=== PATIENT | male | born 1950 | race Caucasian/White ===

== ENCOUNTER 2020-07-10 07:02 | Outpatient (REF) | payer SELFPAY ==
[2020-07-10 07:32] LABS: Hematocrit 34.9 % (42-52); Hemoglobin 10.9 g/dl (14.0-18.0); Mean Corpuscular HGB Conc 31.2 g/dl (31.0-36.0); Mean Corpuscular Hemoglobin 27.6 pg (27.0-33.0); Mean Corpuscular Volume 88.4 fL (80-98); Mean Platelet Volume 11.6 fL (9.4-12.4); Platelet Count 590 X10*3/uL (160-400); Red Blood Count 3.95 X10*6/uL (4.60-5.80); Red Cell Distribution Width 15.4 % (11.0-16.0); White Blood Count 17.2 X10*3/uL (4.8-10.8)
[2020-07-10 07:55] LABS: Alanine Aminotransferase 8 U/L (0-40); Albumin Level 2.7 g/dL (3.5-5.0); Alkaline Phosphatase 161 U/L (39-117); Anion Gap 14 (12-20); Aspartate Amino Transferase 12 U/L (5-37); Bilirubin Total 0.3 mg/dL (0.0-1.0); Blood Urea Nitrogen 53 mg/dL (9-16); Calcium 8.2 mg/dL (8.4-10.2); Carbon Dioxide 28 mmol/L (22-29); Chloride 101 mmol/L (96-108); Estimated Glomerular Filt Rate 36; Glucose Random 143 mg/dL (60-115); Sodium 138 mmol/L (135-145); Total Protein 5.3 g/dL (6.5-8.0)
== END 2020-07-10 07:03 | disposition home or self-care (01) ==
LOC: HO.MMNH1L 07:02
PROVIDERS: Visit Provider Family Medicine
DX: L03.116 Cellulitis of left lower limb (principal)
CPT/HCPCS: 36415; 80053; 85027

== ENCOUNTER 2020-07-25 09:56 | Inpatient (IN) | payer MEDICARE, OTHER, SELFPAY ==
[2020-07-25] VITALS (15 sets, daily range): BP systolic 104–151; BP diastolic 63–94; PULSE 80–123; RESP 20–28; TEMP 34.3–36.6; O2SAT 93–100; BMI 25.8; BMI 26.7; BMI 24.9
--- NOTE | 2020-07-25 10:15 | ECG_ITS ---
Test Reason : AMS Blood Pressure : / mmHG Vent. Rate : 084 BPM Atrial Rate : 084 BPM P-R Int : 200 ms QRS Dur : 088 ms QT Int : 400 ms P-R-T Axes : 058 -37 056 degrees QTc Int : 472 ms Sinus rhythm with occasional Premature ventricular complexes Left axis deviation Low voltage QRS Inferior infarct , age undetermined Abnormal ECG No previous ECGs available Referred By: César Mccartney Electronically Signed By:HOANG PHELAN MD
--- NOTE | 2020-07-25 10:16 | XR_ITS ---
EXAMINATION: XR CHEST CLINICAL INFORMATION: Low lung volumes. COMPARISON: None TECHNIQUE: Frontal view of the chest was obtained. FINDINGS: Low lung volumes limit evaluation. The lungs are clear. The heart and mediastinal structures are unremarkable. XR/XR chest 1V IMPRESSION: Limited study. No acute cardiopulmonary process.
--- NOTE | 2020-07-25 10:17 | CT_ITS ---
EXAMINATION: CT HEAD WITHOUT CONTRAST CLINICAL INFORMATION: Acute mental status change. COMPARISON: None TECHNIQUE: Contiguous axial imaging was performed from the skull base to vertex without intravenous administration of contrast. Coronal and sagittal reformatted images were obtained. There is some limitation to the study secondary to motion artifact and difficulty with patient positioning. A repeat scan dated secondary to motion artifact on the first attempt. This CT examination was performed using dose optimization techniques as appropriate, variously including the following: *Automated exposure control *Adjustment of mA and/or kV according to patient size (this includes techniques or standardized protocols for targeted exams where dose is matched to indication/reason for exam; i.e. extremities or head) *Use of iterative reconstruction technique DLP: 1733 mGy-cm FINDINGS: A linear focus of low-attenuation is seen superiorly in the left parietal lobe (image 43, series 3). There is no evidence of acute intracranial hemorrhage. No abnormal mass effect or midline shift is seen. [place] to white matter differentiation is well preserved. No extra-axial fluid collections are identified. The ventricles are normal in size. Mild cortical atrophy is seen. The osseous structures and soft tissues are normal. The mastoid air cells and visualized portions of the paranasal sinuses are well aerated. Mild mid nasal septal deviation, apex the left is seen. CT/CT head/brain wo con IMPRESSION: Linear focus of low-attenuation in the left parietal lobe is nonspecific. This may be secondary to chronic microvascular changes or old infarct in the distribution of the left middle cerebral artery. This does not have an acute appearance. No evidence for acute intracranial hemorrhage. If symptoms persist or worsen, brain MRI should be considered.
[2020-07-25] MEDS: 0.9 % Sodium Chloride 1,000 ML 999 ML IVCONT ×2 (10:26→11:50)
--- NOTE | 2020-07-25 10:34 | PC.NURSE ---
PT TO CT SCAN
[2020-07-25 10:42] LABS: MANUAL DIFF FLAG NO
[2020-07-25 10:43] LABS: Basophils Percent Auto 0.1 % (0-2); Hematocrit 34.2 % (42-52); Hemoglobin 10.5 g/dl (14.0-18.0); Imm Gran Abs Auto 0.09 X10*3/uL (0.00-0.03); Imm Gran Pct Auto 0.6 % (0.0-0.4); Lymphocytes Absolute Auto 0.9 X10*3/uL (1.2-4.9); Lymphocytes Percent Auto 6.7 % (20-40); Mean Corpuscular HGB Conc 30.7 g/dl (31.0-36.0); Mean Corpuscular Hemoglobin 27.2 pg (27.0-33.0); Mean Corpuscular Volume 88.6 fL (80-98); Mean Platelet Volume 10.1 fL (9.4-12.4); Monocytes Absolute Auto 1.3 X10*3/uL (0.1-1.2); Monocytes Percent Auto 9.4 % (2-11); Neutrophils Absolute Auto 11.6 X10*3/uL (2.0-8.3); Neutrophils Percent Auto 83.2 % (45-73); Platelet Count 226 X10*3/uL (160-400); Red Blood Count 3.86 X10*6/uL (4.60-5.80); Red Cell Distribution Width 16.4 % (11.0-16.0); White Blood Count 13.9 X10*3/uL (4.8-10.8)
[2020-07-25 10:48] LABS: INTERNATIONAL NORM RATIO 1.1 (0.9-1.1); Prothrombin Time 12.5 SEC (10.8-13.0)
--- NOTE | 2020-07-25 10:56 | PC.NURSE ---
pt was st cath for urine spec bladder emptied of approx 800ml
--- NOTE | 2020-07-25 10:57 | PC.NURSE ---
pts left lower leg with edema and blistering, draining upper portion of leg swollen and pink in color compared to right
--- NOTE | 2020-07-25 11:05 | ED.AMS ---
HPI - Altered Mental Status General Chief Complaint: Altered Mental Status Stated Complaint: ams Time Seen by Provider: 07/25/20 10:13 Source: EMS Mode of arrival: EMS Limitations: altered mental status History of Present Illness HPI narrative: patient from rehab center with history of hypertension chronic renal disease schizoaffective disorder bipolar disorder chronic lymphedema the left leg sent here for increased confusion and change in mental status starting today patient was seen by nurse practitioner on 07/21 at that time patient was healthy appearing well nourished and well developed without any significant change in mental status MD complaint: altered mental status and decreased responsiveness Onset (ago): day(s) (1) Timing confirmed by: caregiver Related Data Home Medications Medication Instructions Recorded Confirmed acetaminophen [Tylenol] 650 mg PO Q6H PRN 07/25/20 07/25/20 betamethasone dipropionate 1 applic TOPICAL BID 07/25/20 07/25/20 bisacodyl [Dulcolax (bisacodyl)] 10 mg VA DAILY PRN 07/25/20 07/25/20 escitalopram oxalate 5 mg PO DAILY 07/25/20 07/25/20 gabapentin 100 mg PO TID 07/25/20 07/25/20 levothyroxine 100 mcg PO DAILY 07/25/20 07/25/20 magnesium hydroxide [Milk of 400 mg PO DAILY PRN 07/25/20 07/25/20 Magnesia] morphine 30 mg PO Q12H 07/25/20 07/25/20 oxycodone 10 mg PO Q4H PRN 07/25/20 07/25/20 spironolactone 25 mg PO DAILY 07/25/20 07/25/20 trazodone 50 mg PO BEDTIME 07/25/20 07/25/20 Allergies Allergy/AdvReac Type Severity Reaction Status Date / Time prochlorperazine Allergy Unknown unknown Verified 07/25/20 10:15 Review of Systems Review of Systems: Yes Unobtainable due to mental status Neurologic: Reports Abnormal speech present and Reports confusion Psychiatric: Psychiatric: Reports confusion PMFSH Past Medical History Medical History (Updated 07/25/20 @ 16:35 by César Mccartney MD) Abnormality of gait and mobility Anxiety Cellulitis of left leg Chronic kidney disease (CKD) 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 Dysphagia Gout Hypertension Hypothyroidism Lymphedema Major depression, recurrent Mesenteric lymphadenitis Mood disorder Muscle weakness (generalized) Non Hodgkin's lymphoma Non-Hodgkin lymphoma Schizoaffective disorder, bipolar type Social History Social History Advance Directives: No Advance Directives Information Provided: No Physical Exam Vital Signs: Vital Signs: Last Vital Signs Temp 93.9 F L 07/25/20 16:35 Pulse 119 H 07/25/20 16:35 Resp 20 07/25/20 16:35 BP 131/81 07/25/20 16:35 Pulse Ox 100 07/25/20 16:35 Body Mass Index 26.7 Const: General: no acute distress, confusion and lethargic Nutritional Appearance: average body habitus and well nourished Orientation/consciousness: oriented to person, confusion and lethargic Limitations: altered mental status HENMT: Head: Yes normal to inspection Ears: hearing grossly normal bilaterally Mouth: Normal oral and palatal mucosa present and moist mucous membranes Eyes: General: appearance normal, both eyes and all related structures Pupils: Equal, round and reactive pupils present Neck: Neck: Yes normal visual inspection Chest: Chest palpation & inspection: normal inspection of the chest Resp: Other: thick secretions in the mouth tachypneic Effort & Inspection: abnormal respiratory pattern and respiratory distress (moderate) Auscultation: crackles, rales and no rhonchi Cardio: Rate: regular rate Rhythm: regular rhythm Heart sounds: S1 normal heart sound present and S2 normal heart sound present Peripheral pulses: Peripheral pulses 2+ throughout GI: Inspection: Yes normal to inspection Palpation (GI): Soft to palpation, Firmness to palpation present (GI), nontender, no guarding and hepatosplenomegaly present Rectal Exam - Male: Yes deferred : General: Yes no CVA tenderness Back/Spine/Pelvis: Back: no CVA tenderness Thoracic/Lumbar Spine: thoracic and lumbar spine normal to inspection Skin: Rashes: other ( erythema left lower extremity) Neuro: General: oriented to person, confusion and Unable to assess gait Cranial nerves: Yes CN's II-XII intact bilaterally and Yes Equal, round and reactive pupils present Speech: Abnormal speech present Gait exam (Neuro): Unable to assess gait Motor exam (neuro): Pronator motor function not present Extrem: Ankle/foot/toe images: 1. 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 Hence LP was done to rule out any encephalopathy. Patient was intubated for the procedure and hypoxia. Will admit patient to ICU Time: 16:31 Reevaluation #2: patient head CT was negative for any acute inflammatory response spinal tap also was done which is negative for any bacterial meningitis patient started on acyclovir for now. Already patient received vancomycin and Zosyn. Chest CT scan showed bilateral infiltrate more on the left lower lobe and right middle lobe patient's symptoms likely from metabolic encephalopathy patient's Micki was informed about the prognosis and the management Procedures Intubation Time out performed: Yes sedative: Etomidate Mg Given: 20 paralytic: Rocuronium Mg Given: 50 Laryngoscope: Estefany Assist Device Used: fiber optic device ET Tube Size: 7.5 ET Tube Uncuffed: Yes Tube Secured Location: teeth Tube Placement Confirmation: visualized tube passing through cords, equal breath sounds bilaterally and confirmation by capnometry Patient Tolerated Procedure: well Intubation Complications: none Lumbar Puncture Time Out Performed: Yes Patient Position: right lateral decubitus Skin Prep: Povidone-Iodine 1% Spinal Needle Gauge: 22G Interspace Used: L3-L4 Fluid Initially Obtained: clear Complications: none MDM - Altered Mental Status Medical Records Attestation: I reviewed the patient's medical records. Lab Data Attestation: I reviewed the patient's lab results. Result diagrams: 07/25/20 10:29 07/25/20 10:29 Labs: Lab Results 07/25/20 07/25/20 07/25/20 Range/Units 10:28 10:28 10:29 WBC 13.9 H (4.8-10.8) X10*3/uL RBC 3.86 L (4.60-5.80) X10*6/uL Hgb 10.5 L (14.0-18.0) g/dl Hct 34.2 L (42-52) % MCV 88.6 (80-98) fL MCH 27.2 (27.0-33.0) pg MCHC 30.7 L (31.0-36.0) g/dl RDW 16.4 H (11.0-16.0) % Plt Count 226 D (160-400) X10*3/uL MPV 10.1 (9.4-12.4) fL Immature Gran % (Auto) 0.6 H (0.0-0.4) % Neut % (Auto) 83.2 H (45-73) % Lymph % (Auto) 6.7 L (20-40) % Floyd % (Auto) 9.4 (2-11) % Eos % (Auto) 0.0 (0-4) % Baso % (Auto) 0.1 (0-2) % Lymph # (Auto) 0.9 L (1.2-4.9) X10*3/uL Floyd # (Auto) 1.3 H (0.1-1.2) X10*3/uL Eos # (Auto) 0.0 (0.0-0.4) X10*3/uL Baso # (Auto) 0.0 (0.0-0.2) X10*3/uL Abs Immat Gran (auto) 0.09 H (0.00-0.03) X10*3/uL Absolute Neuts (auto) 11.6 H (2.0-8.3) X10*3/uL Absolute Nucleated RBC 0.000 (0.0-0.012) X10*3/uL Nucleated RBC % (auto) 0.0 (0.0-0.2) /100WBC PT 12.5 (10.8-13.0) SEC INR 1.1 (0.9-1.1) Sodium (135-145) mmol/L Potassium (3.3-5.1) mmol/l Chloride (96-108) mmol/L Carbon Dioxide (22-29) mmol/L Anion Gap (12-20) BUN (9-16) mg/dL Creatinine (0.5-1.4) mg/dL Estim Creat Clear Calc Estimated GFR Random Glucose (60-115) mg/dL Lactic Acid 2.8 H* (0.5-2.0) mmol/L Lactic Acid Fup @ 2Hr (0.5-2.0) mmol/L Calcium (8.4-10.2) mg/dL Total Bilirubin (0.0-1.0) mg/dL Direct Bilirubin (0.0-0.5) mg/dL AST (5-37) U/L ALT (0-40) U/L Alkaline Phosphatase (39-117) U/L Troponin I High Sens (<3.5-35.0) ng/L B-Natriuretic Peptide (<100) pg/mL Total Protein (6.5-8.0) g/dL Albumin (3.5-5.0) g/dL Urine Color Urine Appearance Urine pH (5.0-8.0) Ur Specific [place] (1.005-1.025) Urine Protein (NEG-TRACE) MG/DL Urine Glucose (UA) (NEG) MG/DL Urine Ketones (NEG) MG/DL Urine Blood (NEG) Urine Nitrite (NEG) Ur Leukocyte Esterase (NEG) CSF Tube Number CSF Volume ML CSF Appearance CSF Color CSF WBC MM*3 CSF RBC MM*3 CSF Neutrophils % CSF Lymphocytes % CSF Monocytes % % CSF Other Cells % % CSF Appearance (b) CSF Glucose mg/dL CSF Total Protein (15-45) mg/dL Coronavirus (PCR) (Negative) Influenza Type A (PCR) (Negative) Influenza Type B (PCR) (Negative) RSV RNA Qual (PCR) (Negative) 07/25/20 07/25/20 07/25/20 Range/Units 10:29 10:29 10:47 WBC (4.8-10.8) X10*3/uL RBC (4.60-5.80) X10*6/uL Hgb (14.0-18.0) g/dl Hct (42-52) % MCV (80-98) fL MCH (27.0-33.0) pg MCHC (31.0-36.0) g/dl RDW (11.0-16.0) % Plt Count (160-400) X10*3/uL MPV (9.4-12.4) fL Immature Gran % (Auto) (0.0-0.4) % Neut % (Auto) (45-73) % Lymph % (Auto) (20-40) % Floyd % (Auto) (2-11) % Eos % (Auto) (0-4) % Baso % (Auto) (0-2) % Lymph # (Auto) (1.2-4.9) X10*3/uL Floyd # (Auto) (0.1-1.2) X10*3/uL Eos # (Auto) (0.0-0.4) X10*3/uL Baso # (Auto) (0.0-0.2) X10*3/uL Abs Immat Gran (auto) (0.00-0.03) X10*3/uL Absolute Neuts (auto) (2.0-8.3) X10*3/uL Absolute Nucleated RBC (0.0-0.012) X10*3/uL Nucleated RBC % (auto) (0.0-0.2) /100WBC PT (10.8-13.0) SEC INR (0.9-1.1) Sodium 139 (135-145) mmol/L Potassium 4.8 (3.3-5.1) mmol/l Chloride 105 (96-108) mmol/L Carbon Dioxide 21 L (22-29) mmol/L Anion Gap 18 (12-20) BUN 36 H (9-16) mg/dL Creatinine 1.46 H (0.5-1.4) mg/dL Estim Creat Clear Calc 53.2 Estimated GFR 48 Random Glucose 170 H (60-115) mg/dL Lactic Acid (0.5-2.0) mmol/L Lactic Acid Fup @ 2Hr (0.5-2.0) mmol/L Calcium 8.3 L (8.4-10.2) mg/dL Total Bilirubin 0.5 (0.0-1.0) mg/dL Direct Bilirubin < 0.2 (0.0-0.5) mg/dL AST 16 (5-37) U/L ALT 9 (0-40) U/L Alkaline Phosphatase 115 D (39-117) U/L Troponin I High Sens < 3.5 (<3.5-35.0) ng/L B-Natriuretic Peptide 126 H (<100) pg/mL Total Protein 6.0 L (6.5-8.0) g/dL Albumin 3.1 L (3.5-5.0) g/dL Urine Color DARK YELLOW Urine Appearance HAZY Urine pH 5.5 (5.0-8.0) Ur Specific [place] >= 1.030 H (1.005-1.025) Urine Protein NEG (NEG-TRACE) MG/DL Urine Glucose (UA) NEG (NEG) MG/DL Urine Ketones NEG (NEG) MG/DL Urine Blood NEG (NEG) Urine Nitrite NEG (NEG) Ur Leukocyte Esterase NEG (NEG) CSF Tube Number CSF Volume ML CSF Appearance CSF Color CSF WBC MM*3 CSF RBC MM*3 CSF Neutrophils % CSF Lymphocytes % CSF Monocytes % % CSF Other Cells % % CSF Appearance (b) CSF Glucose mg/dL CSF Total Protein (15-45) mg/dL Coronavirus (PCR) (Negative) Influenza Type A (PCR) (Negative) Influenza Type B (PCR) (Negative) RSV RNA Qual (PCR) (Negative) 07/25/20 07/25/20 07/25/20 Range/Units 11:55 15:07 15:07 WBC (4.8-10.8) X10*3/uL RBC (4.60-5.80) X10*6/uL Hgb (14.0-18.0) g/dl Hct (42-52) % MCV (80-98) fL MCH (27.0-33.0) pg MCHC (31.0-36.0) g/dl RDW (11.0-16.0) % Plt Count (160-400) X10*3/uL MPV (9.4-12.4) fL Immature Gran % (Auto) (0.0-0.4) % Neut % (Auto) (45-73) % Lymph % (Auto) (20-40) % Floyd % (Auto) (2-11) % Eos % (Auto) (0-4) % Baso % (Auto) (0-2) % Lymph # (Auto) (1.2-4.9) X10*3/uL [place] # (Auto) (0.1-1.2) X10*3/uL Eos # (Auto) (0.0-0.4) X10*3/uL Baso # (Auto) (0.0-0.2) X10*3/uL Abs Immat Gran (auto) (0.00-0.03) X10*3/uL Absolute Neuts (auto) (2.0-8.3) X10*3/uL Absolute Nucleated RBC (0.0-0.012) X10*3/uL Nucleated RBC % (auto) (0.0-0.2) /100WBC PT (10.8-13.0) SEC INR (0.9-1.1) Sodium (135-145) mmol/L Potassium (3.3-5.1) mmol/l Chloride (96-108) mmol/L Carbon Dioxide (22-29) mmol/L Anion Gap (12-20) BUN (9-16) mg/dL Creatinine (0.5-1.4) mg/dL Estim Creat Clear Calc Estimated GFR Random Glucose (60-115) mg/dL Lactic Acid (0.5-2.0) mmol/L Lactic Acid Fup @ 2Hr (0.5-2.0) mmol/L Calcium (8.4-10.2) mg/dL Total Bilirubin (0.0-1.0) mg/dL Direct Bilirubin (0.0-0.5) mg/dL AST (5-37) U/L ALT (0-40) U/L Alkaline Phosphatase (39-117) U/L Troponin I High Sens (<3.5-35.0) ng/L B-Natriuretic Peptide (<100) pg/mL Total Protein (6.5-8.0) g/dL Albumin (3.5-5.0) g/dL Urine Color Urine Appearance Urine pH (5.0-8.0) Ur Specific [place] (1.005-1.025) Urine Protein (NEG-TRACE) MG/DL Urine Glucose (UA) (NEG) MG/DL Urine Ketones (NEG) MG/DL Urine Blood (NEG) Urine Nitrite (NEG) Ur Leukocyte Esterase (NEG) CSF Tube Number 1 4 CSF Volume 1.5 ML CSF Appearance CLEAR CSF Color COLORLESS CSF WBC 3 MM*3 CSF RBC 2 MM*3 CSF Neutrophils 0 % CSF Lymphocytes 100 % CSF Monocytes % 0 % CSF Other Cells % 0 % CSF Appearance (b) Clear, Colorless CSF Glucose 80 mg/dL CSF Total Protein 35.9 (15-45) mg/dL Coronavirus (PCR) NEGATIVE (Negative) Influenza Type A (PCR) NEGATIVE (Negative) Influenza Type B (PCR) NEGATIVE (Negative) RSV RNA Qual (PCR) NEGATIVE (Negative) 07/25/20 Range/Units 15:41 WBC (4.8-10.8) X10*3/uL RBC (4.60-5.80) X10*6/uL Hgb (14.0-18.0) g/dl Hct (42-52) % MCV (80-98) fL MCH (27.0-33.0) pg MCHC (31.0-36.0) g/dl RDW (11.0-16.0) % Plt Count (160-400) X10*3/uL MPV (9.4-12.4) fL Immature Gran % (Auto) (0.0-0.4) % Neut % (Auto) (45-73) % Lymph % (Auto) (20-40) % Floyd % (Auto) (2-11) % Eos % (Auto) (0-4) % Baso % (Auto) (0-2) % Lymph # (Auto) (1.2-4.9) X10*3/uL [place] # (Auto) (0.1-1.2) X10*3/uL Eos # (Auto) (0.0-0.4) X10*3/uL Baso # (Auto) (0.0-0.2) X10*3/uL Abs Immat Gran (auto) (0.00-0.03) X10*3/uL Absolute Neuts (auto) (2.0-8.3) X10*3/uL Absolute Nucleated RBC (0.0-0.012) X10*3/uL Nucleated RBC % (auto) (0.0-0.2) /100WBC PT (10.8-13.0) SEC INR (0.9-1.1) Sodium (135-145) mmol/L Potassium (3.3-5.1) mmol/l Chloride (96-108) mmol/L Carbon Dioxide (22-29) mmol/L Anion Gap (12-20) BUN (9-16) mg/dL Creatinine (0.5-1.4) mg/dL Estim Creat Clear Calc Estimated GFR Random Glucose (60-115) mg/dL Lactic Acid (0.5-2.0) mmol/L Lactic Acid Fup @ 2Hr 2.0 (0.5-2.0) mmol/L Calcium (8.4-10.2) mg/dL Total Bilirubin (0.0-1.0) mg/dL Direct Bilirubin (0.0-0.5) mg/dL AST (5-37) U/L ALT (0-40) U/L Alkaline Phosphatase (39-117) U/L Troponin I High Sens (<3.5-35.0) ng/L B-Natriuretic Peptide (<100) pg/mL Total Protein (6.5-8.0) g/dL Albumin (3.5-5.0) g/dL Urine Color Urine Appearance Urine pH (5.0-8.0) Ur Specific [place] (1.005-1.025) Urine Protein (NEG-TRACE) MG/DL Urine Glucose (UA) (NEG) MG/DL Urine Ketones (NEG) MG/DL Urine Blood (NEG) Urine Nitrite (NEG) Ur Leukocyte Esterase (NEG) CSF Tube Number CSF Volume ML CSF Appearance CSF Color CSF WBC MM*3 CSF RBC MM*3 CSF Neutrophils % CSF Lymphocytes % CSF Monocytes % % CSF Other Cells % % CSF Appearance (b) CSF Glucose mg/dL CSF Total Protein (15-45) mg/dL Coronavirus (PCR) (Negative) Influenza Type A (PCR) (Negative) Influenza Type B (PCR) (Negative) RSV RNA Qual (PCR) (Negative) Imaging Data CT scan - head: Attestation: I personally reviewed and interpreted this imaging study as follows: Radiologist's impression: CT/CT head/brain wo con IMPRESSION: Linear focus of low-attenuation in the left parietal lobe is nonspecific. This may be secondary to chronic microvascular changes or old infarct in the distribution of the left middle cerebral artery. This does not have an acute appearance. No evidence for acute intracranial hemorrhage. If symptoms persist or worsen, brain MRI should be considered. ECG Data ECG #1: Attestation: I personally reviewed and interpreted this ECG as follows: ECG interpretation date: 07/25/20 Interpretation: normal sinus rhythm with ventricular rate of 84 left axis deviation Q-waves in inferior leads no acute ischemia Critical Care Time Critical Care Time Critical Care Time: Yes Total Critical Care Time: 60 Attestation: includes patient care excluding procedure Discharge Plan Discharge Clinical Impression: Acute metabolic encephalopathy, Acute alteration in mental status Pneumonia Qualifiers: Pneumonia type: due to unspecified organism Laterality: bilateral Lung location: lower lobe of lung Qualified Code(s): J18.9 - Pneumonia, unspecified organism Sepsis Qualifiers: Sepsis type: sepsis due to unspecified organism Sepsis acute organ dysfunction status: with acute organ dysfunction Severe sepsis acute organ dysfunction type: encephalopathy Severe sepsis shock status: without septic shock Qualified Code(s): A41.9 - Sepsis, unspecified organism Patient Disposition: Admitted As Inpatient
[2020-07-25 11:08] LABS: Glucose Urine UA NEG (NEG); Leukocyte Esterase Urine NEG (NEG); Nitrite Urine NEG (NEG); PH 5.5 (5.0-8.0); Specific Gravity - Urine >= 1.030 (1.005-1.025); Urine Blood NEG (NEG); Urine Ketones NEG (NEG); Urine Protein NEG (NEG-TRACE)
[2020-07-25 11:12] LABS: Appearance Urine HAZY; Color Urine DARK YELLOW
[2020-07-25 11:25] LABS: Lactic Acid 2.8 mmol/L (0.5-2.0)
--- NOTE | 2020-07-25 11:31 | XR_ITS ---
EXAMINATION: XR TIBIA AND FIBULA, LEFT CLINICAL INFORMATION: Cellulitis. COMPARISON: None TECHNIQUE: AP and lateral views of the left tibia and fibula were obtained. FINDINGS: Severe tibiotalar degenerative joint changes are seen. There is no acute fracture or dislocation. The tibia and fibula are intact. Mild to moderate soft tissue swelling is seen most pronounced surrounding the ankle. No subcutaneous emphysema is seen. XR/XR tibia fibula LT 2V IMPRESSION: 1. Severe tibiotalar degenerative joint changes without acute fracture. Correlate with physical exam and patient history. 2. Mild to moderate soft tissue swelling without overt acute emphysema.
[2020-07-25 11:39] LABS: Alanine Aminotransferase 9 U/L (0-40); Albumin Level 3.1 g/dL (3.5-5.0); Alkaline Phosphatase 115 U/L (39-117); Aspartate Amino Transferase 16 U/L (5-37); Bilirubin Direct < 0.2 mg/dL (0.0-0.5); Bilirubin Total 0.5 mg/dL (0.0-1.0)
[2020-07-25] MEDS: Piperacillin Sodium/Tazobactam 3.375 GM in 0.9 % Sodium Chloride 50 ML IV (11:50)
[2020-07-25 12:40] LABS: Reflex Lactate? Lactic Acid Added
[2020-07-25 12:41] LABS: Influenza A PCR NEGATIVE (Negative); Influenza B PCR NEGATIVE (Negative); Resp Syncy Virus RNA Qual PCR NEGATIVE (Negative); SARS COV2 PCR INHOUSE NEGATIVE (Negative)
[2020-07-25] MEDS: vancomycin HCL 1,000 MG in 0.9 % Sodium Chloride 250 ML 270 MG IV (13:02)
[2020-07-25 13:21] LABS: Anion Gap 18 (12-20); Blood Urea Nitrogen 36 mg/dL (9-16); Calcium 8.3 mg/dL (8.4-10.2); Carbon Dioxide 21 mmol/L (22-29); Chloride 105 mmol/L (96-108); Creatinine Clr Calc Pharmacy 53.2; Estimated Glomerular Filt Rate 48; Glucose Random 170 mg/dL (60-115); Potassium 4.8 mmol/l (3.3-5.1); Sodium 139 mmol/L (135-145)
[2020-07-25] MEDS: Furosemide 20 MG/2 ML VIAL IVPUSH (14:10)
[2020-07-25 14:22] LABS: B Type Natriuretic Peptide 126 pg/mL (<100); Troponin-I High Sensitivity < 3.5 ng/L (<3.5-35.0)
--- NOTE | 2020-07-25 14:54 | CT_ITS ---
EXAMINATION: CT CHEST WITH CONTRAST CLINICAL INFORMATION: Atypical pneumonia. Acute mental status change. COMPARISON: Previous chest x-ray from earlier the same day TECHNIQUE: Multidetector volumetric CT imaging of the chest was obtained after the administration of 65 mL of Omnipaque 350 intravenous contrast without immediate adverse reactions. Axial MIP volume rendering provided. Sagittal and coronal reformatted images were obtained. This CT examination was performed using dose optimization techniques as appropriate, variously including the following: *Automated exposure control *Adjustment of mA and/or kV according to patient size (this includes techniques or standardized protocols for targeted exams where dose is matched to indication/reason for exam; i.e. extremities or head) *Use of iterative reconstruction technique DLP: 318 mGy-cm FINDINGS: LUNGS: There is an endotracheal tube with tip 3.5 cm above the jael. There is dense airspace disease seen in the left lower lobe with air bronchograms. There is soft tissue opacification of the left lower lobe bronchus. There is patchy airspace disease seen in the lingula. There is patchy airspace disease seen in the right lower lobe. There is a more linear-appearing subsegmental atelectasis or infiltrate seen in the posterior segment of the right upper lobe adjacent to the major fissure. Appearance is not typical of Covid infection. MEDIASTINUM: There is mediastinal lymphadenopathy. There is a nasogastric tube with tip in the stomach. There is question of fluid seen in the lower posterior mediastinum adjacent to the distal thoracic esophagus versus possibly loculated pleural effusions or necrotic or cystic change of lymph nodes. For example, on the right measuring 2.7 x 5 cm and on the left measuring 2 x 4 cm axial image 40 series 7. The heart is slightly enlarged. There is mild coronary artery calcification. There is no pericardial effusion. PLEURA: There is a trace left pleural effusion. AXILLA: No chest wall mass or enlarged axillary lymph nodes are seen. UPPER ABDOMEN: Evaluation of the abdomen is limited due to artifact from the patient's hands being at his side. There is decreased attenuation in the high posterior right lobe of the liver for example axial image 48 series 7 and in the spleen, question related to artifact from the patient's arms. The gallbladder is prominent. There is a small amount of ascites. There is question of infiltration of the fat in the anterior upper abdomen in the region of the greater omentum. OSSEOUS STRUCTURES: There are degenerative changes of the spine and at the left shoulder. CT/CT chest w con IMPRESSION: Bilateral multilobar pneumonia, greatest in the left lower lobe. Appearance is atypical for Covid infection. Satisfactory position of nasogastric tube and endotracheal tubes. Diffuse mediastinal lymphadenopathy. Low-attenuation seen in the posterior mediastinum adjacent to the distal thoracic esophagus, question representing mediastinal fluid collection versus cystic or necrotic change of a lymph node versus loculated pleural fluid. Clinical correlation recommended. Small amount of ascites seen in the upper abdomen. Question of infiltration of the fat in the anterior upper abdomen in the region of the greater omentum. Low-attenuation area seen in the liver and spleen, probably artifactual due to the patient's arms being at his side. These findings could be better evaluated with dedicated CT of the abdomen and pelvis if clinically indicated.
--- NOTE | 2020-07-25 14:54 | CT_ITS ---
EXAMINATION: CT HEAD WITH CONTRAST CLINICAL INFORMATION: Altered mental status, possible encephalitis COMPARISON: CT had noncontrast 07/25/2020 TECHNIQUE: Contiguous axial imaging was performed from the skull base to vertex following the administration of 65 mL of Omnipaque 350 intravenous contrast. Additional coronal and sagittal reformatted images are generated on the CT workstation and uploaded to PACS. This CT examination was performed using dose optimization techniques as appropriate, variously including the following: *Automated exposure control *Adjustment of mA and/or kV according to patient size (this includes techniques or standardized protocols for targeted exams where dose is matched to indication/reason for exam; i.e. extremities or head) *Use of iterative reconstruction technique DLP: 914 mGy-cm FINDINGS: There is no intracranial hemorrhage, hematoma, or extra-axial fluid collection. The ventricles are normal in size. There is no hydrocephalus, edema, or mass effect. There is normal enhancement. No enhancing parenchymal or extra-axial lesion. No abnormal leptomeningeal enhancement. Vascularity is unremarkable. The cavernous sinuses are symmetric. There is focal gliosis anterior left periventricular white matter similar to noncontrast exam. No abnormal parenchymal enhancement. The stone-white matter differentiation is otherwise symmetric. There is no visible acute territorial infarct or mass lesion. The calvarium appears intact. There is no pneumocephalus or orbital emphysema. The visualized sinuses and middle ears and mastoid air cells show no significant mucosal thickening. There are no air-fluid levels. CT/CT head/brain w con IMPRESSION: 1. Left periventricular white matter gliosis similar to noncontrast exam 07/25/2020. 2. No abnormal enhancement.
--- NOTE | 2020-07-25 15:22 | PM.CCHP ---
History of Present Illness Date of Service: 07/25/20 Chief Complaint: altered mental status 70-year-old male background history of non-Hodgkin's lymphoma and CLL but not on any current chemotherapy or immunosuppressive therapy with underlying schizoaffective disorder but within normal mental status and normal cognitive ability noted to be altered and in the emergency room became markedly delirious and agitated in addition he became hypothermic he required urgent intubation which was done without complication and following this sedation we obtained permission for an urgent spinal tap and CSF was obtained but was clear and colorless and the results are pending and the patient will subsequently be sent for CT scan of brain chest and abdomen did being done with contrast and was covered with an initial dose of vancomycin and Zosyn and acyclovir Review of Systems Review of Systems: Yes Unobtainable due to mental status Neurologic: Reports Abnormal speech present and Reports confusion Psychiatric: Psychiatric: Reports confusion PMFSH Past Medical History Medical History Abnormality of gait and mobility Anxiety Cellulitis of left leg Chronic kidney disease (CKD) 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 Dysphagia Gout Hypertension Hypothyroidism Lymphedema Major depression, recurrent Mesenteric lymphadenitis Mood disorder Muscle weakness (generalized) Non-Hodgkin lymphoma Schizoaffective disorder, bipolar type Social History Social History Advance Directives: No Advance Directives Information Provided: No Meds Allergies Allergy/AdvReac Type Severity Reaction Status Date / Time prochlorperazine Allergy Unknown unknown Verified 07/25/20 10:15 Home Medications Medication Instructions Recorded Confirmed Type acetaminophen [Tylenol] 650 mg PO Q6H PRN 07/25/20 07/25/20 History betamethasone dipropionate 1 applic TOPICAL BID 07/25/20 07/25/20 History bisacodyl [Dulcolax (bisacodyl)] 10 mg [place] DAILY PRN 07/25/20 07/25/20 History escitalopram oxalate 5 mg PO DAILY 07/25/20 07/25/20 History gabapentin 100 mg PO TID 07/25/20 07/25/20 History levothyroxine 100 mcg PO DAILY 07/25/20 07/25/20 History magnesium hydroxide [Milk of 400 mg PO DAILY PRN 07/25/20 07/25/20 History Magnesia] morphine 30 mg PO Q12H 07/25/20 07/25/20 History oxycodone 10 mg PO Q4H PRN 07/25/20 07/25/20 History spironolactone 25 mg PO DAILY 07/25/20 07/25/20 History trazodone 50 mg PO BEDTIME 07/25/20 07/25/20 History Physical Exam Vital Signs: Vital Signs: Last Vital Signs Temp 94.6 F L 07/25/20 14:24 Pulse 110 H 07/25/20 14:24 Resp 28 H 07/25/20 14:24 BP 146/79 H 07/25/20 14:00 Pulse Ox 97 07/25/20 14:00 Body Mass Index 26.7 highly agitated delirium capable of moving all 4 extremities left lower extremity was markedly swollen and very distorted anatomy with overlying shallow diffuse bullous lesions in the anterior tibial compartment with significant rubor and warmth cardiovascular with bedside echo demonstrating hyperdynamic left ventricle with all 4 chambers normal and no primary valve or pericardial disease chest x-ray implied some interstitial disease abdomen soft no palpable organomegaly nondistended no guarding EKG normal sinus rhythm with left axis no acute changes Const: General: confusion Orientation/consciousness: confusion Neuro: General: confusion Speech: Abnormal speech present Results Labs CBC and Chem 7: 07/25/20 10:29 07/25/20 10:29 Labs: Laboratory Results - last 24 hr 07/25/20 07/25/20 07/25/20 10:28 10:28 10:29 MCV 88.6 MCH 27.2 MCHC 30.7 L RDW 16.4 H Plt Count 226 D MPV 10.1 Immature Gran % (Auto) 0.6 H Neut % (Auto) 83.2 H Lymph % (Auto) 6.7 L [place] % (Auto) 9.4 Eos % (Auto) 0.0 Baso % (Auto) 0.1 Lymph # (Auto) 0.9 L [place] # (Auto) 1.3 H Eos # (Auto) 0.0 Baso # (Auto) 0.0 Abs Immat Gran (auto) 0.09 H Absolute Neuts (auto) 11.6 H Absolute Nucleated RBC 0.000 Nucleated RBC % (auto) 0.0 PT 12.5 INR 1.1 Anion Gap Estim Creat Clear Calc Estimated GFR Random Glucose Lactic Acid 2.8 H* Calcium Total Bilirubin Direct Bilirubin AST ALT Alkaline Phosphatase Troponin I High Sens B-Natriuretic Peptide Total Protein Albumin Urine Color Urine Appearance Urine pH Ur Specific [place] Urine Protein Urine Glucose (UA) Urine Ketones Urine Blood Urine Nitrite Ur Leukocyte Esterase Coronavirus (PCR) Influenza Type A (PCR) Influenza Type B (PCR) RSV RNA Qual (PCR) 07/25/20 07/25/20 07/25/20 10:29 10:29 10:47 MCV MCH MCHC RDW Plt Count MPV Immature Gran % (Auto) Neut % (Auto) Lymph % (Auto) [place] % (Auto) Eos % (Auto) Baso % (Auto) Lymph # (Auto) [place] # (Auto) Eos # (Auto) Baso # (Auto) Abs Immat Gran (auto) Absolute Neuts (auto) Absolute Nucleated RBC Nucleated RBC % (auto) PT INR Anion Gap 18 Estim Creat Clear Calc 53.2 Estimated GFR 48 Random Glucose 170 H Lactic Acid Calcium 8.3 L Total Bilirubin 0.5 Direct Bilirubin < 0.2 AST 16 ALT 9 Alkaline Phosphatase 115 D Troponin I High Sens < 3.5 B-Natriuretic Peptide 126 H Total Protein 6.0 L Albumin 3.1 L Urine Color DARK YELLOW Urine Appearance HAZY Urine pH 5.5 Ur Specific [place] >= 1.030 H Urine Protein NEG Urine Glucose (UA) NEG Urine Ketones NEG Urine Blood NEG Urine Nitrite NEG Ur Leukocyte Esterase NEG Coronavirus (PCR) Influenza Type A (PCR) Influenza Type B (PCR) RSV RNA Qual (PCR) 07/25/20 11:55 MCV MCH MCHC RDW Plt Count MPV Immature Gran % (Auto) Neut % (Auto) Lymph % (Auto) [place] % (Auto) Eos % (Auto) Baso % (Auto) Lymph # (Auto) [place] # (Auto) Eos # (Auto) Baso # (Auto) Abs Immat Gran (auto) Absolute Neuts (auto) Absolute Nucleated RBC Nucleated RBC % (auto) PT INR Anion Gap Estim Creat Clear Calc Estimated GFR Random Glucose Lactic Acid Calcium Total Bilirubin Direct Bilirubin AST ALT Alkaline Phosphatase Troponin I High Sens B-Natriuretic Peptide Total Protein Albumin Urine Color Urine Appearance Urine pH Ur Specific [place] Urine Protein Urine Glucose (UA) Urine Ketones Urine Blood Urine Nitrite Ur Leukocyte Esterase Coronavirus (PCR) NEGATIVE Influenza Type A (PCR) NEGATIVE Influenza Type B (PCR) NEGATIVE RSV RNA Qual (PCR) NEGATIVE Imaging Radiologist's Impressions: Impressions Chest X-Ray 07/25/20 10:16 IMPRESSION: Limited study. No acute cardiopulmonary process. Head CT 07/25/20 10:17 IMPRESSION: Linear focus of low-attenuation in the left parietal lobe is nonspecific. This may be secondary to chronic microvascular changes or old infarct in the distribution of the left middle cerebral artery. This does not have an acute appearance. No evidence for acute intracranial hemorrhage. If symptoms persist or worsen, brain MRI should be considered. Tibia/Fibula X-Ray 07/25/20 11:31 IMPRESSION: 1. Severe tibiotalar degenerative joint changes without acute fracture. Correlate with physical exam and patient history. 2. Mild to moderate soft tissue swelling without overt acute emphysema. Assessment and Plan (1) Encephalopathy acute: Status: Acute (2) Lactic acidosis: Status: Acute (3) Sepsis: Status: Acute patient has been fully cultured including CSF with all imaging obtained will clearly need Hill catheter IV fluid initiation and quite possibly not the full 30 cc/kilogram because of a pattern of interstitial edema on his chest x-ray so I question volume status and will be covered empirically until results of CSF and cultures come back with combination of vancomycin and Zosyn and acyclovir and until zone not infection is ruled out will additionally cover with the doxycycline in addition metabolically I will check his thyroid functions and be sure he is not toxic of course I cannot rule out encephalitis on the basis of his leukemia versus lymphoma with [employer] involvement
[2020-07-25] MEDS: iohexoL 350 MG/ML 100 ML INFUS..BTL IV (15:28)
[2020-07-25 15:36] LABS: CSF Appearance Clear, Colorless; CSF Tube # 1
[2020-07-25] MEDS: Etomidate 20 MG/10 ML VIAL IVPUSH (15:36)
[2020-07-25] MEDS: Rocuronium Bromide 50 MG/5 ML VIAL IVPUSH (15:36)
[2020-07-25] MEDS: propofoL 1,000 MG/100 ML VIAL 11.04 MG IVCONT (15:36)
[2020-07-25 15:45] LABS: Glucose CSF 80 mg/dL; Total Protein CSF 35.9 mg/dL (15-45)
[2020-07-25] MEDS: 0.9 % Sodium Chloride 1,000 ML 100 ML IVCONT ×2 (15:57→17:25)
--- NOTE | 2020-07-25 15:58 | PC.NURSE ---
per dr ganesh chau initiated d/t core temp of 93.7f, target temp 96f.
[2020-07-25 16:25] LABS: Appearance CSF CLEAR; CSF Tube # 4; CSF Volume 1.5 ML
[2020-07-25 16:26] LABS: CSF Monos 0 %; CSF Other Cells % 0 %; Color CSF COLORLESS; Lymphocytes CSF 100 %; Neutrophils CSF 0 %; Red Blood Cell CSF 2 MM*3; White Blood Cell CSF 3 MM*3
[2020-07-25] MEDS: fentaNYL citrate/NS 1,000 MCG/100 ML PLAST..BAG 5 MCG IVCONT (17:21)
[2020-07-25] MEDS: 0.9 % Sodium Chloride Flush 3 ML SYRINGE IVFLUSH ×2 (17:24→17:25)
[2020-07-25] MEDS: Chlorhexidine Gluc Oral Rinse 15 ML MOUTHWASH BUCCAL ×2 (17:45→21:52)
[2020-07-25] MEDS: Doxycycline Hyclate 100 MG in 0.9 % Sodium Chloride 250 ML 166.67 MG IV (17:45)
[2020-07-25] MEDS: Enoxaparin Sodium 40 MG/0.4 ML SYRINGE SUBCUT (17:48)
[2020-07-25 18:29] LABS: Free T4 (Free Thyroxine) 1.18 ng/dL (0.71-1.85); Thyroid Stimulating Hormone 0.69 uIU/mL (0.32-4.0)
[2020-07-25 19:02] LABS: Amphetamine Screen Urine Not Detected (Not Detect); Barbiturates, Urine Not Detected (Not Detect); Benzodiazepines Screen Urine Not Detected (Not Detect); Cannabinoid Screen Urine Not Detected (Not Detect); Cocaine Screen Urine Not Detected (Not Detect); Opiate Screen Urine POSITIVE (Not Detect); Phencyclidine Screen Urine Not Detected (Not Detect)
--- NOTE | 2020-07-25 19:11 | PC.NURSE ---
1745- PT ARRIVAL TO UNIT- TITRATING UP PROPOFOL, FENTANYL GTT STARTED- NS RUNNING AT 100 MLS/HR; BP STABLE; 18 G PLACED IN LEROY; BILAT 20 G IN BOTH ACs LUNG SOUNDS COARSE RHONCHI AND DIMINISHED; VENTILATING ON PCV SETTINGS;OG TUBE IN PLACE LOW INTERMITTENT SUCTION; RESTRAINTS PLACED AT 1800; ON AIRLOSS BED; ON BEAR HUGGER FOR HYPOTHERMIA; VSS CURRENTLY; CHIKIS UPDATED; REPORT GIVEN TO ONCOMING HORTENSIA FRANCO AND MOIRA BELEN
--- NOTE | 2020-07-25 20:24 | W.PM.CCHP ---
Procedures Abscess I/D Date of Service: 07/25/20 <MOIRA Carlton - Last Filed: 07/25/20 20:49> Central Line Placement Right IJ: Central Line Comments: for venous access <MOIRA Carlton - Last Filed: 07/25/20 20:49> Consent for Procedure: Emergent-no informed consent obtained <MOIRA Carlton - Last Filed: 07/25/20 20:49> Time out performed: Yes <MOIRA Carlton - Last Filed: 07/25/20 20:49> Sterile Technique Used: Yes <MOIRA Carlton - Last Filed: 07/25/20 20:49> Patient placed on monitor/pulse ox: Yes <MOIRA Carlton - Last Filed: 07/25/20 20:49> MD prep: mask, gown and gloves <MOIRA Carlton - Last Filed: 07/25/20 20:49> Central line prep: Chlorhexidine scrub and sterile drapes applied <MOIRA Carlton - Last Filed: 07/25/20 20:49> Ultrasound used for placement: Yes <MOIRA Carlton - Last Filed: 07/25/20 20:49> Central line lumen inserted: triple <MOIRA Carlton - Last Filed: 07/25/20 20:49> Post procedure: sutured in place, good blood return, all ports aspirated, flushed, capped and sterile dressing applied <MOIRA Carlton - Last Filed: 07/25/20 20:49> Post procedure x-ray: tip of catheter in good position and no pneumothorax seen <MOIRA Carlton - Last Filed: 07/25/20 20:49> Patient tolerated procedure: well and no complications <MOIRA Carlton - Last Filed: 07/25/20 20:49>
--- NOTE | 2020-07-25 20:26 | XR_ITS ---
EXAMINATION: XR CHEST CLINICAL INFORMATION: Line placement. COMPARISON: Chest x-ray 07/25/2020, 10:[address] chest 07/25/2020 3:21 PM TECHNIQUE: Frontal portable view of the chest was obtained. 8:13 PM FINDINGS: Tubes and lines: 1. Endotracheal tube 4.3 cm above jael. 2. Right IJ catheter tip at cavoatrial junction. 3. Nasogastric tube passes below diaphragm into stomach. Catheter tip below lower margin of film. Lung volume remains low. Dense opacity remains at the left lung base similar prior studies consistent with the known consolidation and pleural effusion. No significant pulmonary vascular congestion. No pneumothorax. XR/XR chest 1V IMPRESSION: 1. Endotracheal tube 4.3 cm above jael. 2. Right IJ catheter tip at cavoatrial junction. 3. Nasogastric tube passes below diaphragm into stomach. Catheter tip below lower margin of film. 4. Persistent dense left lung base.
[2020-07-25] MEDS: Albuterol/Iprat 2.5/0.5MG 3 ML AMPUL.NEB INHALE (20:35)
[2020-07-25 20:36] LABS: Appearance CSF CLEAR
[2020-07-25 20:37] LABS: CSF Tube # 3; Color CSF COLORLESS
[2020-07-25] MEDS: Famotidine/PF 20 MG/2 ML VIAL IVPUSH (21:52)
[2020-07-25] MEDS: propofoL 1,000 MG/100 ML VIAL 16.56 MG IVCONT (22:25)
[2020-07-25 22:59] LABS: pH VBG 7.38 (7.32-7.43)
[2020-07-25 23:00] LABS: Base Excess VBG -3.6 mmol/L; HCO3 VBG 21 mmol/L; Oxygen Saturation VBG 82.8 %; PCO2 VBG 36 mmhg; PO2 VBG 43 mmhg
[2020-07-25 23:07] LABS: Ammonia 32 umol/L (13-55)
[2020-07-26] VITALS (28 sets, daily range): BP systolic 88–129; BP diastolic 33–73; PULSE 68–107; RESP 20–27; TEMP 36–37.3; O2SAT 40–100; BMI 26.2
[2020-07-26 00:27] LABS: Folate 6.5 ng/mL (> or = 4.0); Vitamin B12 723 pg/mL (200-900)
[2020-07-26] MEDS: propofoL 1,000 MG/100 ML VIAL 22.08 MG IVCONT ×3 (01:26→22:08)
[2020-07-26] MEDS: 0.9 % Sodium Chloride 1,000 ML 100 ML IVCONT ×4 (01:31→20:01)
[2020-07-26 06:02] LABS: Basophils Absolute Auto 0.1 X10*3/uL (0.0-0.2); Basophils Percent Auto 0.2 % (0-2); Eosinophils Percent Auto 0.2 % (0-4); Hematocrit 32.6 % (42-52); Hemoglobin 10.5 g/dl (14.0-18.0); Imm Gran Abs Auto 0.13 X10*3/uL (0.00-0.03); Imm Gran Pct Auto 0.5 % (0.0-0.4); Lymphocytes Absolute Auto 1.1 X10*3/uL (1.2-4.9); Lymphocytes Percent Auto 4.2 % (20-40); MANUAL DIFF FLAG SCAN; Mean Corpuscular HGB Conc 32.2 g/dl (31.0-36.0); Mean Corpuscular Hemoglobin 27.9 pg (27.0-33.0); Mean Corpuscular Volume 86.7 fL (80-98); Mean Platelet Volume 10.1 fL (9.4-12.4); Monocytes Absolute Auto 2.9 X10*3/uL (0.1-1.2); Monocytes Percent Auto 11.4 % (2-11); Neutrophils Absolute Auto 21.2 X10*3/uL (2.0-8.3); Neutrophils Percent Auto 83.5 % (45-73); Platelet Count 266 X10*3/uL (160-400); Red Blood Count 3.76 X10*6/uL (4.60-5.80); Red Cell Distribution Width 16.8 % (11.0-16.0); SCAN SMEAR FLAG 1; White Blood Count 25.4 X10*3/uL (4.8-10.8)
[2020-07-26 06:16] LABS: Base Excess VBG -6.1 mmol/L; HCO3 VBG 18 mmol/L; PCO2 VBG 33 mmhg; PO2 VBG 53 mmhg; pH VBG 7.37 (7.32-7.43)
[2020-07-26] MEDS: propofoL 1,000 MG/100 ML VIAL 11.04 MG IVCONT (06:21)
[2020-07-26 06:25] LABS: Alanine Aminotransferase 8 U/L (0-40); Albumin Level 2.5 g/dL (3.5-5.0); Alkaline Phosphatase 95 U/L (39-117); Anion Gap 12 (12-20); Aspartate Amino Transferase 12 U/L (5-37); Bilirubin Total 0.4 mg/dL (0.0-1.0); Blood Urea Nitrogen 31 mg/dL (9-16); Calcium 7.6 mg/dL (8.4-10.2); Carbon Dioxide 21 mmol/L (22-29); Chloride 109 mmol/L (96-108); Creatinine Clr Calc Pharmacy 64.1; Estimated Glomerular Filt Rate 59; Glucose Random 143 mg/dL (60-115); Magnesium 1.8 mg/dL (1.6-2.6); Potassium 4.4 mmol/l (3.3-5.1); Sodium 138 mmol/L (135-145); Total Protein 4.8 g/dL (6.5-8.0)
[2020-07-26 06:29] LABS: SLIDE REVIEW VERIFIED
[2020-07-26 06:30] LABS: B Type Natriuretic Peptide 128 pg/mL (<100)
[2020-07-26] MEDS: fentaNYL citrate/NS 1,000 MCG/100 ML PLAST..BAG 4 MCG IVCONT (07:30)
[2020-07-26] MEDS: Albuterol/Iprat 2.5/0.5MG 3 ML AMPUL.NEB INHALE ×3 (08:47→20:03)
[2020-07-26] MEDS: Piperacillin Sodium/Tazobactam 4.5 GM in 0.9 % Sodium Chloride 100 ML IV ×3 (09:00→20:00)
[2020-07-26] MEDS: vancomycin HCL 1,000 MG in 0.9 % Sodium Chloride 250 ML 270 MG IV (09:00)
[2020-07-26] MEDS: Famotidine/PF 20 MG/2 ML VIAL IVPUSH ×2 (10:00→20:00)
[2020-07-26] MEDS: Levothyroxine Sodium 100 MCG VIAL 50 MCG IVPUSH (10:00)
[2020-07-26] MEDS: 0.9 % Sodium Chloride Flush 3 ML SYRINGE IVFLUSH ×4 (10:17→17:25)
[2020-07-26] MEDS: Chlorhexidine Gluc Oral Rinse 15 ML MOUTHWASH BUCCAL ×3 (10:17→20:00)
[2020-07-26] MEDS: Thiamine HCL 200 MG/2 ML VIAL 100 MG IVPUSH (10:18)
[2020-07-26] MEDS: propofoL 1,000 MG/100 ML VIAL 16.56 MG IVCONT (12:50)
--- NOTE | 2020-07-26 14:22 | P.PNCC_ITS ---
Subjective Subjective Date of Service: 07/26/20 Interval History: 70-year-old male with schizoaffective disorder but background history for approximately 5 years of CLL as well as non-Hodgkin's lymphoma and recently has been on single therapy with Imbruvia was well with normal mental status up until yesterday morning then was noticed to be confused and brought to the emergency room where he was in clear-cut respiratory distress progressively hypoxic marked agitated delirium with rapid deterioration requiring intubation and then following CT scan of his head sample of his CS F was drawn showing normal protein and glucose and only 3 white cells so we were not dealing with an infectious encephalitis or meningitis and very unlikely that we would dealing with RADIOLOGY SERVICES MANAGER involvement from his underlying lymphatic diseases but clearly I had concerns at least of be and possibly B and T-cell related immunosuppression between his disease and the chemotherapy and the patient was initially covered with vancomycin and Zosyn and when I saw the purulence sputum and the significant polys I elected to cover him for fungal invasion including in any of the above species namely Veronica Aspergillus or cryptococcus so I used voriconazole blood in sputum seem to have Gram-positive cocci but differentiation yet between strep and staph is difficult to make he is a replaced hypothyroid and his preliminary thyroid functions appear to be normal he is chronically on oxycodone for pain as well as a benzodiazepine for anxiety Physical Exam Vital Signs: Vital Signs: Last Vital Signs Temp 97.2 F 07/26/20 14:00 Pulse 84 07/26/20 14:00 Resp 23 H 07/26/20 14:00 BP 95/53 L 07/26/20 14:00 Pulse Ox 100 07/26/20 14:00 Body Mass Index 26.2 Const: Other: much more comfortable and synchronized on pressure control on the ventilator today and well sedated skin just shows that left lower extremity chronic lymphedema with some bullous changes in the anterior compartment some of which opened with shallow ulceration and of course questionable cellulitis no acrocyanosis no neck vein distension and has good bilateral carotid upstrokes with no bruits and cardiac exam with a normal S1 and normal S2 chest with coarse breath sounds bilaterally related to ventilator abdomen benign and he seems to be tolerating his initial feedings Objective Data Labs CBC & Chem 7: 07/26/20 05:45 07/26/20 05:45 Labs: Laboratory Results - last 24 hr 07/25/20 07/25/20 07/25/20 10:29 10:29 15:07 WBC RBC Hgb Hct MCV MCH MCHC RDW Plt Count MPV Immature Gran % (Auto) Neut % (Auto) Lymph % (Auto) [place] % (Auto) Eos % (Auto) Baso % (Auto) Lymph # (Auto) [place] # (Auto) Eos # (Auto) Baso # (Auto) Abs Immat Gran (auto) Absolute Neuts (auto) Absolute Nucleated RBC Nucleated RBC % (auto) Smear Tech's Comments VBG pH VBG pCO2 VBG pO2 VBG HCO3 VBG O2 Saturation VBG Base Excess Sodium Potassium Chloride Carbon Dioxide Anion Gap BUN Creatinine Estim Creat Clear Calc Estimated GFR Random Glucose Lactic Acid Fup @ 2Hr Calcium Phosphorus Magnesium Total Bilirubin AST ALT Alkaline Phosphatase Ammonia Troponin I High Sens < 3.5 B-Natriuretic Peptide 126 H Total Protein Albumin Vitamin B12 Folate TSH 0.69 Free T4 1.18 CSF Tube Number 1 CSF Volume CSF Appearance CSF Color CSF WBC CSF RBC CSF Neutrophils CSF Lymphocytes CSF Monocytes % CSF Other Cells % CSF Appearance (b) Clear, Colorless CSF Glucose 80 CSF Total Protein 35.9 CSF Mening/Enceph PCR Urine Opiates Screen Ur Barbiturates Screen Ur Phencyclidine Scrn Ur Amphetamines Screen U Benzodiazepines Scrn Urine Cocaine Screen U Marijuana (THC) Screen 07/25/20 07/25/20 07/25/20 15:07 15:07 15:41 WBC RBC Hgb Hct MCV MCH MCHC RDW Plt Count MPV Immature Gran % (Auto) Neut % (Auto) Lymph % (Auto) [place] % (Auto) Eos % (Auto) Baso % (Auto) Lymph # (Auto) [place] # (Auto) Eos # (Auto) Baso # (Auto) Abs Immat Gran (auto) Absolute Neuts (auto) Absolute Nucleated RBC Nucleated RBC % (auto) Smear Tech's Comments VBG pH VBG pCO2 VBG pO2 VBG HCO3 VBG O2 Saturation VBG Base Excess Sodium Potassium Chloride Carbon Dioxide Anion Gap BUN Creatinine Estim Creat Clear Calc Estimated GFR Random Glucose Lactic Acid Fup @ 2Hr 2.0 Calcium Phosphorus Magnesium Total Bilirubin AST ALT Alkaline Phosphatase Ammonia Troponin I High Sens B-Natriuretic Peptide Total Protein Albumin Vitamin B12 Folate TSH Free T4 CSF Tube Number 3 4 CSF Volume 2.0 1.5 CSF Appearance CLEAR CLEAR CSF Color COLORLESS COLORLESS CSF WBC TNP 3 CSF RBC TNP 2 CSF Neutrophils 0 CSF Lymphocytes 100 CSF Monocytes % 0 CSF Other Cells % 0 CSF Appearance (b) CSF Glucose CSF Total Protein CSF Mening/Enceph PCR SEE NOTE Urine Opiates Screen Ur Barbiturates Screen Ur Phencyclidine Scrn Ur Amphetamines Screen U Benzodiazepines Scrn Urine Cocaine Screen U Marijuana (THC) Screen 07/25/20 07/25/20 07/25/20 17:48 22:44 22:44 WBC RBC Hgb Hct MCV MCH MCHC RDW Plt Count MPV Immature Gran % (Auto) Neut % (Auto) Lymph % (Auto) [place] % (Auto) Eos % (Auto) Baso % (Auto) Lymph # (Auto) [place] # (Auto) Eos # (Auto) Baso # (Auto) Abs Immat Gran (auto) Absolute Neuts (auto) Absolute Nucleated RBC Nucleated RBC % (auto) Smear Tech's Comments VBG pH VBG pCO2 VBG pO2 VBG HCO3 VBG O2 Saturation VBG Base Excess Sodium Potassium Chloride Carbon Dioxide Anion Gap BUN Creatinine Estim Creat Clear Calc Estimated GFR Random Glucose Lactic Acid Fup @ 2Hr Calcium Phosphorus Magnesium Total Bilirubin AST ALT Alkaline Phosphatase Ammonia 32 Troponin I High Sens B-Natriuretic Peptide Total Protein Albumin Vitamin B12 723 Folate 6.5 TSH Free T4 CSF Tube Number CSF Volume CSF Appearance CSF Color CSF WBC CSF RBC CSF Neutrophils CSF Lymphocytes CSF Monocytes % CSF Other Cells % CSF Appearance (b) CSF Glucose CSF Total Protein CSF Mening/Enceph PCR Urine Opiates Screen POSITIVE H Ur Barbiturates Screen Not Detected Ur Phencyclidine Scrn Not Detected Ur Amphetamines Screen Not Detected U Benzodiazepines Scrn Not Detected Urine Cocaine Screen Not Detected U Marijuana (THC) Screen Not Detected 07/25/20 07/26/20 07/26/20 22:44 05:45 05:45 WBC 25.4 H RBC 3.76 L Hgb 10.5 L Hct 32.6 L MCV 86.7 MCH 27.9 MCHC 32.2 RDW 16.8 H Plt Count 266 MPV 10.1 Immature Gran % (Auto) 0.5 H Neut % (Auto) 83.5 H Lymph % (Auto) 4.2 L [place] % (Auto) 11.4 H Eos % (Auto) 0.2 Baso % (Auto) 0.2 Lymph # (Auto) 1.1 L [place] # (Auto) 2.9 H Eos # (Auto) 0.0 Baso # (Auto) 0.1 Abs Immat Gran (auto) 0.13 H Absolute Neuts (auto) 21.2 H Absolute Nucleated RBC 0.000 Nucleated RBC % (auto) 0.0 Smear Tech's Comments VERIFIED VBG pH 7.38 VBG pCO2 36 VBG pO2 43 VBG HCO3 21 VBG O2 Saturation 82.8 VBG Base Excess -3.6 Sodium 138 Potassium 4.4 Chloride 109 H Carbon Dioxide 21 L Anion Gap 12 BUN 31 H Creatinine 1.21 Estim Creat Clear Calc 64.1 Estimated GFR 59 Random Glucose 143 H Lactic Acid Fup @ 2Hr Calcium 7.6 L D Phosphorus 4.0 Magnesium 1.8 Total Bilirubin 0.4 AST 12 ALT 8 Alkaline Phosphatase 95 Ammonia Troponin I High Sens B-Natriuretic Peptide Total Protein 4.8 L Albumin 2.5 L Vitamin B12 Folate TSH Free T4 CSF Tube Number CSF Volume CSF Appearance CSF Color CSF WBC CSF RBC CSF Neutrophils CSF Lymphocytes CSF Monocytes % CSF Other Cells % CSF Appearance (b) CSF Glucose CSF Total Protein CSF Mening/Enceph PCR Urine Opiates Screen Ur Barbiturates Screen Ur Phencyclidine Scrn Ur Amphetamines Screen U Benzodiazepines Scrn Urine Cocaine Screen U Marijuana (THC) Screen 07/26/20 07/26/20 05:45 05:45 WBC RBC Hgb Hct MCV MCH MCHC RDW Plt Count MPV Immature Gran % (Auto) Neut % (Auto) Lymph % (Auto) [place] % (Auto) Eos % (Auto) Baso % (Auto) Lymph # (Auto) [place] # (Auto) Eos # (Auto) Baso # (Auto) Abs Immat Gran (auto) Absolute Neuts (auto) Absolute Nucleated RBC Nucleated RBC % (auto) Smear Tech's Comments VBG pH 7.37 VBG pCO2 33 VBG pO2 53 VBG HCO3 18 VBG O2 Saturation Not Reportable VBG Base Excess -6.1 Sodium Potassium Chloride Carbon Dioxide Anion Gap BUN Creatinine Estim Creat Clear Calc Estimated GFR Random Glucose Lactic Acid Fup @ 2Hr Calcium Phosphorus Magnesium Total Bilirubin AST ALT Alkaline Phosphatase Ammonia Troponin I High Sens B-Natriuretic Peptide 128 H Total Protein Albumin Vitamin B12 Folate TSH Free T4 CSF Tube Number CSF Volume CSF Appearance CSF Color CSF WBC CSF RBC CSF Neutrophils CSF Lymphocytes CSF Monocytes % CSF Other Cells % CSF Appearance (b) CSF Glucose CSF Total Protein CSF Mening/Enceph PCR Urine Opiates Screen Ur Barbiturates Screen Ur Phencyclidine Scrn Ur Amphetamines Screen U Benzodiazepines Scrn Urine Cocaine Screen U Marijuana (THC) Screen Microbiology Microbiology Results: Microbiology 07/25/20 10:59 Blood - Venous Blood Culture - Preliminary No growth after 24 hours. 07/25/20 17:48 Urine Catheterized - Hill Catheter Urine Culture - Preliminary No growth to date. 07/25/20 10:28 Blood - Venous Blood Culture - Preliminary 07/25/20 17:48 Sputum - Suctioned Gram Stain - Final 07/25/20 17:48 Sputum - Suctioned Sputum Culture - Preliminary Culture in progress. 07/25/20 15:07 Cerebrospinal Fluid Gram Stain - Final 07/25/20 15:07 Cerebrospinal Fluid CSF Examination - Final 07/25/20 15:07 Cerebrospinal Fluid Gross Specimen Examination - Final 07/25/20 15:07 Cerebrospinal Fluid CSF Culture - Preliminary No growth after 1 day Progress Note: A&P Assessment and plan (1) Pneumonia: Status: Acute (2) Sepsis: Status: Acute (3) Acute metabolic encephalopathy: Status: Acute (4) Acute alteration in mental status: Status: Acute (5) Sepsis: Status: Acute (6) Lactic acidosis: Status: Acute (7) Encephalopathy acute: Status: Acute (8) Cellulitis and abscess of left leg: Status: Acute (9) TEN (toxic epidermal necrolysis): Status: Acute Assessment and Plan: so antibiotics to include vancomycin and Zosyn and probably Levaquin in case to cover atypicals which will cover both respiratory tract as well as cellulitis but I am covering with voriconazole in case there is an invasive fungal infection toxic encephalopathy currently controlled Time Spent With Patient Time: Total time spent is greater than 50% in coordination of care (as documented) at patient's floor/unit and/or counseling patient: Total time spent with greater than 50% in coordination of care (as documented) at patient's floor/unit and/or counseling patient:: 45
--- NOTE | 2020-07-26 14:27 | P.CNID_ITS ---
History of Present Illness Data of Consult Service Date: 07/26/20 Requesting physician: Aaron Burr Primary Care Provider: MD CIARA Bernstein Reason for consult: hypothermia Patient arrives from Rehab with change in mental status He was found to be hypothermic to 96.8 and given Genoveva hugger He also had CT scan head rather unremarkable and LP done which is clear and culture negative No one else is ill He has chronic lymphedema left leg and ulcer but no acute appearance He is vented in ICU and getting tube feeds He has dense left base pneumonia Review of Systems Review of Systems: Yes unobtainable due to endotracheal tube Neurologic: Reports Abnormal speech present and Reports confusion Psychiatric: Psychiatric: Reports confusion PMFSH Past Medical History Medical History Abnormality of gait and mobility Anxiety Cellulitis of left leg Chronic kidney disease (CKD) 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 Dysphagia Gout Hypertension Hypothyroidism Lymphedema Major depression, recurrent Mesenteric lymphadenitis Mood disorder Muscle weakness (generalized) Non Hodgkin's lymphoma Non-Hodgkin lymphoma Schizoaffective disorder, bipolar type Social History Social History Household Members: Unknown / Unable to assess Housing: Retirement Smoking Status: Unknown if ever smoked Use of substances other than those prescribed or required for medical reasons: Unable to respond Currently Displaying Signs/Symptoms of Drug Intoxication Withdrawal: No Advance Directives: No Advance Directives Information Provided: No Advance Directives on File: No Do you have thoughts of harming others: None Do you have a plan to hurt others: No Plan Recently lost weight without trying: Unsure service: No Current occupational status: employed Meds Allergies Allergy/AdvReac Type Severity Reaction Status Date / Time prochlorperazine Allergy Unknown unknown Verified 07/25/20 10:15 Home Medications Medication Instructions Recorded Confirmed Type acetaminophen [Tylenol] 650 mg PO Q6H PRN 07/25/20 07/25/20 History betamethasone dipropionate 1 applic TOPICAL BID 07/25/20 07/25/20 History bisacodyl [Dulcolax (bisacodyl)] 10 mg VA DAILY PRN 07/25/20 07/25/20 History escitalopram oxalate 5 mg PO DAILY 07/25/20 07/25/20 History gabapentin 100 mg PO TID 07/25/20 07/25/20 History levothyroxine 100 mcg PO DAILY 07/25/20 07/25/20 History magnesium hydroxide [Milk of 400 mg PO DAILY PRN 07/25/20 07/25/20 History Magnesia] morphine 30 mg PO Q12H 07/25/20 07/25/20 History oxycodone 10 mg PO Q4H PRN 07/25/20 07/25/20 History spironolactone 25 mg PO DAILY 07/25/20 07/25/20 History trazodone 50 mg PO BEDTIME 07/25/20 07/25/20 History Physical Exam Vital Signs: Vital Signs: Last Vital Signs Temp 97.2 F 07/26/20 14:00 Pulse 84 07/26/20 14:00 Resp 23 H 07/26/20 14:00 BP 95/53 L 07/26/20 14:00 Pulse Ox 100 07/26/20 14:00 Body Mass Index 26.2 Const: General: confusion Orientation/consciousness: confusion HENMT: Head: Yes normal to inspection Mouth: Normal oral and palatal mucosa present and lip normal Eyes: General: appearance normal, both eyes and all related structures Resp: Effort & Inspection: normal respiratory effort Cardio: Rate: regular rate Rhythm: regular rhythm GI: Inspection: Yes normal to inspection Palpation (GI): Soft to palpation and nontender Back/Spine/Pelvis: Cervical Spine: normal cervical lordosis Skin: General skin exam: no rashes or lesions noted Neuro: General: confusion Speech: Abnormal speech present Extrem: General: Yes normal to inspection Upper/lower leg/hip images: 1. increased swelling leg and 2 x3 cm ulcer Assessment and Plan (1) Pneumonia: Qualifiers: Laterality: bilateral Lung location: lower lobe of lung Pneumonia type: due to unspecified organism Qualified Code(s): J18.9 - Pneumonia, unspecified organism Problem details: pneumonia concern over Legionella Concern over strep Status: Acute Check Legionella,nares MRSA Check HIV Cover possible aspiration and atypicals with Doxycycline and Zosyn (2) Sepsis: Qualifiers: Sepsis acute organ dysfunction status: with acute organ dysfunction Sepsis type: sepsis due to unspecified organism Severe sepsis acute organ dysfunction type: encephalopathy Severe sepsis shock status: without septic shock Qualified Code(s): A41.9 - Sepsis, unspecified organism; R65.20 - Severe sepsis without septic shock; G93.40 - Encephalopathy, unspecified Status: Acute (3) Acute metabolic encephalopathy: Status: Acute (4) Cellulitis and abscess of left leg: Status: Acute Observe No acute issues Results Labs CBC & Chem 7: 07/27/20 04:50 07/27/20 04:50 Labs: Short CBC 07/26/20 Range/Units 05:45 WBC 25.4 H (4.8-10.8) X10*3/uL Hgb 10.5 L (14.0-18.0) g/dl Hct 32.6 L (42-52) % Plt Count 266 (160-400) X10*3/uL BMP 07/26/20 05:45 Sodium 138 Potassium 4.4 Chloride 109 H Carbon Dioxide 21 L BUN 31 H Creatinine 1.21 Calcium 7.6 L D Liver Function 07/26/20 Range/Units 05:45 Total Bilirubin 0.4 (0.0-1.0) mg/dL AST 12 (5-37) U/L ALT 8 (0-40) U/L Alkaline Phosphatase 95 (39-117) U/L Albumin 2.5 L (3.5-5.0) g/dL Microbiology Microbiology Results: Microbiology 07/25/20 10:59 Blood - Venous Blood Culture - Preliminary No growth after 24 hours. 07/25/20 17:48 Urine Catheterized - Hill Catheter Urine Culture - Preliminary No growth to date. 07/25/20 10:28 Blood - Venous Blood Culture - Preliminary 07/25/20 17:48 Sputum - Suctioned Gram Stain - Final 07/25/20 17:48 Sputum - Suctioned Sputum Culture - Preliminary Culture in progress. 07/25/20 15:07 Cerebrospinal Fluid Gram Stain - Final 07/25/20 15:07 Cerebrospinal Fluid CSF Examination - Final 07/25/20 15:07 Cerebrospinal Fluid Gross Specimen Examination - Final 07/25/20 15:07 Cerebrospinal Fluid CSF Culture - Preliminary No growth after 1 day
--- NOTE | 2020-07-26 14:29 | MHC.CM.PN ---
Pt presently intubated in ICU with 2 lobe PNA, sepsis, encephalopathy: Call placed to pt's HCP/spouse, Micki. Per Micki, pt had been at [facility] for STR following a lower extremity infection requiring IV ATB and PT. Pt is also immunocompromised and receiving medication for non Hodgkins lymphoma. 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 He is independent at baseline without services. Micki would like pt to return to [facility] once he is medically stable. Referral placed - will await acceptance. IMM explained to Micki who acknowledged: copy to be mailed per her request. CM will follow for d/c planning needs
[2020-07-26] MEDS: Doxycycline Hyclate 100 MG in 0.9 % Sodium Chloride 250 ML 166.67 MG IV (16:00)
[2020-07-26] MEDS: Enoxaparin Sodium 40 MG/0.4 ML SYRINGE SUBCUT (16:11)
--- NOTE | 2020-07-26 19:46 | PC.NURSE ---
ASSUMED CARE AT 0700. PATIENT SEDATE ON 10 PROPOFOL AND 40 FENTANYL INITIALLY. PATIENT WAS VENTILATING WELL AND RESTING EASILY WHEN AT REST, BUT WITH NURSING CARE OR SUCTIONING, PATIENT WOULD START, AND BECOME RESTLESS, AND PROPOFOL HAS BEEN UPTITIRATED TO 40 AND FENTANYL TO 50; +COUGH AND +GAG; PUPILS REACTIVE BUT SLUGGISH AT 3 MM BILATERALLY. CONTINUES INTUBATED WITH #8 ETT 22 CHANNING WHEN VIEWED FROM MEDIAL POSITION IN MOUTH; AC/PC SETTINGS AC 20; PC 12; PEEP 5; FIO2 TITRATED FROM 40% TO 30% TODAY. PATIENT WITH MINUTE VOUMES ABOUT 9-10; TV ABOUT 500'S; ETCO2 ABOUT 29; INLINE SECRETIONS MINIMAL GREENISH AND CREAMY; SAME MODERATE ORAL SECRETIONS. PATIENT LS DIMINISHED THROUGHOUT. PATIENT HAD BEEN ON LOW INTERMITTENT SUCTION TO OGT; 200 CCS FROM OVERNIGHT; NO SECRETIONS THIS MORNING; DISCUSSED WITH MD, AND STARTED ON JEVITY AT 20 CCS /HOUR. PATIENT WITH URINE OUTPUTS ABOUT 20-30 CC PER HOUR CLOUDY YELLOW URINE. NO BM THIS SHIFT. SOME LOW BLOOD PRESSURES: 87/50'S; NEW ORDER FOR VASOPRESSING CONTINUOUS AT 0.04. PATIENT WITH VERY EDEMATOUS LEFT LOWER LEG +4 PITTING, FAINT PEDAL PULSES; CHRONIC CONDITION RELATED TO LYMPHOMA PER PATIENT'S WHO WAS UPDATED TODAY; PLAN TO HAVE PT WORK WITH PATIENT TO ACCOMODATE SIMILAR TX TO AT HOME; ELEVATED FOR TIME BEING. PATIENT HAS SOME OPEN AREAS: SKIN TEARS TO DORSAL LEFT HAND X3 WITH D&i FOAM DRESSINGS; ALSO VENOUS STASIS ULCER TO MEDIAL LEFT DISTAL LEG WITH SOME SEROUS EDUDATE, EXAMINED BY ID SPECIALIST MD TODAY. PATIENT ON VANCOMYCIN, ZOSYN, AND DOXYCYCLINE, HAD 1/2 SETS BLOOD CULTURES COME BACK WITH GRAM POSITIVE COCCI TODAY, MD AWARE.
[2020-07-27] VITALS (26 sets, daily range): BP systolic 99–158; BP diastolic 52–90; PULSE 61–108; RESP 18–27; TEMP 36.1–37; O2SAT 95–100; BMI 28.3
[2020-07-27] MEDS: propofoL 1,000 MG/100 ML VIAL 27.6 MG IVCONT ×5 (01:14→23:07)
[2020-07-27] MEDS: Piperacillin Sodium/Tazobactam 4.5 GM in 0.9 % Sodium Chloride 100 ML IV ×4 (02:06→20:03)
[2020-07-27] MEDS: Doxycycline Hyclate 100 MG in 0.9 % Sodium Chloride 250 ML 166.67 MG IV ×2 (02:57→15:43)
[2020-07-27] MEDS: fentaNYL citrate/NS 1,000 MCG/100 ML PLAST..BAG 5 MCG IVCONT (04:57)
[2020-07-27 05:19] LABS: Basophils Absolute Auto 0.1 X10*3/uL (0.0-0.2); Basophils Percent Auto 0.4 % (0-2); Hematocrit 28.6 % (42-52); Imm Gran Abs Auto 0.12 X10*3/uL (0.00-0.03); Imm Gran Pct Auto 0.6 % (0.0-0.4); Lymphocytes Absolute Auto 1.6 X10*3/uL (1.2-4.9); Lymphocytes Percent Auto 7.7 % (20-40); MANUAL DIFF FLAG SCAN; Mean Corpuscular HGB Conc 31.5 g/dl (31.0-36.0); Mean Corpuscular Hemoglobin 27.9 pg (27.0-33.0); Mean Corpuscular Volume 88.5 fL (80-98); Mean Platelet Volume 10.3 fL (9.4-12.4); Monocytes Absolute Auto 2.2 X10*3/uL (0.1-1.2); Monocytes Percent Auto 10.5 % (2-11); Neutrophils Absolute Auto 15.7 X10*3/uL (2.0-8.3); Neutrophils Percent Auto 75.8 % (45-73); Platelet Count 232 X10*3/uL (160-400); Red Blood Count 3.23 X10*6/uL (4.60-5.80); Red Cell Distribution Width 17.1 % (11.0-16.0); SCAN SMEAR FLAG 1; White Blood Count 20.7 X10*3/uL (4.8-10.8)
[2020-07-27] MEDS: 0.9 % Sodium Chloride 1,000 ML 100 ML IVCONT ×2 (05:25→15:34)
[2020-07-27 05:30] LABS: PCO2 VBG 35 mmhg; PO2 VBG 49 mmhg; pH VBG 7.35 (7.32-7.43)
[2020-07-27 05:31] LABS: HCO3 VBG 19 mmol/L
[2020-07-27 05:36] LABS: SLIDE REVIEW VERIFIED
[2020-07-27 05:56] LABS: B Type Natriuretic Peptide 157 pg/mL (<100)
[2020-07-27 06:03] LABS: Anion Gap 13 (12-20); Blood Urea Nitrogen 35 mg/dL (9-16); Calcium 7.6 mg/dL (8.4-10.2); Carbon Dioxide 19 mmol/L (22-29); Chloride 112 mmol/L (96-108); Creatinine Clr Calc Pharmacy 62.1; Estimated Glomerular Filt Rate 57; Glucose Random 152 mg/dL (60-115); Magnesium 1.9 mg/dL (1.6-2.6); Phosphorus 3.7 mg/dL (2.7-4.5); Potassium 4.3 mmol/l (3.3-5.1); Sodium 140 mmol/L (135-145)
[2020-07-27] MEDS: 0.9 % Sodium Chloride Flush 3 ML SYRINGE IVFLUSH ×5 (07:48→18:01)
[2020-07-27] MEDS: Albuterol/Iprat 2.5/0.5MG 3 ML AMPUL.NEB INHALE ×3 (07:51→21:01)
[2020-07-27] MEDS: Chlorhexidine Gluc Oral Rinse 15 ML MOUTHWASH BUCCAL ×3 (08:14→22:13)
[2020-07-27] MEDS: Thiamine HCL 200 MG/2 ML VIAL 100 MG IVPUSH (08:14)
[2020-07-27] MEDS: Levothyroxine Sodium 100 MCG VIAL 50 MCG IVPUSH (08:14)
[2020-07-27] MEDS: Famotidine/PF 20 MG/2 ML VIAL IVPUSH ×2 (08:15→22:13)
[2020-07-27] MEDS: propofoL 1,000 MG/100 ML VIAL 5.52 MG IVCONT (10:04)
[2020-07-27 12:46] LABS: MRSA Nasal PCR NEGATIVE (Negative); SA Nasal PCR NEGATIVE (Negative)
--- NOTE | 2020-07-27 14:39 | MHC.CM.PN ---
Pt continues on ventilatory support in ICU: seen by ID: JUSTICE changed: pt will attempt reduction in FiO2. D/C plan is for a return to [facility].
--- NOTE | 2020-07-27 16:09 | P.PNCC_ITS ---
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[employer] and became acutely altered mid mentally and rapidly progressive with rapidly progressive respiratory difficulty and presented with acute hypoxemic respiratory failure with severe agitated delirium and we intubated in the emergency room an emergency head scan which was negative and we did an emergency CSF tap and no significant protein glucose was normal no significant cells but the interesting thing is he had a background of over 5 years of non-Hodgkin's lymphoma as well as CLL and he had been on a single chemo agent and was lymphopenic on his differential and may very well have be and or T-cell deficiency so I covered him with voriconazole in addition to vancomycin pending culture results and Zosyn and we considered atypical such as Legionella much improved on the ventilator with ever diminishing FiO2 requirement and he woke up appropriately with normal cognitive function today and gave him a pressure support trial but respiratory rate exceeded 30 and he had diminishing tidal volumes so he was beginning to fail and he was again sedated and placed back on pressure control Physical Exam Vital Signs: Vital Signs: Last Vital Signs Temp 98.6 F 07/27/20 14:00 Pulse 87 07/27/20 15:15 Resp 24 H 07/27/20 14:00 BP 122/68 07/27/20 14:00 Pulse Ox 100 07/27/20 14:00 Body Mass Index 28.3 Const: Other: awoke with cognitive function but failed pressure support trial neurologically nonfocal and intact follow commands scan just left lower extremity with with some bullous changes underneath shallow ulceration and significant chronic lymphedema of the left lower extremity and questionable cellulitis abdomen benign and tolerating feedings soft nontender with good bowel sounds cardiac exam by bedside echo shows globally normal systolic wall motion of left and right ventricle with no primary valve or pericardial disease chest without accessory muscle use no distress no adventitious sounds Objective Data Labs CBC & Chem 7: 07/27/20 04:50 07/27/20 04:50 Labs: Laboratory Results - last 24 hr 07/26/20 07/27/20 07/27/20 17:20 04:50 04:50 WBC 20.7 H RBC 3.23 L Hgb 9.0 L Hct 28.6 L MCV 88.5 MCH 27.9 MCHC 31.5 RDW 17.1 H Plt Count 232 MPV 10.3 Immature Gran % (Auto) 0.6 H Neut % (Auto) 75.8 H Lymph % (Auto) 7.7 L [place] % (Auto) 10.5 Eos % (Auto) 5.0 H Baso % (Auto) 0.4 Lymph # (Auto) 1.6 [place] # (Auto) 2.2 H Eos # (Auto) 1.0 H Baso # (Auto) 0.1 Abs Immat Gran (auto) 0.12 H Absolute Neuts (auto) 15.7 H Absolute Nucleated RBC 0.000 Nucleated RBC % (auto) 0.0 Smear Tech's Comments VERIFIED VBG pH VBG pCO2 VBG pO2 VBG HCO3 VBG O2 Saturation VBG Base Excess Sodium 140 Potassium 4.3 Chloride 112 H Carbon Dioxide 19 L Anion Gap 13 BUN 35 H Creatinine 1.25 Estim Creat Clear Calc 62.1 Estimated GFR 57 Random Glucose 152 H Calcium 7.6 L Phosphorus 3.7 Magnesium 1.9 B-Natriuretic Peptide Nasal Screen MRSA (PCR) NEGATIVE Nasal S. aureus Screen NEGATIVE Nasal MRSA/S.aureus Interp SEE NOTE 07/27/20 07/27/20 04:50 04:50 WBC RBC Hgb Hct MCV MCH MCHC RDW Plt Count MPV Immature Gran % (Auto) Neut % (Auto) Lymph % (Auto) [place] % (Auto) Eos % (Auto) Baso % (Auto) Lymph # (Auto) [place] # (Auto) Eos # (Auto) Baso # (Auto) Abs Immat Gran (auto) Absolute Neuts (auto) Absolute Nucleated RBC Nucleated RBC % (auto) Smear Tech's Comments VBG pH 7.35 VBG pCO2 35 VBG pO2 49 VBG HCO3 19 VBG O2 Saturation 86.0 VBG Base Excess -6.0 Sodium Potassium Chloride Carbon Dioxide Anion Gap BUN Creatinine Estim Creat Clear Calc Estimated GFR Random Glucose Calcium Phosphorus Magnesium B-Natriuretic Peptide 157 H Nasal Screen MRSA (PCR) Nasal S. aureus Screen Nasal MRSA/S.aureus Interp Microbiology Microbiology Results: Microbiology 07/25/20 10:59 Blood - Venous Blood Culture - Preliminary No growth after 48 hours. 07/25/20 17:48 Sputum - Suctioned Gram Stain - Final 07/25/20 17:48 Sputum - Suctioned Sputum Culture - Final 07/25/20 15:07 Cerebrospinal Fluid Gram Stain - Final 07/25/20 15:07 Cerebrospinal Fluid CSF Examination - Final 07/25/20 15:07 Cerebrospinal Fluid Gross Specimen Examination - Final 07/25/20 15:07 Cerebrospinal Fluid CSF Culture - Preliminary No growth after 2 days 07/25/20 10:28 Blood - Venous Blood Culture - Preliminary Coagulase-neg Staphyloccocus 07/25/20 17:48 Urine Catheterized - Hill Catheter Urine Culture - Preliminary No growth to date. Progress Note: A&P Assessment and plan (1) TEN (toxic epidermal necrolysis): Status: Acute (2) Cellulitis and abscess of left leg: Status: Acute (3) Pneumonia: Problem details: pneumonia concern over Legionella Concern over strep Status: Acute (4) Sepsis: Status: Acute (5) Acute alteration in mental status: Status: Acute (6) Acute metabolic encephalopathy: Status: Acute (7) Sepsis: Status: Acute (8) Lactic acidosis: Status: Acute (9) Encephalopathy acute: Status: Acute Time Spent With Patient Time: Total time spent is greater than 50% in coordination of care (as documented) at patient's floor/unit and/or counseling patient: Total time spent with greater than 50% in coordination of care (as documented) at patient's floor/unit and/or counseling patient:: 35
[2020-07-27] MEDS: propofoL 1,000 MG/100 ML VIAL 22.08 MG IVCONT (16:25)
[2020-07-27] MEDS: Enoxaparin Sodium 40 MG/0.4 ML SYRINGE SUBCUT (18:03)
[2020-07-27 20:16] LABS: Vancomycin Trough 7.5 mcg/mL (10.0-20.0)
[2020-07-27 20:32] LABS: Triiodothyronine T3 Free 1.9 pg/mL (2.3-4.2)
[2020-07-28] VITALS (30 sets, daily range): BP systolic 117–181; BP diastolic 52–96; PULSE 69–901; RESP 15–38; TEMP 35.7–37.3; O2SAT 93–100; BMI 28.5
[2020-07-28] MEDS: 0.9 % Sodium Chloride 1,000 ML 100 ML IVCONT (01:42)
[2020-07-28] MEDS: propofoL 1,000 MG/100 ML VIAL 27.6 MG IVCONT ×3 (01:43→07:50)
[2020-07-28] MEDS: 0.9 % Sodium Chloride Flush 3 ML SYRINGE IVFLUSH ×7 (01:43→14:50)
[2020-07-28] MEDS: Piperacillin Sodium/Tazobactam 4.5 GM in 0.9 % Sodium Chloride 100 ML IV ×2 (01:47→07:51)
[2020-07-28] MEDS: Doxycycline Hyclate 100 MG in 0.9 % Sodium Chloride 250 ML 166.67 MG IV ×2 (04:26→14:47)
[2020-07-28 06:26] LABS: Basophils Absolute Auto 0.1 X10*3/uL (0.0-0.2); Basophils Percent Auto 0.4 % (0-2); Eosinophils Absolute Auto 1.3 X10*3/uL (0.0-0.4); Eosinophils Percent Auto 6.3 % (0-4); Hematocrit 29.9 % (42-52); Hemoglobin 9.5 g/dl (14.0-18.0); Imm Gran Abs Auto 0.17 X10*3/uL (0.00-0.03); Imm Gran Pct Auto 0.8 % (0.0-0.4); Lymphocytes Absolute Auto 2.5 X10*3/uL (1.2-4.9); Lymphocytes Percent Auto 11.9 % (20-40); MANUAL DIFF FLAG SCAN; Mean Corpuscular HGB Conc 31.8 g/dl (31.0-36.0); Mean Corpuscular Hemoglobin 27.6 pg (27.0-33.0); Mean Corpuscular Volume 86.9 fL (80-98); Mean Platelet Volume 9.9 fL (9.4-12.4); Monocytes Percent Auto 9.8 % (2-11); Neutrophils Absolute Auto 14.7 X10*3/uL (2.0-8.3); Neutrophils Percent Auto 70.8 % (45-73); Platelet Count 254 X10*3/uL (160-400); Red Blood Count 3.44 X10*6/uL (4.60-5.80); Red Cell Distribution Width 17.5 % (11.0-16.0); SCAN SMEAR FLAG 1; White Blood Count 20.7 X10*3/uL (4.8-10.8)
[2020-07-28 06:39] LABS: PCO2 VBG 33 mmhg; pH VBG 7.38 (7.32-7.43)
[2020-07-28 06:40] LABS: Base Excess VBG -5.8 mmol/L; HCO3 VBG 19 mmol/L; Oxygen Saturation VBG 83.3 %; PO2 VBG 43 mmhg
[2020-07-28 07:05] LABS: B Type Natriuretic Peptide 213 pg/mL (<100)
[2020-07-28 07:09] LABS: Alanine Aminotransferase 9 U/L (0-40); Albumin Level 2.3 g/dL (3.5-5.0); Alkaline Phosphatase 135 U/L (39-117); Anion Gap 14 (12-20); Aspartate Amino Transferase 13 U/L (5-37); Bilirubin Total 0.3 mg/dL (0.0-1.0); Blood Urea Nitrogen 31 mg/dL (9-16); Calcium 7.6 mg/dL (8.4-10.2); Carbon Dioxide 17 mmol/L (22-29); Chloride 116 mmol/L (96-108); Creatinine Clr Calc Pharmacy 70.6; Estimated Glomerular Filt Rate 60; Glucose Random 128 mg/dL (60-115); Magnesium 2.1 mg/dL (1.6-2.6); Phosphorus 2.5 mg/dL (2.7-4.5); Potassium 3.5 mmol/l (3.3-5.1); Sodium 143 mmol/L (135-145); Total Protein 4.5 g/dL (6.5-8.0)
[2020-07-28 07:20] LABS: SLIDE REVIEW VERIFIED
[2020-07-28] MEDS: Albuterol/Iprat 2.5/0.5MG 3 ML AMPUL.NEB INHALE ×3 (07:41→20:05)
[2020-07-28] MEDS: fentaNYL citrate/NS 1,000 MCG/100 ML PLAST..BAG 4 MCG IVCONT (07:50)
[2020-07-28 08:03] LABS: HIV AB/AG Nonreactive (Nonreactive); HIV Num 1 0.12 S/CO (0.00-0.99)
[2020-07-28] MEDS: Thiamine HCL 200 MG/2 ML VIAL 100 MG IVPUSH (10:14)
[2020-07-28] MEDS: Levothyroxine Sodium 100 MCG VIAL 50 MCG IVPUSH (10:14)
[2020-07-28] MEDS: Famotidine/PF 20 MG/2 ML VIAL IVPUSH (10:14)
[2020-07-28] MEDS: Furosemide 40 MG/4 ML VIAL IVPUSH (10:27)
[2020-07-28] MEDS: Albumin Human 25 % 100 ML IV ×3 (10:27→21:38)
--- NOTE | 2020-07-28 11:10 | P.CDIC_ITS ---
CDI Concurrent Query Service Date: 07/28/20 Documentation Clarification: Please clarify if you are treating a proba ble/suspected/likely or confirmed: Acute Hypoxic Respiratory Failure acute hypoxic respiratory failure, now resolved No Respiratory Failure Provider Response: Other Other Diagnosis: acute hypoxic respiratory failure, now resolved PLEASE DO NOT DELETE/MODIFY EXISTING CONTENT Additional information is needed in order to code to the highest accuracy and appropriate Severity of Illness (SOI). Please clarify the information noted below in your progress notes and discharge summary. Risk Factors/Clinical Indicators/Treatments 70 year old male admitted with increased confusion Respiratory rate range 18 - 31 Intubated and placed on ventilator for hypoxia Diagnosis Sepsis, possible Aspiration Pneumonia, Acute Metabolic Encephalopathy, Left leg Cellulitis, Toxic Epidurmal Necrolysis Treated with IV antibiotic CDS: Paloma Robert RN Contact Number: [phone] Please Review the information above and exercise your independent professional judgment in responding to the query. If you concur, pleas document in the PROGRESS NOTES and DISCHARGE SUMMARY. If you do not agree with the query, please document in the query above. THIS QUERY IS PART OF THE PERMANENT MEDICAL RECORD
--- NOTE | 2020-07-28 11:13 | MHC.CLN ---
PT RECEIVING JEVITY AT MAX GOAL RATE 50CC/HR PROVIDES 1272KCALS, 53G PROTEIN, 1482CC TOTAL WATER POSSIBLE EXTUBATION TODAY DIET TOLERATED/E [employer]GER IF NEEDED FOLLOWING
[2020-07-28] MEDS: Potassium Phosphate 30 MMOL in 0.9 % Sodium Chloride 500 ML 85 MMOL IV (11:24)
[2020-07-28 12:02] LABS: PCO2 VBG 27 mmhg; PO2 VBG 35 mmhg; pH VBG 7.42 (7.32-7.43)
[2020-07-28 12:03] LABS: Base Excess VBG -5.7 mmol/L; HCO3 VBG 17 mmol/L; Oxygen Saturation VBG 74.7 %
--- NOTE | 2020-07-28 14:55 | P.PNCC_ITS ---
Subjective Subjective Date of Service: 07/28/20 Interval History: 70-year-old gentleman with underlying history of non- Hodgkin's lymphoma, CLL, schizoaffective disorder admitted on 07/25/2020 with alteration of mental status requiring intubation for airway protection in the emergency room. Encephalitis workup negative including CSF studies. CT head with no acute findings. Possible unintentional opioid overdose. Patient has done well on a pressure support trial this a.m. and has been extubated uneventfully. Now remains confused, but redirectable. Physical Exam Vital Signs: Vital Signs: Last Vital Signs Temp 98.1 F 07/28/20 14:00 Pulse 901 H 07/28/20 14:51 Resp 26 H 07/28/20 14:51 BP 157/84 H 07/28/20 14:51 Pulse Ox 96 07/28/20 14:51 Body Mass Index 28.5 Const: General: no acute distress and lethargic ( But arousable) Eyes: Sclerae: sclerae normal EOM: EOMs intact bilaterally Neck: Neck: Yes no lymphadenopathy, Yes trachea midline and Yes supple Resp: Effort & Inspection: normal respiratory effort and no respiratory distress Auscultation: clear to auscultation bilaterally Cardio: Rate: regular rate Rhythm: regular rhythm Heart sounds: no gallops, no murmurs and no rubs GI: Palpation (GI): Soft to palpation and Other GI palpation findings present ( Nontender) Auscultation: normal bowel sounds Extrem: General: Yes no pedal edema, No clubbing and No cyanosis Objective Data Labs CBC & Chem 7: 07/28/20 05:56 07/28/20 05:56 Labs: Laboratory Results - last 24 hr 07/25/20 07/26/20 07/27/20 10:29 14:56 19:03 WBC RBC Hgb Hct MCV MCH MCHC RDW Plt Count MPV Immature Gran % (Auto) Neut % (Auto) Lymph % (Auto) [place] % (Auto) Eos % (Auto) Baso % (Auto) Lymph # (Auto) [place] # (Auto) Eos # (Auto) Baso # (Auto) Abs Immat Gran (auto) Absolute Neuts (auto) Absolute Nucleated RBC Nucleated RBC % (auto) Smear Tech's Comments VBG pH VBG pCO2 VBG pO2 VBG HCO3 VBG O2 Saturation VBG Base Excess Sodium Potassium Chloride Carbon Dioxide Anion Gap BUN Creatinine Estim Creat Clear Calc Estimated GFR Random Glucose Calcium Phosphorus Magnesium Total Bilirubin AST ALT Alkaline Phosphatase B-Natriuretic Peptide Total Protein Albumin Free T3 1.9 L Vancomycin Trough 7.5 L HIV 1&2 Ab/P24 Ag 4thGn Nonreactive 07/28/20 07/28/20 07/28/20 05:56 05:56 05:56 WBC 20.7 H RBC 3.44 L Hgb 9.5 L Hct 29.9 L MCV 86.9 MCH 27.6 MCHC 31.8 RDW 17.5 H Plt Count 254 MPV 9.9 Immature Gran % (Auto) 0.8 H Neut % (Auto) 70.8 Lymph % (Auto) 11.9 L [place] % (Auto) 9.8 Eos % (Auto) 6.3 H Baso % (Auto) 0.4 Lymph # (Auto) 2.5 [place] # (Auto) 2.0 H Eos # (Auto) 1.3 H Baso # (Auto) 0.1 Abs Immat Gran (auto) 0.17 H Absolute Neuts (auto) 14.7 H Absolute Nucleated RBC 0.000 Nucleated RBC % (auto) 0.0 Smear Tech's Comments VERIFIED VBG pH VBG pCO2 VBG pO2 VBG HCO3 VBG O2 Saturation VBG Base Excess Sodium 143 Potassium 3.5 Chloride 116 H Carbon Dioxide 17 L Anion Gap 14 BUN 31 H Creatinine 1.20 Estim Creat Clear Calc 70.6 Estimated GFR 60 Random Glucose 128 H Calcium 7.6 L Phosphorus 2.5 L Magnesium 2.1 Total Bilirubin 0.3 AST 13 ALT 9 Alkaline Phosphatase 135 H D B-Natriuretic Peptide 213 H Total Protein 4.5 L Albumin 2.3 L Free T3 Vancomycin Trough HIV 1&2 Ab/P24 Ag 4thGn 07/28/20 07/28/20 05:56 11:45 WBC RBC Hgb Hct MCV MCH MCHC RDW Plt Count MPV Immature Gran % (Auto) Neut % (Auto) Lymph % (Auto) [place] % (Auto) Eos % (Auto) Baso % (Auto) Lymph # (Auto) [place] # (Auto) Eos # (Auto) Baso # (Auto) Abs Immat Gran (auto) Absolute Neuts (auto) Absolute Nucleated RBC Nucleated RBC % (auto) Smear Tech's Comments VBG pH 7.38 7.42 VBG pCO2 33 27 VBG pO2 43 35 VBG HCO3 19 17 VBG O2 Saturation 83.3 74.7 VBG Base Excess -5.8 -5.7 Sodium Potassium Chloride Carbon Dioxide Anion Gap BUN Creatinine Estim Creat Clear Calc Estimated GFR Random Glucose Calcium Phosphorus Magnesium Total Bilirubin AST ALT Alkaline Phosphatase B-Natriuretic Peptide Total Protein Albumin Free T3 Vancomycin Trough HIV 1&2 Ab/P24 Ag 4thGn Microbiology Microbiology Results: Microbiology 07/25/20 15:07 Cerebrospinal Fluid Gram Stain - Final 07/25/20 15:07 Cerebrospinal Fluid CSF Examination - Final 07/25/20 15:07 Cerebrospinal Fluid Gross Specimen Examination - Final 07/25/20 15:07 Cerebrospinal Fluid CSF Culture - Final No growth after 3 days. 07/25/20 17:48 Urine Catheterized - Hill Catheter Urine Culture - Final No growth. 07/25/20 10:59 Blood - Venous Blood Culture - Preliminary No growth after 48 hours. 07/25/20 17:48 Sputum - Suctioned Gram Stain - Final 07/25/20 17:48 Sputum - Suctioned Sputum Culture - Final 07/25/20 10:28 Blood - Venous Blood Culture - Preliminary Coagulase-neg Staphyloccocus Progress Note: A&P Assessment and plan (1) Acute alteration in mental status: Status: Acute Assessment and Plan: Assessment: 70-year-old gentleman with underlying history of remote non- Hodgkin's lymphoma and CLL, also schizoaffective disorder admitted with acute alteration of mental status of unclear etiology requiring intubation and ventilatory support for airway protection. Plan: Neuro: Acute encephalopathy of unclear etiology, possible unintentional opioid overdose. Now improved. Continue to monitor. Cardiac: No acute issues. Pulmonary: Acute respiratory failure requiring ventilatory support. Extubated uneventfully this a.m.. Continue to titrate off supplemental oxygen as tolerated. Renal: No acute issues. Endo: No acute issues. GI: No acute issues. ID: No Evidence of encephalitis. Left lower lobe infiltrate, empirically covered with doxycycline for predominantly Gram-positive cocci on sputum Gram stain. Heme/Onc: No acute issues. Psych: No acute issues. Miscellaneous: No acute issues. Prophylaxis: Lovenox, does not require GI prophylaxis Diet: pending swallow evaluation Critical care time spent: 60 minutes (2) Acute respiratory failure: Status: Acute Time Spent With Patient Total time spent with greater than 50% in coordination of care (as documented) at patient's floor/unit and/or counseling patient:: 0 Critical Care Time Critical Care Time (minutes): 60
[2020-07-28] MEDS: Enoxaparin Sodium 40 MG/0.4 ML SYRINGE SUBCUT (15:48)
[2020-07-28 18:45] LABS: Anion Gap 18 (12-20); Blood Urea Nitrogen 28 mg/dL (9-16); Calcium 8.2 mg/dL (8.4-10.2); Carbon Dioxide 17 mmol/L (22-29); Chloride 115 mmol/L (96-108); Creatinine Clr Calc Pharmacy 68.9; Estimated Glomerular Filt Rate 58; Glucose Random 95 mg/dL (60-115); Potassium 3.8 mmol/l (3.3-5.1); Sodium 146 mmol/L (135-145)
[2020-07-28 19:47] LABS: Lyme (B. burgdorferi) PCR NOT DETECTED (NOT DETECTED)
[2020-07-28] MEDS: LORazepam 2 MG/ML VIAL 1 MG IVPUSH ×2 (20:24→22:19)
[2020-07-28] MEDS: Chlorhexidine Gluc Oral Rinse 15 ML MOUTHWASH BUCCAL (21:38)
[2020-07-29] VITALS (28 sets, daily range): BP systolic 90–169; BP diastolic 57–99; PULSE 68–124; RESP 6–48; TEMP 36.7–37.4; O2SAT 92–100; BMI 28.0
--- NOTE | 2020-07-29 | XR_ITS ---
EXAMINATION: XR CHEST CLINICAL INFORMATION: Shortness of breath COMPARISON: 07/25/2020 TECHNIQUE: Frontal view of the chest was obtained. FINDINGS: Interval extubation. Right internal jugular central venous catheter terminates near the cavoatrial junction. Cardiac leads overlie the chest. Lung volumes are low. Patchy bilateral airspace opacities are seen, increased from prior. No definite pleural effusion. No pneumothorax. The cardiomediastinal silhouette is unchanged. XR/XR chest 1V IMPRESSION: Worsening bilateral patchy airspace opacities.
--- NOTE | 2020-07-29 02:14 | PC.NURSE ---
PT AWAKE/SPEECH SLOW AND MUFFLED. HE IS ABLE TO STATE THE PLACE THE HOSPITAL. HE HAS EXPERIENCED EPISODES OF ANXIETY AND AGITATION IN WHICH HE STATES HE IS LEAVING THE HOSPITAL. PT HAS ATTEMPTED TO CLIMB OVER SIDERAILS. PT IS FRAIL AND DEBILITATED. COMPLEXION PALE. SKIN COOL/DRY. GROSS LYMPHEDEMA IS PRESENT INVOLVING LEFT LEG. HE IS WEARING SUPPLEMENTAL O2 AT 3LPM VIA PRONGS. PT IS TACHYPNEIC WIRH RR 28-35 BPM. BREATH SOUNDS COARSE WITH I/E RHONCHI THROUGHOUT UPPER LUNG FILEDS. PT HAS A LOOSE INEFFECTIVE COUGH. ECG DISPLAYS SR. HEMODYNAMICALLY STABLE. ABDOMEN LARGE/PROTUBERANT/SEMISOFT. MCQUEEN CATHETER PATENT AND DRAINING DK ANA URINE. I. HOB 30-35 DEGREES/REPOSITIONED SIDE TO SIDE Q 2HR I. VIGOROUS PULMONARY HYGIENE ENCOURAGED/INSTRUCTED ON THE USE OF INCENTIVE SPIROMETER WELL DEEP BREATHING AND COUGHING I. TELESITTER PLACED IN ROOM I. ATIVAN 1 MG IVP FOR AGITATION I. LASIX 40 MG IVP I. NASAL TRUMPET INSERTED RIGHT NARE AND NASOPHARYNGEAL SUCTIONING PERFORMED E. DESPITE EXTENSIVE INSTRUCTION ON THE USE OF I/S PT IS UNABLE TO FOLLOW INSTRUCTION AND PERFORM I/S. PT HAS HAD BRIEF PERIODS OF SOMNOLENCE ASSOCIATED WITH ATIVAN ADMINISTRATION. HE WILL FOLLOW SIMPLE COMMAND. PERIPHERAL IVS LEAKING. IVS RIGHT ARM D/C AND DSD APPLIED. WITH THE ASSISTANCE OF RT NASOPHARYNGEAL SUCTIONING CARRIED OUT WITH LARGE AMOUNTS OF THICK YELLOW BLOOD TINGED SPUTUM BEING CLEARED FROM AIRWAY. POST SUCTIONING ASCULATION OF LUNG DAVIS REVEALS A REDUCTION IN RHONCHI. PT REAMINS TACHYPNEIC. RR 30S BPM. SAO2 95-96%. SUPPLEMENTAL O2 4LPM. HEMODYNAMICALLY STABLE. ECG DISPLAYS SR-ST. NPO STATUS UNTIL SPEECH EVALUATION LATER TODAY. U/O 150-300 ML/HR.
[2020-07-29] MEDS: Doxycycline Hyclate 100 MG in 0.9 % Sodium Chloride 250 ML 166.67 MG IV ×2 (03:13→15:35)
[2020-07-29] MEDS: 0.9 % Sodium Chloride Flush 3 ML SYRINGE IVFLUSH ×4 (03:14→22:28)
[2020-07-29] MEDS: Albumin Human 25 % 100 ML IV (04:51)
[2020-07-29] MEDS: Furosemide 20 MG/2 ML VIAL IVPUSH (06:07)
[2020-07-29 06:10] LABS: Basophils Absolute Auto 0.1 X10*3/uL (0.0-0.2); Basophils Percent Auto 0.5 % (0-2); Eosinophils Absolute Auto 0.4 X10*3/uL (0.0-0.4); Hematocrit 31.5 % (42-52); Hemoglobin 9.9 g/dl (14.0-18.0); Imm Gran Abs Auto 0.52 X10*3/uL (0.00-0.03); Imm Gran Pct Auto 2.6 % (0.0-0.4); Lymphocytes Absolute Auto 2.2 X10*3/uL (1.2-4.9); Lymphocytes Percent Auto 10.6 % (20-40); MANUAL DIFF FLAG SCAN; Mean Corpuscular HGB Conc 31.4 g/dl (31.0-36.0); Mean Corpuscular Hemoglobin 27.5 pg (27.0-33.0); Mean Corpuscular Volume 87.5 fL (80-98); Mean Platelet Volume 9.9 fL (9.4-12.4); Monocytes Absolute Auto 2.4 X10*3/uL (0.1-1.2); Monocytes Percent Auto 11.8 % (2-11); Neutrophils Absolute Auto 14.7 X10*3/uL (2.0-8.3); Neutrophils Percent Auto 72.5 % (45-73); Platelet Count 244 X10*3/uL (160-400); Red Cell Distribution Width 17.8 % (11.0-16.0); SCAN SMEAR FLAG 1; White Blood Count 20.2 X10*3/uL (4.8-10.8)
[2020-07-29 06:27] LABS: Base Excess VBG -8.9 mmol/L; HCO3 VBG 16 mmol/L; Oxygen Saturation VBG 72.7 %; PCO2 VBG 29 mmhg; PO2 VBG 37 mmhg; pH VBG 7.35 (7.32-7.43)
[2020-07-29 06:32] LABS: SLIDE REVIEW VERIFIED
[2020-07-29 06:42] LABS: Alanine Aminotransferase 12 U/L (0-40); Albumin Level 3.8 g/dL (3.5-5.0); Alkaline Phosphatase 138 U/L (39-117); Anion Gap 21 (12-20); Aspartate Amino Transferase 20 U/L (5-37); Bilirubin Total 0.8 mg/dL (0.0-1.0); Blood Urea Nitrogen 28 mg/dL (9-16); Calcium 8.7 mg/dL (8.4-10.2); Carbon Dioxide 15 mmol/L (22-29); Chloride 115 mmol/L (96-108); Creatinine Clr Calc Pharmacy 67.2; Estimated Glomerular Filt Rate 57; Glucose Random 86 mg/dL (60-115); Magnesium 2.1 mg/dL (1.6-2.6); Phosphorus 4.3 mg/dL (2.7-4.5); Sodium 147 mmol/L (135-145); Total Protein 6.1 g/dL (6.5-8.0)
[2020-07-29] MEDS: fentaNYL citrate/PF 100 MCG/2 ML VIAL 25 MCG IVPUSH (06:49)
--- NOTE | 2020-07-29 07:33 | PC.NURSE ---
Addendum entered by Doretha Obrien RN 07/29/20 18:42: This RN in room with other patient - sitter pulled from bedside - notified by staff patient was in VTACH . ?Nonsustained VTach on monitor for approx 50 seconds and broke to SR HR 80's - Patient broke Bipap mask - nasal cannula applied and respiratory at bedside with new mask and sitter - BP 111/77, O2 sat maintaining >90% throughout. MD notified - labs to be ordered by MD - Code cart at bedside. will report to oncoming RN. Addendum entered by Doretha Obrien RN 07/29/20 13:16: Patient broke third Bipap mask, continuing to remain agitated/restless while awake but otherwise calm when sleeping - Patient placed on 6L nasal cannula - O2 sat down to 88%, respiratory rate up to 64 while awake and restless on 6L NC- Precedex gtt maxed out. Bipap mask placed back on and sitter at bedside. Patient resting quietly with eyes closed, RR down to 33, BP 121/86, O2 sat 99% on 50%, HR 70's. MD notified - no new orders at this time per MD. Will continue to monitor. Addendum entered by Doretha Obrien RN 07/29/20 11:48: Patient calm and corporative with Bipap while asleep but becomes very agitated when awake - patient broke two Bipap masks, throwing legs and head over side rails, pulling wires & tubes - RR 40-50, HR 110-120's, O2 sat stable - patient unable to follow commands or unable to be redirected. Md notified of patients increased agitation/restlessness - Precedex gtt ordered and hung - Will continue to monitor. Original Note: Assumed care at 0700 - patient presenting with increased respiratory distress, increased agitation/restlessness, respiratory rate 40-50's, accessory muscle use, abdominal breathing, HR 140'S, BP 172/105, O2 Sat on 5L NC 88-90%, coarse upper lung sounds. Dr Breen notified - TO for Bipap - respiratory at bedside and placed on Bipap 16/6 50%. ECG obtained - RR down to 29-30, patient appears more comfortable, 02 sat 98%, BP 135/93, HR 97. Awaiting datacap developer arrival. Will continue to monitor.
--- NOTE | 2020-07-29 07:35 | PC.NURSE ---
Addendum entered by Doretha Obrien RN 07/29/20 09:40: MD ordered modafinil 200mg - okay to administer PO per md - will continue to monitor. Original Note: PT HAS DEVELOPED INCREASED RESTLESSNESS AND CONFUSION. HE HAS REMOVED NASAL CANNULA FROM SELF. SAO2 DROPPING INTO THE 88-89%. PT RETURNED TO CANNULA WHICH FLOW RATE INCREASED TO 5LPM. SAO2 WINNIE TO 90-91%. SECURITIES TRADER MARV HALE SUMMONED TO BEDSIDE. THE FOLLOWING DISCUSSED 1. PTS USE OF HOME OPIATES AND POSSIBLE WITHDRAWL 2. PT INCREASED WORK OF BREATHING 3. FINE CRACKLES IN THE BASES BILAT 4. I/O REVIEWED THE FOLLOWING TX A. LASIX 20 MG IVP 2. FENTANYL 25 MCG IVP NOW 3. STAT CXR PLAN IF PTS RESP STATUS CONTINUES TO DECOMPENSATE WILL PLACE ON BIPAP AND CONSIDER REINTUBATION.
[2020-07-29] MEDS: Albuterol/Iprat 2.5/0.5MG 3 ML AMPUL.NEB INHALE ×3 (08:04→20:09)
[2020-07-29] MEDS: Levothyroxine Sodium 100 MCG VIAL 50 MCG IVPUSH (09:15)
[2020-07-29 09:39] LABS: Lyme PCR Source CSF
[2020-07-29] MEDS: modafiniL 100 MG TABLET 200 MG PO (09:53)
[2020-07-29] MEDS: dexmedeTOMIDidine HCL/NS 400 MCG/100 ML INFUS..BTL 9.64 MCG IVCONT (10:59)
--- NOTE | 2020-07-29 11:07 | ECG_ITS ---
Test Reason : EKG 07/29/20 AT 07:29:48 Blood Pressure : / mmHG Vent. Rate : 109 BPM Atrial Rate : 109 BPM P-R Int : 178 ms QRS Dur : 090 ms QT Int : 352 ms P-R-T Axes : 041 -35 055 degrees QTc Int : 474 ms Poor data quality Sinus tachycardia Left axis deviation Low voltage QRS Inferior infarct , age undetermined Nonspecific T wave abnormality Lateral leads Abnormal ECG When compared with ECG of [id number] Heart rate has increased Nonspecific T wave abnormality is new Premature ventricular complexes are no longer Present Referred By: Abel Breen Electronically Signed By:HOANG PHELAN MD
--- NOTE | 2020-07-29 11:39 | MHC.SLORD ---
[address] [address] Speech & Hearing [phone] Name: Can Baltazar Date of : 1950 Age: 70 Date of Registration: 07/25/20 [facility] [employer] attempted to see pt this date. Per RN report, pt is not appropriate for PO trials at this time. RN will contact [employer] [employer] when pt is more stable. Speech Language Pathology Order Status:
--- NOTE | 2020-07-29 14:03 | MHC.CM.PN ---
Patient remains in ICU. Extubated today. Patient is from [facility]. Prior to that he was at [facility]. T/W is attempting to obtain a copy of HCP from [facility]. Continue to monitor for d/c needs.
[2020-07-29] MEDS: dexmedeTOMIDidine HCL/NS 400 MCG/100 ML INFUS..BTL 7.23 MCG IVCONT (15:35)
--- NOTE | 2020-07-29 16:43 | PM.CCPN ---
Subjective Subjective Date of Service: 07/29/20 Interval History: 70-year-old gentleman with underlying history of non-Hodgkin's lymphoma, CLL, schizoaffective disorder admitted on 07/25/2020 with alteration of mental status requiring intubation for airway protection in the emergency room. Encephalitis workup negative including CSF studies. CT head with no acute findings. Possible unintentional opioid overdose. Extubated 07/28/2020. Now remains confused, but redirectable, improving slowly. overnight with several desaturation episodes likely secondary small recurrent aspirations, intermittent a required BiPAP support. Mentation improving slowly. Physical Exam Vital Signs: Vital Signs: Last Vital Signs Temp 98.1 F 07/29/20 16:00 Pulse 91 07/29/20 16:00 Resp 27 H 07/29/20 16:00 BP 120/77 07/29/20 16:00 Pulse Ox 100 07/29/20 16:00 Body Mass Index 28.0 Const: General: no acute distress and lethargic ( Arousable, intermittently restless) Orientation/consciousness: lethargic ( Arousable, intermittently restless) Eyes: Sclerae: sclerae normal EOM: EOMs intact bilaterally Neck: Neck: Yes no lymphadenopathy, Yes trachea midline and Yes supple Resp: Effort & Inspection: normal respiratory effort and no respiratory distress Auscultation: clear to auscultation bilaterally Cardio: Rate: regular rate Rhythm: regular rhythm Heart sounds: no gallops, no murmurs and no rubs GI: Palpation (GI): Soft to palpation and Other GI palpation findings present ( Nontender) Auscultation: normal bowel sounds Extrem: General: No clubbing, No cyanosis and Yes edema ( trace bilateral) Objective Data Labs CBC & Chem 7: 07/29/20 05:47 07/29/20 05:48 Labs: Laboratory Results - last 24 hr 07/25/20 07/28/20 07/29/20 15:07 18:05 05:47 WBC 20.2 H RBC 3.60 L Hgb 9.9 L Hct 31.5 L MCV 87.5 MCH 27.5 MCHC 31.4 RDW 17.8 H Plt Count 244 MPV 9.9 Immature Gran % (Auto) 2.6 H Neut % (Auto) 72.5 Lymph % (Auto) 10.6 L [place] % (Auto) 11.8 H Eos % (Auto) 2.0 Baso % (Auto) 0.5 Lymph # (Auto) 2.2 [place] # (Auto) 2.4 H Eos # (Auto) 0.4 Baso # (Auto) 0.1 Abs Immat Gran (auto) 0.52 H Absolute Neuts (auto) 14.7 H Absolute Nucleated RBC 0.000 Nucleated RBC % (auto) 0.0 Smear Tech's Comments VERIFIED VBG pH VBG pCO2 VBG pO2 VBG HCO3 VBG O2 Saturation VBG Base Excess Sodium 146 H Potassium 3.8 Chloride 115 H Carbon Dioxide 17 L Anion Gap 18 BUN 28 H Creatinine 1.23 Estim Creat Clear Calc 68.9 Estimated GFR 58 Random Glucose 95 Calcium 8.2 L D Phosphorus Magnesium Total Bilirubin AST ALT Alkaline Phosphatase Total Protein Albumin Fld Lyme DNA (PCR) CSF Lyme Disease DNA (PCR) NOT DETECTED 07/29/20 07/29/20 05:47 05:48 WBC RBC Hgb Hct MCV MCH MCHC RDW Plt Count MPV Immature Gran % (Auto) Neut % (Auto) Lymph % (Auto) [place] % (Auto) Eos % (Auto) Baso % (Auto) Lymph # (Auto) [place] # (Auto) Eos # (Auto) Baso # (Auto) Abs Immat Gran (auto) Absolute Neuts (auto) Absolute Nucleated RBC Nucleated RBC % (auto) Smear Tech's Comments VBG pH 7.35 VBG pCO2 29 VBG pO2 37 VBG HCO3 16 VBG O2 Saturation 72.7 VBG Base Excess -8.9 Sodium 147 H Potassium 4.0 Chloride 115 H Carbon Dioxide 15 L Anion Gap 21 H BUN 28 H Creatinine 1.26 Estim Creat Clear Calc 67.2 Estimated GFR 57 Random Glucose 86 Calcium 8.7 D Phosphorus 4.3 Magnesium 2.1 Total Bilirubin 0.8 AST 20 D ALT 12 Alkaline Phosphatase 138 H Total Protein 6.1 L D Albumin 3.8 D Fld Lyme DNA (PCR) Lyme Disease DNA (PCR) Microbiology Microbiology Results: Microbiology 07/25/20 15:07 Cerebrospinal Fluid Gram Stain - Final 07/25/20 15:07 Cerebrospinal Fluid CSF Examination - Final 07/25/20 15:07 Cerebrospinal Fluid Gross Specimen Examination - Final 07/25/20 15:07 Cerebrospinal Fluid CSF Culture - Final No growth after 3 days. 07/25/20 17:48 Urine Catheterized - Hill Catheter Urine Culture - Final No growth. 07/25/20 10:59 Blood - Venous Blood Culture - Preliminary No growth after 48 hours. 07/25/20 17:48 Sputum - Suctioned Gram Stain - Final 07/25/20 17:48 Sputum - Suctioned Sputum Culture - Final 07/25/20 10:28 Blood - Venous Blood Culture - Preliminary Coagulase-neg Staphyloccocus Progress Note: A&P Assessment and plan (1) Acute metabolic encephalopathy: Status: Acute Assessment and Plan: Assessment: 70-year-old gentleman with underlying history of remote non-Hodgkin's lymphoma and CLL, also schizoaffective disorder admitted with acute alteration of mental status of unclear etiology requiring intubation and ventilatory support for airway protection. Plan: Neuro: Acute encephalopathy of unclear etiology, possible unintentional opioid overdose. Now improving slowly. Continue to monitor. Cardiac: No acute issues. Pulmonary: Acute respiratory failure requiring ventilatory support. Extubated 07/28/2020. Intermittently requiring BiPAP support. Continue to titrate off supplemental oxygen as tolerated. Renal: No acute issues. Endo: No acute issues. GI: No acute issues. ID: No evidence of encephalitis. Left lower lobe infiltrate, empirically covered with doxycycline for predominantly Gram-positive cocci on sputum Gram stain. No evidence of bacteremia, early coagulase negative Staph blood culture is a contaminant. Heme/Onc: No acute issues. Psych: No acute issues. Miscellaneous: No acute issues. Prophylaxis: Lovenox, does not require GI prophylaxis Diet: pending swallow evaluation Critical care time spent: 60 minutes (2) Acute alteration in mental status: Status: Acute (3) Acute respiratory failure: Status: Acute Time Spent With Patient Time: Total time spent is greater than 50% in coordination of care (as documented) at patient's floor/unit and/or counseling patient: Total time spent with greater than 50% in coordination of care (as documented) at patient's floor/unit and/or counseling patient:: 0 Critical Care Time Critical Care Time (minutes): 60
[2020-07-29 20:45] LABS: Anion Gap 25 (12-20); Blood Urea Nitrogen 35 mg/dL (9-16); Calcium 8.4 mg/dL (8.4-10.2); Carbon Dioxide 12 mmol/L (22-29); Chloride 116 mmol/L (96-108); Creatinine Clr Calc Pharmacy 66.2; Estimated Glomerular Filt Rate 56; Glucose Random 129 mg/dL (60-115); Magnesium 2.1 mg/dL (1.6-2.6); Potassium 4.5 mmol/l (3.3-5.1); Sodium 148 mmol/L (135-145)
[2020-07-29 21:42] LABS: Legionella Ag Urine Not Detected (Not Detected)
[2020-07-29] MEDS: dexmedeTOMIDidine HCL/NS 400 MCG/100 ML INFUS..BTL 12.05 MCG IVCONT (22:28)
[2020-07-30] VITALS (34 sets, daily range): BP systolic 98–168; BP diastolic 63–117; PULSE 85–124; RESP 21–93; TEMP 36.9–37.5; O2SAT 94–111; BMI 28.9
--- NOTE | 2020-07-30 | XR_ITS ---
EXAMINATION: XR CHEST CLINICAL INFORMATION: Intubation. COMPARISON: 07/29/2020 TECHNIQUE: Frontal view of the chest was obtained. FINDINGS: Since the prior study, the patient has been intubated and an ET tube is 5.9 cm above the jael. A right IJ catheter is present with its tip in good position in the right atrium. Heart size within normal limits. Bilateral pulmonary airspace opacities are unchanged. XR/XR chest 1V IMPRESSION: ET tube 5.9 cm above the jael. Bilateral pulmonary airspace opacities, unchanged.
--- NOTE | 2020-07-30 00:30 | ECG_ITS ---
Test Reason : RHYTHM CHAMGE Blood Pressure : / mmHG Vent. Rate : 090 BPM Atrial Rate : 090 BPM P-R Int : 176 ms QRS Dur : 100 ms QT Int : 428 ms P-R-T Axes : 049 -17 032 degrees QTc Int : 523 ms Sinus rhythm with occasional Premature ventricular complexes Low voltage QRS ST elevation in Lateral leads Prolonged QT Abnormal ECG When compared with ECG of 29-JUL-2020 07:29, Premature ventricular complexes are now Present QT has lengthened ST elevation now present in Lateral leads Referred By: Blayne Campbell Electronically Signed By:HOANG PHELAN MD
[2020-07-30 00:59] LABS: Base Excess VBG -12.5 mmol/L; HCO3 VBG 12 mmol/L; Oxygen Saturation VBG 70.2 %; PCO2 VBG 24 mmhg; PO2 VBG 38 mmhg; pH VBG 7.39 (7.32-7.43)
[2020-07-30 01:28] LABS: Troponin-I High Sensitivity 1384.1 ng/L (<3.5-35.0)
[2020-07-30] MEDS: Aspirin 300 MG SUPP.RECT PR ×2 (01:48→12:21)
[2020-07-30] MEDS: Doxycycline Hyclate 100 MG in 0.9 % Sodium Chloride 250 ML 167 MG IV (01:49)
[2020-07-30 06:06] LABS: Basophils Percent Auto 0.2 % (0-2); Eosinophils Absolute Auto 0.1 X10*3/uL (0.0-0.4); Eosinophils Percent Auto 0.5 % (0-4); Hematocrit 31.7 % (42-52); Hemoglobin 9.9 g/dl (14.0-18.0); Imm Gran Abs Auto 0.39 X10*3/uL (0.00-0.03); Imm Gran Pct Auto 2.1 % (0.0-0.4); Lymphocytes Absolute Auto 1.7 X10*3/uL (1.2-4.9); Lymphocytes Percent Auto 9.1 % (20-40); MANUAL DIFF FLAG SCAN; Mean Corpuscular HGB Conc 31.2 g/dl (31.0-36.0); Mean Corpuscular Hemoglobin 27.5 pg (27.0-33.0); Mean Corpuscular Volume 88.1 fL (80-98); Monocytes Percent Auto 10.7 % (2-11); Neutrophils Absolute Auto 14.4 X10*3/uL (2.0-8.3); Neutrophils Percent Auto 77.4 % (45-73); Platelet Count 248 X10*3/uL (160-400); Red Cell Distribution Width 17.8 % (11.0-16.0); SCAN SMEAR FLAG 1; White Blood Count 18.6 X10*3/uL (4.8-10.8)
[2020-07-30] MEDS: dexmedeTOMIDidine HCL/NS 400 MCG/100 ML INFUS..BTL 9.64 MCG IVCONT (06:18)
[2020-07-30 06:29] LABS: Base Excess VBG -10.9 mmol/L; HCO3 VBG 13 mmol/L; Oxygen Saturation VBG 81.9 %; PCO2 VBG 23 mmhg; PO2 VBG 45 mmhg; pH VBG 7.36 (7.32-7.43)
[2020-07-30 06:46] LABS: SLIDE REVIEW VERIFIED
[2020-07-30 06:49] LABS: Albumin Level 3.4 g/dL (3.5-5.0); Anion Gap 22 (12-20); Blood Urea Nitrogen 40 mg/dL (9-16); Calcium 8.6 mg/dL (8.4-10.2); Carbon Dioxide 13 mmol/L (22-29); Chloride 116 mmol/L (96-108); Creatinine Clr Calc Pharmacy 66.1; Estimated Glomerular Filt Rate 55; Glucose Random 118 mg/dL (60-115); Magnesium 2.2 mg/dL (1.6-2.6); Phosphorus 3.9 mg/dL (2.7-4.5); Potassium 4.1 mmol/l (3.3-5.1); Sodium 147 mmol/L (135-145)
[2020-07-30] MEDS: Albuterol/Iprat 2.5/0.5MG 3 ML AMPUL.NEB INHALE ×3 (07:39→19:51)
[2020-07-30] MEDS: Furosemide 40 MG/4 ML VIAL IVPUSH (08:32)
[2020-07-30] MEDS: 0.9 % Sodium Chloride Flush 3 ML SYRINGE IVFLUSH ×3 (08:32→21:12)
--- NOTE | 2020-07-30 10:18 | MHC.CM.PN ---
Patient remains in ICU on Precedix drip. Patient was extubated on 07/28. Anticipate patient will return to [facility] when medically stable. Continue to monitor for d/c needs.
--- NOTE | 2020-07-30 10:25 | MHC.CLN ---
F/U PT'S MENTAL STATUS SLOWLY IMPROVING PER NSG RECOMMEND DIET TOLERATED/TILE MOLDER HAND IF NEEDED IF PO POOR ADD ENSURE FOLLOWING
--- NOTE | 2020-07-30 10:43 | MHC.SLORD ---
[address] [address] Speech & Hearing [phone] Name: Can Baltazar Date of : 1950 Age: 70 Date of Registration: 07/25/20 [employer]AKER UP attempted to see pt this morning for bedside swallow evaluation. Per RN report, pt is on BiPAP O2. RN spoke with MD regarding swallow eval. Pt is not appropriate at this time given his current condition. BREAKER UP will continue to follow as needed. Speech Language Pathology Order Status:
[2020-07-30] MEDS: Levothyroxine Sodium 100 MCG VIAL 50 MCG IVPUSH (10:45)
[2020-07-30] MEDS: Albumin Human 25 % 100 ML IV ×3 (10:48→21:12)
--- NOTE | 2020-07-30 11:08 | ECG_ITS ---
Test Reason : EKG 07/30/20 AT 13:29:50 Blood Pressure : / mmHG Vent. Rate : 090 BPM Atrial Rate : 090 BPM P-R Int : 080 ms QRS Dur : 128 ms QT Int : 426 ms P-R-T Axes : 077 198 -38 degrees QTc Int : 521 ms Sinus rhythm with short RI with Fusion complexes Right bundle branch block Possible Lateral infarct , age undetermined ST elevation in Lateral leads Serial changes of evolving lateral myocardial infarction Abnormal ECG When compared with ECG of Significant changes have occurred Referred By: Abel Breen Electronically Signed By:HOANG PHELAN MD
[2020-07-30] MEDS: Amiodarone/Dextrose 150 MG/100 ML PLAST..BAG 600 MG IV (11:15)
--- NOTE | 2020-07-30 11:30 | CA_ITS ---
Transthoracic Echocardiogram Patient (Last, First, Middle): Can Baltazar, Gender: Male Date of : 1950 Age: 70 Procedure Date: 07/30/2020 Procedure Type: Transthoracic Echocardiogram Location: ICU Height: 182.88 cm Weight: 99.34 kg BSA: 2.21 m2 Heart Rate: bpm BP: 122 / 80 mmHg [employer]: Referring MD: Abel Breen MD Symptoms: dyspnea Study Quality: Fair ECG Rhythm: Sinus Conclusions: - Normal left ventricular cavity size. There is moderately increased left ventricular wall thickness. The left ventricular systolic function is severely decreased. The visually estimated ejection fraction is between 20-25%. - The mid anterior, mid inferior, mid anterolateral, mid inferoseptal, mid anteroseptal, and mid inferolateral segments are akinetic. - Findings are suggestive of a mid ventricular variant of Takotsubo cardiomyopathy. - Significantly elevated right atrial pressure. Moderate pulmonary hypertension is present. Findings Procedure Information Contrast agent, definity, is being given per protocol without apparent complications. Left Ventricle Normal left ventricular cavity size. There is moderately increased left ventricular wall thickness. The left ventricular systolic function is severely decreased. The visually estimated ejection fraction is between 20 25%. There is evidence of regional wall motion abnormalities. Diastolic function is indeterminate on the basis of available data. Wall Motion Rest Echo Findings The mid anterior, mid inferior, mid anterolateral, mid inferoseptal, mid anteroseptal, and mid inferolateral segments are akinetic. Right Ventricle The right ventricle was not well visualized. Atria The left atrium is moderately dilated. Aortic Valve The aortic valve was not well visualized. There is no aortic valve stenosis. There is mild aortic valve regurgitation. Mitral Valve The mitral valve appears normal. There is trace mitral valve regurgitation. There is no mitral valve stenosis. Pulmonic Valve Normal pulmonic valve structure and function. Tricuspid Valve The tricuspid valve was not well visualized. There is trace tricuspid valve regurgitation. Significantly elevated right atrial pressure. Moderate pulmonary hypertension is present. Great Vessels All visible segments of the aorta are normal in size. The pulmonary artery was not well visualized. Venous The inferior vena cava is dilated and does not collapse with inspiration. Pericardium/Pleural There is no evidence of pericardial effusion. Prior Study Comparison No prior study available for comparison. Measurements 2D Linear Measurements IVSd: 1.38 0.6-0.9/0.6-1.0 cm LVIDd: 4.70 3.9-5.3/4.2-5.9 cm LVIDd Index: 2.13 2.4-3.2/2.2-3.1 cm/m2 LVIDs: 3.93 2.0-3.6 cm LVPWd: 1.38 0.7-1.1 cm Ao Root: 3.20 2.1-3.5 cm LA Diam: 4.40 2.7-3.8/3.0-4.0 cm LAIDs Index: 1.99 1.5-2.3 cm/m2 LV Mass: 323.79 67-162/88-224 g LV Mass Index: 146.51 43-95/49-115 g/m2 LVOT Diam: 2.10 3.0+(-)1.3 cm 2D Systolic Function EF 4C: 27.40 >55% EF 2C: 39.60 >55% Mitral Valve MV Pk E: 1.01 MV Decel Time: 123.00 E'Lateral: 12.10 E'Medial: 14.70 E/E' Med: 6.90 E/E' Lat: 8.30 PHT: 36.00 MVA PHT: 6.11 Decel Clark: 8.19 Aortic Valve AoV Pk Gabriel: 1.12 AoV Mn Gabriel: 0.73 AoV VTI: 0.21 AoV Pk Grad: 5.00 Aov Mn Grad: 3.00 HARDIK Cont.VTI: 2.65 LVOT LVOT Pk Gabriel: 0.91 LVOT Mn Gabriel: 0.57 LVOT VTI: 0.16 LVOT Pk Grad: 3.00 LVOT Mn Grad: 2.00 LVOT Diam: 2.10 LVOT Area: 3.46 Diastolic Function MV Pk E: 1.01 E'Medial: 14.70 E/E' Med: 6.90 E' Laterial: 12.10 E/E' Lat: 8.30 Tricuspid Valve TR Pk Gabriel: 2.95 TR Pk Grad: 35.00 RA Press: 15.00 RVSP: 50.00 Great Vessels Aorta Ao Root-2D: 3.20 2.0-3.7 cm Pulmonary Valve PV Pk Gabriel: 0.84 Peak PV Grad: 3.00 Updated in Other Vendor System with Status of Final Blayne Campbell MD electronically signed on 07/30/2020 4:04:28 PM with status of Final
[2020-07-30] MEDS: Amiodarone HCL 900 MG in 0.9 % Sodium Chloride 500 ML 34.53 MG IVCONT (11:35)
[2020-07-30] MEDS: Alteplase Cath Clear 2 MG VIAL INTRACATH (11:39)
[2020-07-30 12:29] LABS: Hematocrit 29.8 % (42-52); Hemoglobin 9.3 g/dl (14.0-18.0); Mean Corpuscular HGB Conc 31.2 g/dl (31.0-36.0); Mean Corpuscular Hemoglobin 27.6 pg (27.0-33.0); Mean Corpuscular Volume 88.4 fL (80-98); Mean Platelet Volume 9.7 fL (9.4-12.4); Platelet Count 235 X10*3/uL (160-400); Red Blood Count 3.37 X10*6/uL (4.60-5.80); White Blood Count 18.7 X10*3/uL (4.8-10.8)
[2020-07-30 12:39] LABS: INTERNATIONAL NORM RATIO 1.1 (0.9-1.1); Prothrombin Time 12.7 SEC (10.8-13.0)
[2020-07-30 12:41] LABS: PTT Heparin Drip 30.5 SEC (53-77.9)
[2020-07-30] MEDS: Heparin Sodium,Porcine 5,000 UNIT/ML VIAL 7960 UNIT IVPUSH (12:54)
[2020-07-30] MEDS: Heparin Sodium,Porcine/1/2NS 25,000 UNIT/250 ML IV.SOLN 13.93 UNIT IVCONT (12:56)
--- NOTE | 2020-07-30 13:22 | ECG_ITS ---
Test Reason : RHYTHM CHAMGE Blood Pressure : / mmHG Vent. Rate : 090 BPM Atrial Rate : 090 BPM P-R Int : 180 ms QRS Dur : 100 ms QT Int : 428 ms P-R-T Axes : 053 -17 -24 degrees QTc Int : 523 ms Normal sinus rhythm Low voltage QRS ST elevation in Lateral leads Inferior infarct , age undetermined Prolonged QT Abnormal ECG When compared with ECG of 30-JUL-2020 00:30, Premature ventricular complexes are no longer Present Referred By: Blayne Campbell Electronically Signed By:HOANG PHELAN MD
[2020-07-30 13:33] LABS: Troponin-I High Sensitivity 1254.9 ng/L (<3.5-35.0)
--- NOTE | 2020-07-30 13:46 | PC.NURSE ---
Addendum entered by Jerilyn Aguilera RN 07/30/20 14:17: AMIO GTT D/C'ED AT 1413. Original Note: PT HAD A 2 MINUTE VTACH FROM [id number], VTACH BROKE ON ITS OWN. RN AND MD BEDSIDE. PACER PADS APPLIED. ORDERED LOADING DOSE AND CONTINUOUS AMIODARONE GTT. LABS ORDERED AND DRAWN: CBC, TROP, AND PTT TO START HEPARING GTT. RECTAL ASPIRIN ORDERED AND ADMINISTERED. PTT-HD CAME BACK AT 30.5, BOLUS OF 80 UNITS/KG ADMINISTERED, AND HEPARIN GTT STARTED AT 14 UNITS/KG/HR. DOSING WEIGHT 99.5 KG. NEXT PTT-HD TO BE DRAWN AT 1900. CARDIOLOGY CONSULTED AND BEDSIDE. EKG X 2 AND ECHO PERFORMED. CRITICAL TROP: 1254.9, NOTIFIED, NO NEW ORDERS: TRENDING DOWN.
--- NOTE | 2020-07-30 15:27 | PM.CNCAR ---
History of Present Illness History of Present Illness Date of Service: 07/30/20 Requesting physician: Abel Breen Chief complaint: Ventricular tachycardia, Cardiomyopathy Narrative: 70-year-old gentleman who was admitted for change in mental status and confusion. He was high also noted to be hypothermic. CT scan showed concern for bilateral pneumonia and has been on antibiotics for atypical pneumonia and has been on doxycycline. He was initially intubated p.o. daily for airway protection due to confusion and was extubated recently. He has been on positive-pressure noninvasive ventilation. He was noticed to have multiple runs of ventricular tachycardia today. This led to an echocardiogram which showed EF of 20-25%. His cardiac enzymes are abnormal with that high sensitivity troponin levels of 1384, 1513, 1254. his ECG showing prolonged QTC of approximately 523 milliseconds. He has some lateral ST elevations which has been present since the ECG from midnight. He is confused and somnolent and is unable to give any history. As per my discussion with the ICU attending, he wakes up and is quite agitated when he is up. He has background of schizoaffective disorder. No history is available from patient right now. Review of Systems Review of Systems: Yes Unobtainable due to mental status PMFSH Past Medical History Medical History Abnormality of gait and mobility Anxiety Cellulitis of left leg Chronic kidney disease (CKD) 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 Dysphagia Gout Hypertension Hypothyroidism Lymphedema Major depression, recurrent Mesenteric lymphadenitis Mood disorder Muscle weakness (generalized) Non Hodgkin's lymphoma Non-Hodgkin lymphoma Schizoaffective disorder, bipolar type Social History Social History Household Members: Unknown / Unable to assess Housing: Retirement Smoking Status: Unknown if ever smoked Use of substances other than those prescribed or required for medical reasons: Unable to respond Currently Displaying Signs/Symptoms of Drug Intoxication Withdrawal: No Advance Directives: No Advance Directives Information Provided: No Advance Directives on File: No Do you have thoughts of harming others: None Do you have a plan to hurt others: No Plan Recently lost weight without trying: Unsure service: No Current occupational status: employed Meds Allergies Allergy/AdvReac Type Severity Reaction Status Date / Time prochlorperazine Allergy Unknown unknown Verified 07/25/20 10:15 Home Medications Medication Instructions Recorded Confirmed Type acetaminophen [Tylenol] 650 mg PO Q6H PRN 07/25/20 07/25/20 History betamethasone dipropionate 1 applic TOPICAL BID 07/25/20 07/25/20 History bisacodyl [Dulcolax (bisacodyl)] 10 mg IN DAILY PRN 07/25/20 07/25/20 History escitalopram oxalate 5 mg PO DAILY 07/25/20 07/25/20 History gabapentin 100 mg PO TID 07/25/20 07/25/20 History levothyroxine 100 mcg PO DAILY 07/25/20 07/25/20 History magnesium hydroxide [Milk of 400 mg PO DAILY PRN 07/25/20 07/25/20 History Magnesia] morphine 30 mg PO Q12H 07/25/20 07/25/20 History oxycodone 10 mg PO Q4H PRN 07/25/20 07/25/20 History spironolactone 25 mg PO DAILY 07/25/20 07/25/20 History trazodone 50 mg PO BEDTIME 07/25/20 07/25/20 History Physical Exam Vital Signs: Vital Signs: Last Vital Signs Temp 98.6 F 07/30/20 14:57 Pulse 100 07/30/20 14:57 Resp 35 H 07/30/20 14:57 BP 119/76 07/30/20 14:57 Pulse Ox 100 07/30/20 14:57 Body Mass Index 28.9 GENERAL APPEARANCE: Sleepy, arousable, on CPAP. HEENT: unremarkable. HEAD: normocephalic, atraumatic. NECK/THYROID: no carotid bruit, No obvious JVD noticed. HEART: no murmurs, irregular rhythm due to PVCs, S1, S2 normal. LUNGS: clear to auscultation bilaterally. ABDOMEN: normal, bowel sounds present, soft, nontender, nondistended. EXTREMITIES: mild edema. PERIPHERAL PULSES: equal. NEUROLOGIC: somnolent and not arousable. Results Labs and Meds Result diagrams: 07/30/20 12:16 07/30/20 05:40 Lab results: Laboratory Results - last 24 hr 07/25/20 07/29/20 07/30/20 17:48 19:26 00:42 WBC RBC Hgb Hct MCV MCH MCHC RDW Plt Count MPV Immature Gran % (Auto) Neut % (Auto) Lymph % (Auto) [place] % (Auto) Eos % (Auto) Baso % (Auto) Lymph # (Auto) [place] # (Auto) Eos # (Auto) Baso # (Auto) Abs Immat Gran (auto) Absolute Neuts (auto) Absolute Nucleated RBC Nucleated RBC % (auto) Smear Tech's Comments PT INR PTT (Heparin Protocol) VBG pH VBG pCO2 VBG pO2 VBG HCO3 VBG O2 Saturation VBG Base Excess Sodium 148 H Potassium 4.5 Chloride 116 H Carbon Dioxide 12 L Anion Gap 25 H BUN 35 H Creatinine 1.27 Estim Creat Clear Calc 66.2 Estimated GFR 56 Random Glucose 129 H D Calcium 8.4 Phosphorus Magnesium 2.1 Troponin I High Sens 1384.1 H D Albumin Ur L.pneumophila Ag Not Detected 07/30/20 07/30/20 07/30/20 00:42 04:03 05:40 WBC 18.6 H RBC 3.60 L Hgb 9.9 L Hct 31.7 L MCV 88.1 MCH 27.5 MCHC 31.2 RDW 17.8 H Plt Count 248 MPV 10.0 Immature Gran % (Auto) 2.1 H Neut % (Auto) 77.4 H Lymph % (Auto) 9.1 L [place] % (Auto) 10.7 Eos % (Auto) 0.5 Baso % (Auto) 0.2 Lymph # (Auto) 1.7 [place] # (Auto) 2.0 H Eos # (Auto) 0.1 Baso # (Auto) 0.0 Abs Immat Gran (auto) 0.39 H Absolute Neuts (auto) 14.4 H Absolute Nucleated RBC 0.000 Nucleated RBC % (auto) 0.0 Smear Tech's Comments VERIFIED PT INR PTT (Heparin Protocol) VBG pH 7.39 VBG pCO2 24 VBG pO2 38 VBG HCO3 12 VBG O2 Saturation 70.2 VBG Base Excess -12.5 Sodium Potassium Chloride Carbon Dioxide Anion Gap BUN Creatinine Estim Creat Clear Calc Estimated GFR Random Glucose Calcium Phosphorus Magnesium Troponin I High Sens 1513.0 H Albumin Ur L.pneumophila Ag 07/30/20 07/30/20 07/30/20 05:40 05:40 12:16 WBC RBC Hgb Hct MCV MCH MCHC RDW Plt Count MPV Immature Gran % (Auto) Neut % (Auto) Lymph % (Auto) [place] % (Auto) Eos % (Auto) Baso % (Auto) Lymph # (Auto) [place] # (Auto) Eos # (Auto) Baso # (Auto) Abs Immat Gran (auto) Absolute Neuts (auto) Absolute Nucleated RBC Nucleated RBC % (auto) Smear Tech's Comments PT INR PTT (Heparin Protocol) VBG pH 7.36 VBG pCO2 23 VBG pO2 45 VBG HCO3 13 VBG O2 Saturation 81.9 VBG Base Excess -10.9 Sodium 147 H Potassium 4.1 Chloride 116 H Carbon Dioxide 13 L Anion Gap 22 H BUN 40 H Creatinine 1.29 Estim Creat Clear Calc 66.1 Estimated GFR 55 Random Glucose 118 H Calcium 8.6 Phosphorus 3.9 Magnesium 2.2 Troponin I High Sens 1254.9 H Albumin 3.4 L Ur L.pneumophila Ag 07/30/20 07/30/20 12:16 12:16 WBC 18.7 H RBC 3.37 L Hgb 9.3 L Hct 29.8 L MCV 88.4 MCH 27.6 MCHC 31.2 RDW 18.0 H Plt Count 235 MPV 9.7 Immature Gran % (Auto) Neut % (Auto) Lymph % (Auto) [place] % (Auto) Eos % (Auto) Baso % (Auto) Lymph # (Auto) [place] # (Auto) Eos # (Auto) Baso # (Auto) Abs Immat Gran (auto) Absolute Neuts (auto) Absolute Nucleated RBC 0.000 Nucleated RBC % (auto) 0.0 Smear Tech's Comments PT 12.7 INR 1.1 PTT (Heparin Protocol) 30.5 L VBG pH VBG pCO2 VBG pO2 VBG HCO3 VBG O2 Saturation VBG Base Excess Sodium Potassium Chloride Carbon Dioxide Anion Gap BUN Creatinine Estim Creat Clear Calc Estimated GFR Random Glucose Calcium Phosphorus Magnesium Troponin I High Sens Albumin Ur L.pneumophila Ag EKG Interpretation EKG Comments: EKGs reviewed. Echocardiography reviewed- showing EF of 20 25%. The basal and apical segments are moving normally with mid ventricular segments akinesis. I think this is a mid ventricular takotsubo variant by echocardiography. Assessment and Plan (1) Ventricular tachycardia: Status: Acute (2) Prolonged QT interval: Status: Acute (3) Cardiomyopathy: Status: Acute 70-year-old gentleman who is admitted for hypothermia and confusion and was being treated for multilobar pneumonia with doxycycline. He started having ventricular tachycardia on telemetry. This was self-limiting. He was given amiodarone after that. He has ECGs are showing prolonged QTC and the lateral ST elevations. His troponin I levels are flat but mildly elevated. His echocardiography is showing changes consistent with a mid ventricular takotsubo variant. Takotsubo is a diagnosis of exclusion and he will need ischemic evaluation in the form a cardiac catheterization. Having said that currently he is in no shape to undergo any procedures. I think we treat him with heparin for 48 hours. I think we also repeat his echocardiography in 2 days. In the meantime if he has any hemodynamic changes then he may need to be transferred and undergo emergent cardiac catheterization. Like documented above he has significant confusion when he wakes up he is very agitated as per the ICU team report. I do not think he should go to cardiac catheterization lab right now. If his blood pressure allows then we should try low-dose of carvedilol. For ventricular tachycardia he was on amiodarone but due to prolonged QT interval I think amiodarone should not be continued further. QT interval gets prolonged in Takotsubo Cardiomyopathy and I think it is probably prolonged due to that but giving amiodarone which can prolong it further in my opinion is not safe (although risk of TdP with Amiodarone is very low in general). I think we should use lidocaine if required for episodes of ventricular tachycardia. We will follow along with you. Thank you for allowing me to participate in the care of your patient. Please feel free to contact me if you have any questions.
[2020-07-30] MEDS: Doxycycline Hyclate 100 MG in 0.9 % Sodium Chloride 250 ML 167.67 MG IV (15:56)
--- NOTE | 2020-07-30 16:34 | PC.NURSE ---
PRECEDEX GTT TURNED OFF AT 1553 PER MD. SITTER BEDSIDE. BIPAP MASK CHANGED BY RT. ORAL CARE GIVEN BY RN. BRIDGE OF NOSE NOTED TO BE RED AND SLOW TO AIXA, DUODERM APPLIED TO BRIDGE OF NOSE PRIOR TO NEW MASK PLACEMENT. LEFT LEG DRESSING CHANGED BY RN. MD BEDSIDE TO ASSESS. RE-WRAPPED FOR PROTECTION. PINK FOAM APPLIED TO LEFT HAND FOR NOTED SKIN TEAR.
--- NOTE | 2020-07-30 16:51 | PM.CCPN ---
Subjective Subjective Date of Service: 07/30/20 Interval History: 70-year-old gentleman with underlying history of non-Hodgkin's lymphoma, CLL, schizoaffective disorder admitted on 07/25/2020 with alteration of mental status requiring intubation for airway protection in the emergency room. Encephalitis workup negative including CSF studies. CT head with no acute findings. Possible unintentional opioid overdose. Extubated 07/28/2020. Now with acute cardiomyopathy, episodes of ventricular tachycardia, poorly improving mental status. Overnight with several episodes of ventricular tachycardia, loaded with amiodarone. Physical Exam Vital Signs: Vital Signs: Last Vital Signs Temp 98.8 F 07/30/20 16:00 Pulse 101 H 07/30/20 16:00 Resp 26 H 07/30/20 16:00 BP 123/90 H 07/30/20 16:00 Pulse Ox 99 07/30/20 16:00 Body Mass Index 28.9 Const: General: no acute distress and lethargic ( Intermittently agitated) Orientation/consciousness: lethargic ( Intermittently agitated) Eyes: Sclerae: sclerae normal Neck: Neck: Yes no lymphadenopathy, Yes trachea midline and Yes supple Resp: Effort & Inspection: normal respiratory effort and no respiratory distress Auscultation: crackles ( bibasilar) Cardio: Rate: regular rate and tachycardic Rhythm: abnormal rhythm with ectopic beats Heart sounds: no gallops, no murmurs and no rubs GI: Palpation (GI): Soft to palpation and Other GI palpation findings present ( Nontender) Auscultation: normal bowel sounds Extrem: General: No clubbing, No cyanosis, Yes edema ( trace bilateral) and Yes other ( left lower west with chronic appearing wound) Objective Data Labs CBC & Chem 7: 07/30/20 12:16 07/30/20 05:40 Labs: Laboratory Results - last 24 hr 07/25/20 07/29/20 07/30/20 17:48 19:26 00:42 WBC RBC Hgb Hct MCV MCH MCHC RDW Plt Count MPV Immature Gran % (Auto) Neut % (Auto) Lymph % (Auto) [place] % (Auto) Eos % (Auto) Baso % (Auto) Lymph # (Auto) [place] # (Auto) Eos # (Auto) Baso # (Auto) Abs Immat Gran (auto) Absolute Neuts (auto) Absolute Nucleated RBC Nucleated RBC % (auto) Smear Tech's Comments PT INR PTT (Heparin Protocol) VBG pH VBG pCO2 VBG pO2 VBG HCO3 VBG O2 Saturation VBG Base Excess Sodium 148 H Potassium 4.5 Chloride 116 H Carbon Dioxide 12 L Anion Gap 25 H BUN 35 H Creatinine 1.27 Estim Creat Clear Calc 66.2 Estimated GFR 56 Random Glucose 129 H D Calcium 8.4 Phosphorus Magnesium 2.1 Troponin I High Sens 1384.1 H D Albumin Ur L.pneumophila Ag Not Detected 07/30/20 07/30/20 07/30/20 00:42 04:03 05:40 WBC 18.6 H RBC 3.60 L Hgb 9.9 L Hct 31.7 L MCV 88.1 MCH 27.5 MCHC 31.2 RDW 17.8 H Plt Count 248 MPV 10.0 Immature Gran % (Auto) 2.1 H Neut % (Auto) 77.4 H Lymph % (Auto) 9.1 L [place] % (Auto) 10.7 Eos % (Auto) 0.5 Baso % (Auto) 0.2 Lymph # (Auto) 1.7 [place] # (Auto) 2.0 H Eos # (Auto) 0.1 Baso # (Auto) 0.0 Abs Immat Gran (auto) 0.39 H Absolute Neuts (auto) 14.4 H Absolute Nucleated RBC 0.000 Nucleated RBC % (auto) 0.0 Smear Tech's Comments VERIFIED PT INR PTT (Heparin Protocol) VBG pH 7.39 VBG pCO2 24 VBG pO2 38 VBG HCO3 12 VBG O2 Saturation 70.2 VBG Base Excess -12.5 Sodium Potassium Chloride Carbon Dioxide Anion Gap BUN Creatinine Estim Creat Clear Calc Estimated GFR Random Glucose Calcium Phosphorus Magnesium Troponin I High Sens 1513.0 H Albumin Ur L.pneumophila Ag 07/30/20 07/30/20 07/30/20 05:40 05:40 12:16 WBC RBC Hgb Hct MCV MCH MCHC RDW Plt Count MPV Immature Gran % (Auto) Neut % (Auto) Lymph % (Auto) [place] % (Auto) Eos % (Auto) Baso % (Auto) Lymph # (Auto) [place] # (Auto) Eos # (Auto) Baso # (Auto) Abs Immat Gran (auto) Absolute Neuts (auto) Absolute Nucleated RBC Nucleated RBC % (auto) Smear Tech's Comments PT INR PTT (Heparin Protocol) VBG pH 7.36 VBG pCO2 23 VBG pO2 45 VBG HCO3 13 VBG O2 Saturation 81.9 VBG Base Excess -10.9 Sodium 147 H Potassium 4.1 Chloride 116 H Carbon Dioxide 13 L Anion Gap 22 H BUN 40 H Creatinine 1.29 Estim Creat Clear Calc 66.1 Estimated GFR 55 Random Glucose 118 H Calcium 8.6 Phosphorus 3.9 Magnesium 2.2 Troponin I High Sens 1254.9 H Albumin 3.4 L Ur L.pneumophila Ag 07/30/20 07/30/20 12:16 12:16 WBC 18.7 H RBC 3.37 L Hgb 9.3 L Hct 29.8 L MCV 88.4 MCH 27.6 MCHC 31.2 RDW 18.0 H Plt Count 235 MPV 9.7 Immature Gran % (Auto) Neut % (Auto) Lymph % (Auto) [place] % (Auto) Eos % (Auto) Baso % (Auto) Lymph # (Auto) [place] # (Auto) Eos # (Auto) Baso # (Auto) Abs Immat Gran (auto) Absolute Neuts (auto) Absolute Nucleated RBC 0.000 Nucleated RBC % (auto) 0.0 Smear Tech's Comments PT 12.7 INR 1.1 PTT (Heparin Protocol) 30.5 L VBG pH VBG pCO2 VBG pO2 VBG HCO3 VBG O2 Saturation VBG Base Excess Sodium Potassium Chloride Carbon Dioxide Anion Gap BUN Creatinine Estim Creat Clear Calc Estimated GFR Random Glucose Calcium Phosphorus Magnesium Troponin I High Sens Albumin Ur L.pneumophila Ag Microbiology Microbiology Results: Microbiology 07/25/20 10:28 Blood - Venous Blood Culture - Final Coagulase-neg Staphyloccocus 07/25/20 10:59 Blood - Venous Blood Culture - Final No growth after 5 days. 07/25/20 15:07 Cerebrospinal Fluid Gram Stain - Final 07/25/20 15:07 Cerebrospinal Fluid CSF Examination - Final 07/25/20 15:07 Cerebrospinal Fluid Gross Specimen Examination - Final 07/25/20 15:07 Cerebrospinal Fluid CSF Culture - Final No growth after 3 days. 07/25/20 17:48 Urine Catheterized - Hill Catheter Urine Culture - Final No growth. 07/25/20 17:48 Sputum - Suctioned Gram Stain - Final 07/25/20 17:48 Sputum - Suctioned Sputum Culture - Final Progress Note: A&P Assessment and plan (1) Metabolic acidosis: Status: Acute Assessment and Plan: Assessment: 70-year-old gentleman with underlying history of remote non-Hodgkin's lymphoma and CLL, also schizoaffective disorder admitted with acute alteration of mental status of unclear etiology requiring intubation and ventilatory support for airway protection, further complicated by acute cardiomyopathy and episodes of ventricular tachycardia. Plan: Neuro: Acute encephalopathy of unclear etiology, possible unintentional opioid overdose. Now improving slowly. Continue to monitor. Cardiac: Overnight with episodes of ventricular tachycardia, this a.m. echo with an acute cardiomyopathy. Cardiology service care appreciated. Likely underlying Takotsubo's. Will continue with heparin drip and aspirin for the next 48 hours as per Cardiology recommendations. Will avoid amiodarone with prolonged QT and use lidocaine as needed. Pulmonary: Acute respiratory failure requiring ventilatory support. Extubated 07/28/2020. Intermittently requiring BiPAP support. Continue to titrate off supplemental oxygen as tolerated. Renal: No acute issues. Endo: No acute issues. GI: No acute issues. ID: No evidence of encephalitis. Left lower lobe infiltrate, empirically covered with doxycycline for predominantly Gram-positive cocci on sputum Gram stain. No evidence of bacteremia, early coagulase negative Staph blood culture is a contaminant. Heme/Onc: No acute issues. Psych: No acute issues. Miscellaneous: No acute issues. Prophylaxis: Lovenox, does not require GI prophylaxis Diet: pending swallow evaluation Critical care time spent: 90 minutes (2) Cardiomyopathy: Status: Acute (3) Ventricular tachycardia: Status: Acute (4) Acute metabolic encephalopathy: Status: Acute Time Spent With Patient Time: Total time spent is greater than 50% in coordination of care (as documented) at patient's floor/unit and/or counseling patient: Total time spent with greater than 50% in coordination of care (as documented) at patient's floor/unit and/or counseling patient:: 0 Critical Care Time Critical Care Time (minutes): 90
[2020-07-30 19:51] LABS: PTT Heparin Drip 93.3 SEC (53-77.9)
[2020-07-30 20:20] LABS: Anion Gap 23 (12-20); Blood Urea Nitrogen 43 mg/dL (9-16); Calcium 9.2 mg/dL (8.4-10.2); Carbon Dioxide 14 mmol/L (22-29); Chloride 118 mmol/L (96-108); Creatinine Clr Calc Pharmacy 57.6; Estimated Glomerular Filt Rate 47; Glucose Random 115 mg/dL (60-115); Potassium 3.6 mmol/l (3.3-5.1); Sodium 151 mmol/L (135-145)
[2020-07-30] MEDS: LORazepam 2 MG/ML VIAL 1 MG IVPUSH (21:11)
[2020-07-30] MEDS: Chlorhexidine Gluc Oral Rinse 15 ML MOUTHWASH BUCCAL (21:11)
[2020-07-30] MEDS: propofoL 1,000 MG/100 ML VIAL 29.85 MG IVCONT (22:30)
--- NOTE | 2020-07-30 22:56 | W.PM.CCHP ---
Procedures Intubation Intubation Comments: Patient with acute respiratory distress, refractory to CPAP, requiring emergent intubation for hypoxemia and worsening mental status. Patient difficult intubation, ED physician Dr. Gonzalez in to assist, due to patient noted to have significant amount of tissue covering the airway region. Able to suction some dark brown secretion and moved some tissue to side in order to visualize vocal cords using GlideScope. Patient intubated with 7.5 cuffed ET tube with visualization of vocal cords, without immediate complications. ET tube position verified with Chest XRAY. Consent for Procedure: Emergent-no informed consent obtained Sedative: propofol Mg given: 100 Paralytic: rocuronium Mg given: 50 Laryngoscope: fiber optic video scope ET tube size: 7.5 ET tube uncuffed: No Tube secured depth (cm): 26 Tube secured location: lips Tube placement confirmation: visualized tube passing through cords and equal breath sounds bilaterally
[2020-07-31] VITALS (29 sets, daily range): BP systolic 81–151; BP diastolic 54–88; PULSE 68–142; RESP 25–38; TEMP 36–37.3; O2SAT 96–163; BMI 26.2
--- NOTE | 2020-07-31 | ECG_ITS ---
Test Reason : FREG PVCS
[2020-07-31] MEDS: Chlorhexidine Gluc Oral Rinse 15 ML MOUTHWASH BUCCAL ×5 (00:31→20:36)
[2020-07-31] MEDS: Rocuronium Bromide 50 MG/5 ML VIAL IVPUSH (00:31)
[2020-07-31] MEDS: propofoL 1,000 MG/100 ML VIAL 29.85 MG IVCONT ×8 (00:32→22:30)
[2020-07-31] MEDS: fentaNYL citrate/NS 1,000 MCG/100 ML PLAST..BAG 10 MCG IVCONT (02:03)
[2020-07-31] MEDS: Doxycycline Hyclate 100 MG in 0.9 % Sodium Chloride 250 ML 168 MG IV (02:30)
[2020-07-31] MEDS: Albumin Human 25 % 100 ML IV (02:30)
[2020-07-31 04:40] LABS: Basophils Percent Auto 0.2 % (0-2); Eosinophils Absolute Auto 0.1 X10*3/uL (0.0-0.4); Eosinophils Percent Auto 0.4 % (0-4); Hematocrit 27.3 % (42-52); Hemoglobin 8.5 g/dl (14.0-18.0); Imm Gran Abs Auto 0.81 X10*3/uL (0.00-0.03); Imm Gran Pct Auto 4.8 % (0.0-0.4); Lymphocytes Absolute Auto 2.4 X10*3/uL (1.2-4.9); Lymphocytes Percent Auto 14.1 % (20-40); MANUAL DIFF FLAG SCAN; Mean Corpuscular HGB Conc 31.1 g/dl (31.0-36.0); Mean Corpuscular Hemoglobin 27.7 pg (27.0-33.0); Mean Corpuscular Volume 88.9 fL (80-98); Mean Platelet Volume 9.8 fL (9.4-12.4); Monocytes Absolute Auto 2.4 X10*3/uL (0.1-1.2); Monocytes Percent Auto 14.1 % (2-11); Neutrophils Absolute Auto 11.3 X10*3/uL (2.0-8.3); Neutrophils Percent Auto 66.4 % (45-73); Platelet Count 233 X10*3/uL (160-400); Red Blood Count 3.07 X10*6/uL (4.60-5.80); SCAN SMEAR FLAG 1
[2020-07-31 04:47] LABS: INTERNATIONAL NORM RATIO 1.1 (0.9-1.1); Prothrombin Time 13.4 SEC (10.8-13.0)
[2020-07-31 04:50] LABS: PTT Heparin Drip 49.3 SEC (53-77.9)
[2020-07-31 04:57] LABS: SLIDE REVIEW VERIFIED
[2020-07-31 05:05] LABS: PCO2 VBG 42 mmhg
[2020-07-31 05:06] LABS: HCO3 VBG 20 mmol/L; Oxygen Saturation VBG 46.7 %; PO2 VBG 26 mmhg
[2020-07-31 05:18] LABS: Alanine Aminotransferase 10 U/L (0-40); Albumin Level 4.2 g/dL (3.5-5.0); Alkaline Phosphatase 89 U/L (39-117); Anion Gap 17 (12-20); Aspartate Amino Transferase 14 U/L (5-37); Bilirubin Total 0.6 mg/dL (0.0-1.0); Blood Urea Nitrogen 46 mg/dL (9-16); Calcium 9.2 mg/dL (8.4-10.2); Carbon Dioxide 19 mmol/L (22-29); Chloride 118 mmol/L (96-108); Creatinine Clr Calc Pharmacy 53.3; Estimated Glomerular Filt Rate 43; Glucose Random 118 mg/dL (60-115); Magnesium 2.3 mg/dL (1.6-2.6); Phosphorus 3.3 mg/dL (2.7-4.5); Potassium 3.6 mmol/l (3.3-5.1); Sodium 150 mmol/L (135-145); Total Protein 6.2 g/dL (6.5-8.0)
[2020-07-31] MEDS: Heparin Sodium,Porcine 5,000 UNIT/ML VIAL 3980 UNIT IVPUSH (05:38)
[2020-07-31] MEDS: 0.9 % Sodium Chloride Flush 3 ML SYRINGE IVFLUSH ×2 (07:11→15:50)
[2020-07-31] MEDS: fentaNYL citrate/NS 1,000 MCG/100 ML PLAST..BAG 15 MCG IVCONT ×3 (07:12→20:36)
[2020-07-31] MEDS: Albuterol/Iprat 2.5/0.5MG 3 ML AMPUL.NEB INHALE ×2 (07:56→20:02)
--- NOTE | 2020-07-31 08:56 | XR_ITS ---
EXAMINATION: XR CHEST CLINICAL INFORMATION: Oral gastric tube placement. COMPARISON: 07/30/2020 TECHNIQUE: Frontal view of the chest was obtained. FINDINGS: Endotracheal tube is in satisfactory position at 4 cm above the jael. The tip of the right IJ catheter overlies the right atrium and is unchanged in position. No pneumothorax. The enteric tube courses along the esophagus, into the stomach and beyond the [id number]. Cardiac silhouette is normal in size. Patchy bilateral pulmonary opacities are unchanged. No pleural effusion. The visualized bones are intact. No pneumoperitoneum. XR/XR chest 1V IMPRESSION: * Endotracheal tube in satisfactory position at 4 cm above the jael. * No significant change in appearance of multilobar pneumonia. * The enteric tube courses into the stomach and beyond the [id number].
[2020-07-31] MEDS: Levothyroxine Sodium 100 MCG VIAL 50 MCG IVPUSH (09:15)
[2020-07-31] MEDS: Heparin Sodium,Porcine/1/2NS 25,000 UNIT/250 ML IV.SOLN 12.94 UNIT IVCONT (09:28)
--- NOTE | 2020-07-31 11:08 | ECG_ITS ---
Test Reason : QTC Blood Pressure : / mmHG Vent. Rate : 093 BPM Atrial Rate : 093 BPM P-R Int : 184 ms QRS Dur : 086 ms QT Int : 424 ms P-R-T Axes : 056 -19 139 degrees QTc Int : 527 ms Sinus rhythm with occasional Premature atrial complexes Left axis deviation Low voltage QRS Intra-ventricular conduction delay Inferior infarct (cited on or before 25-JUL-2020) ST & T wave abnormality, consider lateral ischemia Abnormal ECG When compared with ECG of 30-JUL-2020 13:29, Fusion complexes are no longer Present Right bundle branch block is no longer Present ST less elevated in Lateral leads T wave inversion now evident in Lateral leads Referred By: Abel Breen Electronically Signed By:HOANG PHELAN MD
--- NOTE | 2020-07-31 11:19 | P.PNCA_ITS ---
Subjective Subjective Date of Service: 07/31/20 Interval history: Sedated and intubated. Off and on use of low dose levophed. Tele showing runs of PAT. Review of Systems Review of Systems Yes Unobtainable due to mental status Physical Exam Vital Signs: Last Vital Signs Temp 97.3 F 07/31/20 11:00 Pulse 97 07/31/20 11:00 Resp 29 H 07/31/20 11:00 BP 128/81 07/31/20 11:00 Pulse Ox 99 07/31/20 11:00 Body Mass Index 26.2 GENERAL APPEARANCE: intubated and sedated. NECK/THYROID: no carotid bruit, no jugular venous distention. SKIN: warm and dry. HEART: no murmurs, regular rate and rhythm, S1, S2 normal. LUNGS: Crackles left lung. ABDOMEN: normal, bowel sounds present, soft, nondistended. EXTREMITIES: Edema left leg, PERIPHERAL PULSES: equal. NEUROLOGIC: Sedated. Results Labs and Meds Result diagrams: 07/31/20 04:29 07/31/20 04:28 Lab results: Laboratory Results - last 24 hr 07/30/20 07/30/20 07/30/20 12:16 12:16 12:16 WBC 18.7 H RBC 3.37 L Hgb 9.3 L Hct 29.8 L MCV 88.4 MCH 27.6 MCHC 31.2 RDW 18.0 H Plt Count 235 MPV 9.7 Immature Gran % (Auto) Neut % (Auto) Lymph % (Auto) Ritchie % (Auto) Eos % (Auto) Baso % (Auto) Lymph # (Auto) Ritchie # (Auto) Eos # (Auto) Baso # (Auto) Abs Immat Gran (auto) Absolute Neuts (auto) Absolute Nucleated RBC 0.000 Nucleated RBC % (auto) 0.0 Smear Tech's Comments PT 12.7 INR 1.1 PTT (Heparin Protocol) 30.5 L VBG pH VBG pCO2 VBG pO2 VBG HCO3 VBG O2 Saturation VBG Base Excess Sodium Potassium Chloride Carbon Dioxide Anion Gap BUN Creatinine Estim Creat Clear Calc Estimated GFR Random Glucose Calcium Phosphorus Magnesium Total Bilirubin AST ALT Alkaline Phosphatase Troponin I High Sens 1254.9 H Total Protein Albumin 07/30/20 07/30/20 07/31/20 19:08 19:08 04:28 WBC RBC Hgb Hct MCV MCH MCHC RDW Plt Count MPV Immature Gran % (Auto) Neut % (Auto) Lymph % (Auto) Ritchie % (Auto) Eos % (Auto) Baso % (Auto) Lymph # (Auto) Ritchie # (Auto) Eos # (Auto) Baso # (Auto) Abs Immat Gran (auto) Absolute Neuts (auto) Absolute Nucleated RBC Nucleated RBC % (auto) Smear Tech's Comments PT INR PTT (Heparin Protocol) 93.3 H D VBG pH VBG pCO2 VBG pO2 VBG HCO3 VBG O2 Saturation VBG Base Excess Sodium 151 H 150 H Potassium 3.6 3.6 Chloride 118 H 118 H Carbon Dioxide 14 L 19 L Anion Gap 23 H 17 BUN 43 H 46 H Creatinine 1.48 H 1.60 H Estim Creat Clear Calc 57.6 53.3 Estimated GFR 47 43 Random Glucose 115 118 H Calcium 9.2 D 9.2 Phosphorus 3.3 Magnesium 2.3 Total Bilirubin 0.6 AST 14 ALT 10 Alkaline Phosphatase 89 D Troponin I High Sens Total Protein 6.2 L Albumin 4.2 D 07/31/20 07/31/20 07/31/20 04:28 04:28 04:29 WBC 17.0 H RBC 3.07 L Hgb 8.5 L Hct 27.3 L MCV 88.9 MCH 27.7 MCHC 31.1 RDW 18.0 H Plt Count 233 MPV 9.8 Immature Gran % (Auto) 4.8 H Neut % (Auto) 66.4 Lymph % (Auto) 14.1 L Ritchie % (Auto) 14.1 H Eos % (Auto) 0.4 Baso % (Auto) 0.2 Lymph # (Auto) 2.4 Ritchie # (Auto) 2.4 H Eos # (Auto) 0.1 Baso # (Auto) 0.0 Abs Immat Gran (auto) 0.81 H Absolute Neuts (auto) 11.3 H Absolute Nucleated RBC 0.000 Nucleated RBC % (auto) 0.0 Smear Tech's Comments VERIFIED PT 13.4 H INR 1.1 PTT (Heparin Protocol) 49.3 L D VBG pH 7.30 L VBG pCO2 42 VBG pO2 26 VBG HCO3 20 VBG O2 Saturation 46.7 VBG Base Excess -6.0 Sodium Potassium Chloride Carbon Dioxide Anion Gap BUN Creatinine Estim Creat Clear Calc Estimated GFR Random Glucose Calcium Phosphorus Magnesium Total Bilirubin AST ALT Alkaline Phosphatase Troponin I High Sens Total Protein Albumin Progress Note: A&P Assessment and plan (1) Cardiomyopathy: Status: Acute (2) Prolonged QT interval: Status: Acute (3) Ventricular tachycardia: Status: Acute Assessment and Plan: [age] year old gentleman with schizoaffective disorderWas admitted with change in mental status and hypothermia. He has been on antibiotics for pneumonia. He developed ventricular tachycardia which led to echocardiography which is showing changes consistent with takotsubo cardiomyopathy. He has prolonged QTC which also goes along with Takotsubo Cardiomyopathy. He also received some amiodarone which has been stopped right now. He has not had further ventricular ectopy. His it is having some atrial ectopy off and on. He has been off and on on Levophed mostly after propofol was added. He is warm all over and does not have any skin mottling or signs of hypoperfusion. His neck veins are not distended. I think he can get some IV fluids to see if his kidney function and electrolytes improved. If he develops ventricular tachycardia again then I would use lidocaine as it shortness the QT interval. Continue heparin drip for 48 hours in case he had ACS. ACS can lead to Takotsubo Cardiomyopathy in some patients. Right now his ECHO is showing mid ventricular variant takotsubo. if his clinical situation improves significantly to the point that he can not tolerate procedures then we will do diagnostic cardiac catheterization on him. Thank you for allowing me to participate in the care of your patient. Please feel free to contact me if you have any questions. Fall Risk Details Current Medications: Current Medications Generic Name Dose Route Start Last Admin Trade Name Xochitl PRN Reason Stop Dose Admin Albuterol/Ipratropium 3 ml 07/25/20 20:00 07/31/20 07:56 Albuterol/Iprat 2.5/0.5mg 3 Ml Ampul.Neb INHALE 3 ml RQ6H WHILE AWAKE SERINA Administration Chlorhexidine Gluconate 15 ml 07/30/20 23:00 07/31/20 05:40 Chlorhexidine Gluc Oral Rinse 15 Ml Mouthwash BUCCAL 15 ml Q8H SERINA Administration Heparin Sodium (Porcine) 7,960 unit 07/30/20 11:59 07/30/20 12:54 Heparin Sodium,Porcine 5,000 Unit/Ml Vial 80 unit/kg (7960 unit) 7,960 unit IVPUSH Administration BOLUS PRN 80 unit/kg - Heparin Protocol Heparin Sodium (Porcine) 3,980 unit 07/30/20 11:59 07/31/20 05:38 Heparin Sodium,Porcine 5,000 Unit/Ml Vial 40 unit/kg (3980 unit) 3,980 unit IVPUSH Administration BOLUS PRN HEPARINPRO Heparin Sodium/Sodium Chloride 25,000 unit in 250 mls @ 0 mls/hr 07/30/20 12:00 07/31/20 09:28 IVCONT 13 units/kg/hr .Q0M SERINA 12.94 mls/hr Administration Protocol Per Protocol Propofol 1,000 mg in 100 mls @ 0 mls/hr 07/30/20 22:45 07/31/20 09:24 Diprivan IVCONT 50 mcg/kg/min .Q0M SERINA 29.85 mls/hr Administration Protocol Per Protocol Fentanyl 1,000 mcg in 100 mls @ 0 mls/hr 07/31/20 00:30 07/31/20 07:12 Sublimaze/Ns IVCONT 150 mcg/hr .Q0M SERINA 15 mls/hr Administration Protocol Per Protocol Dextrose 1,000 mls @ 50 mls/hr 07/31/20 12:00 D5w IVCONT .Q20H SERINA Levothyroxine Sodium 50 mcg 07/26/20 09:00 07/31/20 09:15 Levothyroxine Sodium 100 Mcg Vial IVPUSH 50 mcg DAILY SERINA Administration Lidocaine HCl 50 mg 07/30/20 19:37 Lidocaine Hcl/Pf 100 Mg/5 Ml Syringe IV Q15M PRN Heart Rate > 300 Naloxone HCl 0.2 mg 07/25/20 15:56 Naloxone Hcl 0.4 Mg/Ml Vial IVPUSH Q2M PRN Excessive sedation or RR < 8 Pharmacy Consult 1 each 07/25/20 14:13 Consult Rx Perform Med Rec MISCELLANE ONCE PRN Consult order Sodium Chloride 3 ml 07/25/20 16:00 07/31/20 07:11 0.9 % Sodium Chloride Flush 3 Ml Syringe IVFLUSH 3 ml QSHIFT SERINA Administration Time Spent With Patient Time: Total time spent is greater than 50% in coordination of care (as documented) at patient's floor/unit and/or counseling patient: Time with patient: 15 - 24 minutes
[2020-07-31] MEDS: Dextrose 5 % 1,000 ML 50 ML IVCONT (11:32)
--- NOTE | 2020-07-31 12:03 | P.PNCC_ITS ---
Subjective Subjective Date of Service: 07/31/20 Interval History: 70-year-old gentleman with underlying history of non-Hodgkin's lymphoma, CLL, schizoaffective disorder admitted on 07/25/2020 with alteration of mental status requiring intubation for airway protection in the emergency room. Encephalitis workup negative including CSF studies. CT head with no acute findings. Extubated 07/28/2020. Hospital course further complicated by development of acute cardiomyopathy ventricular tachycardia likely secondary to takotsubo stress cardiomyopathy acute kidney injury acute hypoxic respiratory failure requiring re-intubation on 07/30/2020. overnight with worsening respiratory distress requiring intubation and ventilatory support. Physical Exam Vital Signs: Vital Signs: Last Vital Signs Temp 97.3 F 07/31/20 11:00 Pulse 97 07/31/20 11:00 Resp 29 H 07/31/20 11:00 BP 128/81 07/31/20 11:00 Pulse Ox 99 07/31/20 11:00 Body Mass Index 26.2 Const: General: no acute distress and other ( Sedated on the vent) Eyes: Sclerae: sclerae normal Neck: Neck: Yes no lymphadenopathy, Yes trachea midline and Yes supple Resp: Auscultation: crackles ( bibasilar crackles) Cardio: Rate: regular rate and Other ( intermittent bursts of narrow complex tachycardia, self-limited) Rhythm: regular rhythm Heart sounds: no gallops, no murmurs and no rubs GI: Palpation (GI): Soft to palpation and Other GI palpation findings present ( Nontender) Auscultation: normal bowel sounds Extrem: General: No clubbing, No cyanosis and Yes edema ( trace pedal edema) Objective Data Labs CBC & Chem 7: 07/31/20 04:29 07/31/20 04:28 Labs: Laboratory Results - last 24 hr 07/30/20 07/30/20 07/30/20 12:16 12:16 12:16 WBC 18.7 H RBC 3.37 L Hgb 9.3 L Hct 29.8 L MCV 88.4 MCH 27.6 MCHC 31.2 RDW 18.0 H Plt Count 235 MPV 9.7 Immature Gran % (Auto) Neut % (Auto) Lymph % (Auto) Morton % (Auto) Eos % (Auto) Baso % (Auto) Lymph # (Auto) Morton # (Auto) Eos # (Auto) Baso # (Auto) Abs Immat Gran (auto) Absolute Neuts (auto) Absolute Nucleated RBC 0.000 Nucleated RBC % (auto) 0.0 Smear Tech's Comments PT 12.7 INR 1.1 PTT (Heparin Protocol) 30.5 L VBG pH VBG pCO2 VBG pO2 VBG HCO3 VBG O2 Saturation VBG Base Excess Sodium Potassium Chloride Carbon Dioxide Anion Gap BUN Creatinine Estim Creat Clear Calc Estimated GFR Random Glucose Calcium Phosphorus Magnesium Total Bilirubin AST ALT Alkaline Phosphatase Troponin I High Sens 1254.9 H Total Protein Albumin 07/30/20 07/30/20 07/31/20 19:08 19:08 04:28 WBC RBC Hgb Hct MCV MCH MCHC RDW Plt Count MPV Immature Gran % (Auto) Neut % (Auto) Lymph % (Auto) Morton % (Auto) Eos % (Auto) Baso % (Auto) Lymph # (Auto) Morton # (Auto) Eos # (Auto) Baso # (Auto) Abs Immat Gran (auto) Absolute Neuts (auto) Absolute Nucleated RBC Nucleated RBC % (auto) Smear Tech's Comments PT INR PTT (Heparin Protocol) 93.3 H D VBG pH VBG pCO2 VBG pO2 VBG HCO3 VBG O2 Saturation VBG Base Excess Sodium 151 H 150 H Potassium 3.6 3.6 Chloride 118 H 118 H Carbon Dioxide 14 L 19 L Anion Gap 23 H 17 BUN 43 H 46 H Creatinine 1.48 H 1.60 H Estim Creat Clear Calc 57.6 53.3 Estimated GFR 47 43 Random Glucose 115 118 H Calcium 9.2 D 9.2 Phosphorus 3.3 Magnesium 2.3 Total Bilirubin 0.6 AST 14 ALT 10 Alkaline Phosphatase 89 D Troponin I High Sens Total Protein 6.2 L Albumin 4.2 D 07/31/20 07/31/20 07/31/20 04:28 04:28 04:29 WBC 17.0 H RBC 3.07 L Hgb 8.5 L Hct 27.3 L MCV 88.9 MCH 27.7 MCHC 31.1 RDW 18.0 H Plt Count 233 MPV 9.8 Immature Gran % (Auto) 4.8 H Neut % (Auto) 66.4 Lymph % (Auto) 14.1 L Morton % (Auto) 14.1 H Eos % (Auto) 0.4 Baso % (Auto) 0.2 Lymph # (Auto) 2.4 Morton # (Auto) 2.4 H Eos # (Auto) 0.1 Baso # (Auto) 0.0 Abs Immat Gran (auto) 0.81 H Absolute Neuts (auto) 11.3 H Absolute Nucleated RBC 0.000 Nucleated RBC % (auto) 0.0 Smear Tech's Comments VERIFIED PT 13.4 H INR 1.1 PTT (Heparin Protocol) 49.3 L D VBG pH 7.30 L VBG pCO2 42 VBG pO2 26 VBG HCO3 20 VBG O2 Saturation 46.7 VBG Base Excess -6.0 Sodium Potassium Chloride Carbon Dioxide Anion Gap BUN Creatinine Estim Creat Clear Calc Estimated GFR Random Glucose Calcium Phosphorus Magnesium Total Bilirubin AST ALT Alkaline Phosphatase Troponin I High Sens Total Protein Albumin Microbiology Microbiology Results: Microbiology 07/25/20 10:28 Blood - Venous Blood Culture - Final Coagulase-neg Staphyloccocus 07/25/20 10:59 Blood - Venous Blood Culture - Final No growth after 5 days. 07/25/20 15:07 Cerebrospinal Fluid Gram Stain - Final 07/25/20 15:07 Cerebrospinal Fluid CSF Examination - Final 07/25/20 15:07 Cerebrospinal Fluid Gross Specimen Examination - Final 07/25/20 15:07 Cerebrospinal Fluid CSF Culture - Final No growth after 3 days. 07/25/20 17:48 Urine Catheterized - Hill Catheter Urine Culture - Final No growth. 07/25/20 17:48 Sputum - Suctioned Gram Stain - Final 07/25/20 17:48 Sputum - Suctioned Sputum Culture - Final Progress Note: A&P Assessment and plan (1) Metabolic acidosis: Status: Acute Assessment and Plan: Assessment: 70-year-old gentleman with underlying history of remote non- Hodgkin's lymphoma and CLL, also schizoaffective disorder admitted with acute alteration of mental status of unclear etiology requiring intubation and ventilatory support, further complicated by acute cardiomyopathy, renal failure, and episodes of ventricular tachycardia. Plan: Neuro: Acute encephalopathy of unclear etiology. now sedated on ventilatory support. Cardiac: Acute cardiomyopathy. Cardiology service care appreciated. Likely Takotsubo's stress cardiomyopathy With intermittent ventricular tachycardia. Continue to avoid amiodarone and has lidocaine as needed. May require later left heart catheterization. Continue heparin drip for next 24 hours. Pulmonary: Acute respiratory failure requiring ventilatory support. Extubated 07/28/2020. Worsened overnight in required re-intubation 07/29/2020. Continue to titrate off ventilatory support as tolerated. Renal: Acute renal failure, likely related to poor for flow with underlying acute cardiomyopathy. Non oliguric. Continue to monitor urine output and renal indices. Endo: No acute issues. GI: No acute issues. ID: No evidence of bacteremia, early coagulase negative Staph blood culture is a contaminant. Heme/Onc: No acute issues. Psych: No acute issues. Miscellaneous: No acute issues. Prophylaxis: Lovenox, Famotidine Diet: tube feeds Critical care time spent: 60 minutes (2) Cardiomyopathy: Status: Acute (3) Prolonged QT interval: Status: Acute (4) Ventricular tachycardia: Status: Acute (5) Acute respiratory failure: Status: Acute (6) Acute metabolic encephalopathy: Status: Acute Time Spent With Patient Total time spent with greater than 50% in coordination of care (as documented) at patient's floor/unit and/or counseling patient:: 0 Critical Care Time Critical Care Time (minutes): 60
[2020-07-31 12:13] LABS: PTT Heparin Drip 65.5 SEC (53-77.9)
--- NOTE | 2020-07-31 14:00 | PC.NURSE ---
Spoke at length to pt's and daughter (Mary) about the pt being intubated last night as well as findings from yesterday. Pt's wants us to talk to Mary who has a better understanding of medicine. Hearing Aid Dispenser notified of this.
--- NOTE | 2020-07-31 15:40 | MHC.CM.PN ---
Pt required re-intubation on 07/30 - now with Takutsubo cardiomyopathy. Initial d/c plan was for a return to [facility]: clinical updates sent: Will await pt's successful extubation.
[2020-07-31] MEDS: Esmolol HCl/NaCl Iso 2,500 MG/250 ML IV.SOLN 27.12 MG IVCONT (16:56)
--- NOTE | 2020-07-31 16:58 | PC.NURSE ---
HR SUSTAINING 130-160S WITH SVT ON TELE. MD NOTIFIED. SBP DROPPED TO 60S. MD ORDERED ESMOLOL GTT AND LEVOPHED GTT. WILL CONTINUE TO MONITOR.
[2020-07-31 17:47] LABS: PTT Heparin Drip 54.2 SEC (53-77.9)
[2020-07-31 18:04] LABS: Anion Gap 14 (12-20); Blood Urea Nitrogen 48 mg/dL (9-16); Calcium 8.5 mg/dL (8.4-10.2); Carbon Dioxide 19 mmol/L (22-29); Chloride 119 mmol/L (96-108); Creatinine Clr Calc Pharmacy 58.8; Estimated Glomerular Filt Rate 54; Glucose Random 117 mg/dL (60-115); Magnesium 2.2 mg/dL (1.6-2.6); Potassium 3.3 mmol/l (3.3-5.1); Sodium 149 mmol/L (135-145)
--- NOTE | 2020-07-31 18:07 | PC.NURSE ---
AFEBRILE. HR NOW ASSISTED WITH ESMOLOL. LEVOPHED ASSISTING BPS. SEDATED WITH PROPOFOL AND FENTANYL, POSITIVE COUGH AND GAG, SLUGGISH REACTIVE PUPILS. LS COARSE THROUGHOUT. VENT SETTINGS AC 22 TV 450 PEEP 5 FIO2 35%. BLOOD TINGED INLINE AND ORAL SECRETIONS, FREQUENT ORAL CARE GIVEN. MCQUEEN O/P 20-30 ML/HR. BM X 1, VERY SMALL. TUBE FEEDS STARTED TODAY AT 1020 WITH JEVITY STARTING AT 20, INCREASE BY 10 EVERY 4 HOURS, CURRENTLY RUNNING AT 40. FWF 240 Q6 ADMINISTERED. NO RESIDUALS. Q2H REPO, BATHED. FAMILY UPDATED BY RN AND MD. CARDIOLOGY BEDSIDE TO ASSESS PATIENT. HEPARIN GTT HAD TWO NO CHANGES, CONTINUES TO BE RUNNING AT 13 UNITS/KG/HR. PTT-HD TO BE DRAWN AT 0600 PER PROTOCOL.
[2020-07-31] MEDS: Potassium Chloride/H20 20 MEQ/100 ML PIGGYBACK 100 MEQ IV (18:36)
[2020-08-01] VITALS (31 sets, daily range): BP systolic 95–125; BP diastolic 60–75; PULSE 68–89; RESP 20–31; TEMP 37–37.5; O2SAT 92–99; BMI 28.8
--- NOTE | 2020-08-01 | XR_ITS ---
EXAMINATION: XR CHEST CLINICAL INFORMATION: Nasogastric tube placement COMPARISON: Previous chest x-rays most recent from yesterday TECHNIQUE: Frontal view of the chest was obtained. FINDINGS: The cardiac and mediastinal contours are stable. The endotracheal tube is 9 to 10 cm above the ajel. There is a feeding tube with tip projecting over the distal stomach. There is a right jugular line with tip projecting over the SVC. There is bilateral multilobar airspace disease that appears unchanged. There is slight volume loss to the right lung with elevation of the right hemidiaphragm. These findings are unchanged. There is no pleural effusion or pneumothorax. There are mild degenerative changes of the spine. XR/XR chest 1V IMPRESSION: Feeding tube projects over the distal stomach. High position of the endotracheal tube 9 to10 cm above the jael. No change in bilateral multilobar airspace disease.
[2020-08-01] MEDS: propofoL 1,000 MG/100 ML VIAL 29.85 MG IVCONT ×7 (01:19→22:05)
[2020-08-01] MEDS: Esmolol HCl/NaCl Iso 2,500 MG/250 ML IV.SOLN 27.12 MG IVCONT (01:19)
[2020-08-01] MEDS: fentaNYL citrate/NS 1,000 MCG/100 ML PLAST..BAG 15 MCG IVCONT ×4 (03:12→22:03)
[2020-08-01] MEDS: Heparin Sodium,Porcine/1/2NS 25,000 UNIT/250 ML IV.SOLN 12.94 UNIT IVCONT ×2 (05:05→23:21)
[2020-08-01] MEDS: Dextrose 5 % 1,000 ML 50 ML IVCONT (05:50)
[2020-08-01 06:25] LABS: Hematocrit 29.1 % (42-52); Hemoglobin 9.1 g/dl (14.0-18.0); Mean Corpuscular HGB Conc 31.3 g/dl (31.0-36.0); Mean Corpuscular Hemoglobin 27.9 pg (27.0-33.0); Mean Corpuscular Volume 89.3 fL (80-98); Mean Platelet Volume 10.4 fL (9.4-12.4); NRBC Pct Auto 0.2 /100WBC (0.0-0.2); Platelet Count 336 X10*3/uL (160-400); Red Blood Count 3.26 X10*6/uL (4.60-5.80); Red Cell Distribution Width 18.1 % (11.0-16.0)
[2020-08-01 06:44] LABS: PTT Heparin Drip 45.5 SEC (53-77.9)
[2020-08-01 06:48] LABS: HCO3 VBG 20 mmol/L; Oxygen Saturation VBG 65.1 %; PCO2 VBG 43 mmhg; PO2 VBG 34 mmhg; pH VBG 7.29 (7.32-7.43)
[2020-08-01 06:54] LABS: Alanine Aminotransferase 10 U/L (0-40); Albumin Level 3.6 g/dL (3.5-5.0); Alkaline Phosphatase 117 U/L (39-117); Anion Gap 17 (12-20); Aspartate Amino Transferase 15 U/L (5-37); Bilirubin Total 0.7 mg/dL (0.0-1.0); Blood Urea Nitrogen 48 mg/dL (9-16); Calcium 8.6 mg/dL (8.4-10.2); Carbon Dioxide 18 mmol/L (22-29); Chloride 113 mmol/L (96-108); Creatinine Clr Calc Pharmacy 63.9; Estimated Glomerular Filt Rate 53; Glucose Random 121 mg/dL (60-115); Magnesium 2.3 mg/dL (1.6-2.6); Phosphorus 3.3 mg/dL (2.7-4.5); Potassium 4.1 mmol/l (3.3-5.1); Sodium 144 mmol/L (135-145); Total Protein 5.7 g/dL (6.5-8.0)
[2020-08-01] MEDS: Albuterol/Iprat 2.5/0.5MG 3 ML AMPUL.NEB INHALE ×3 (07:33→19:21)
[2020-08-01] MEDS: Heparin Sodium,Porcine 5,000 UNIT/ML VIAL 3980 UNIT IVPUSH (07:35)
[2020-08-01] MEDS: Levothyroxine Sodium 100 MCG VIAL 50 MCG IVPUSH (07:53)
[2020-08-01] MEDS: Chlorhexidine Gluc Oral Rinse 15 ML MOUTHWASH BUCCAL ×3 (07:53→21:23)
[2020-08-01 07:55] LABS: Band Neutrophils Percent 2 % (3-5); Eosinophils Absolute Manual 3.2 X10*3/UL (0.0-0.8); Eosinophils Percent Manual 11 % (0-4); Lymphocytes Absolute Manual 4.1 X10*3/uL (0.6-4.8); Lymphocytes Percent Manual 14 % (20-40); Metamyelocytes Absolute 0.6 X10*3/uL; Metamyelocytes Percent 2 %; Monocytes Absolute Manual 4.1 X10*3/uL (0.0-1.2); Monocytes Percent Manual 14 % (2-11); Neutrophils Absolute Manual 17.1 X10*3/uL (2.2-7.9); Neutrophils Percent Manual 57 % (45-73); Nucleated Red Blood Cells 3 /100WBC (0-0)
[2020-08-01 07:57] LABS: Basophilic Stippling 1+; Smudge Cells PRESENT
[2020-08-01 07:58] LABS: Acanthocytes 1+; Platelet Estimate NORMAL (NORMAL)
[2020-08-01 08:00] LABS: Platelet Morphology Comment NORM
[2020-08-01 08:19] LABS: RBC Morphology NOTED
--- NOTE | 2020-08-01 11:47 | P.PNCA_ITS ---
Subjective Subjective Date of Service: 08/01/20 Interval history: Sedated and intubated. Overnight he had SVT and was started on esmolol drip Review of Systems Review of Systems Yes Unobtainable due to mental status Physical Exam Vital Signs: Last Vital Signs Temp 99.3 F 08/01/20 11:00 Pulse 69 08/01/20 11:00 Resp 25 H 08/01/20 11:00 BP 105/62 08/01/20 11:00 Pulse Ox 96 08/01/20 11:00 Body Mass Index 28.8 GENERAL APPEARANCE: intubated and sedated. NECK/THYROID: no carotid bruit, no jugular venous distention. SKIN: warm and dry. HEART: no murmurs, regular rate and rhythm, S1, S2 normal. LUNGS: Crackles left lung. ABDOMEN: normal, bowel sounds present, soft, nondistended. EXTREMITIES: Edema left leg, PERIPHERAL PULSES: equal. NEUROLOGIC: Sedated. Results Labs and Meds Result diagrams: 08/01/20 05:46 08/01/20 05:46 Lab results: Laboratory Results - last 24 hr 07/31/20 07/31/20 07/31/20 11:45 17:31 17:31 WBC RBC Hgb Hct MCV MCH MCHC RDW Plt Count MPV Immature Gran % (Auto) Neut % (Auto) Lymph % (Auto) [place] % (Auto) Eos % (Auto) Baso % (Auto) Lymph # (Auto) [place] # (Auto) Eos # (Auto) Baso # (Auto) Abs Immat Gran (auto) Absolute Neuts (auto) Absolute Nucleated RBC Nucleated RBC % (auto) Neutrophils % (Manual) Band Neutrophils % Lymphocytes % (Manual) Monocytes % (Manual) Eosinophils % (Manual) Metamyelocytes % Abs Neuts (Manual) Lymphocytes # (Manual) Monocytes # (Manual) Eosinophils # (Manual) Metamyelocytes # Nucleated RBCs Smudge Cells Platelet Estimate Plt Morphology Comment RBC Morphology Basophilic Stippling Acanthocytes (Spur) PTT (Heparin Protocol) 65.5 D 54.2 VBG pH VBG pCO2 VBG pO2 VBG HCO3 VBG O2 Saturation VBG Base Excess Sodium 149 H Potassium 3.3 Chloride 119 H Carbon Dioxide 19 L Anion Gap 14 BUN 48 H Creatinine 1.32 Estim Creat Clear Calc 58.8 Estimated GFR 54 Random Glucose 117 H Calcium 8.5 D Phosphorus Magnesium 2.2 Total Bilirubin AST ALT Alkaline Phosphatase Total Protein Albumin 08/01/20 08/01/20 08/01/20 05:46 05:46 05:46 WBC 29.0 H RBC 3.26 L Hgb 9.1 L Hct 29.1 L MCV 89.3 MCH 27.9 MCHC 31.3 RDW 18.1 H Plt Count 336 D MPV 10.4 Immature Gran % (Auto) Cancelled Neut % (Auto) Cancelled Lymph % (Auto) Cancelled [place] % (Auto) Cancelled Eos % (Auto) Cancelled Baso % (Auto) Cancelled Lymph # (Auto) Cancelled [place] # (Auto) Cancelled Eos # (Auto) Cancelled Baso # (Auto) Cancelled Abs Immat Gran (auto) Cancelled Absolute Neuts (auto) Cancelled Absolute Nucleated RBC 0.070 H Nucleated RBC % (auto) 0.2 Neutrophils % (Manual) 57 Band Neutrophils % 2 L Lymphocytes % (Manual) 14 L Monocytes % (Manual) 14 H Eosinophils % (Manual) 11 H Metamyelocytes % 2 Abs Neuts (Manual) 17.1 H Lymphocytes # (Manual) 4.1 Monocytes # (Manual) 4.1 H Eosinophils # (Manual) 3.2 H Metamyelocytes # 0.6 Nucleated RBCs 3 H Smudge Cells PRESENT Platelet Estimate NORMAL Plt Morphology Comment NORM RBC Morphology NOTED Basophilic Stippling 1+ Acanthocytes (Spur) 1+ PTT (Heparin Protocol) VBG pH 7.29 L VBG pCO2 43 VBG pO2 34 VBG HCO3 20 VBG O2 Saturation 65.1 VBG Base Excess -6.0 Sodium 144 Potassium 4.1 D Chloride 113 H Carbon Dioxide 18 L Anion Gap 17 BUN 48 H Creatinine 1.33 Estim Creat Clear Calc 63.9 Estimated GFR 53 Random Glucose 121 H Calcium 8.6 Phosphorus 3.3 Magnesium 2.3 Total Bilirubin 0.7 AST 15 ALT 10 Alkaline Phosphatase 117 D Total Protein 5.7 L Albumin 3.6 08/01/20 05:46 WBC RBC Hgb Hct MCV MCH MCHC RDW Plt Count MPV Immature Gran % (Auto) Neut % (Auto) Lymph % (Auto) [place] % (Auto) Eos % (Auto) Baso % (Auto) Lymph # (Auto) [place] # (Auto) Eos # (Auto) Baso # (Auto) Abs Immat Gran (auto) Absolute Neuts (auto) Absolute Nucleated RBC Nucleated RBC % (auto) Neutrophils % (Manual) Band Neutrophils % Lymphocytes % (Manual) Monocytes % (Manual) Eosinophils % (Manual) Metamyelocytes % Abs Neuts (Manual) Lymphocytes # (Manual) Monocytes # (Manual) Eosinophils # (Manual) Metamyelocytes # Nucleated RBCs Smudge Cells Platelet Estimate Plt Morphology Comment RBC Morphology Basophilic Stippling Acanthocytes (Spur) PTT (Heparin Protocol) 45.5 L VBG pH VBG pCO2 VBG pO2 VBG HCO3 VBG O2 Saturation VBG Base Excess Sodium Potassium Chloride Carbon Dioxide Anion Gap BUN Creatinine Estim Creat Clear Calc Estimated GFR Random Glucose Calcium Phosphorus Magnesium Total Bilirubin AST ALT Alkaline Phosphatase Total Protein Albumin Progress Note: A&P Assessment and plan (1) Cardiomyopathy: Status: Acute (2) Prolonged QT interval: Status: Acute (3) Sepsis: Status: Acute (4) Acute alteration in mental status: Status: Acute (5) Ventricular tachycardia: Status: Acute Assessment and Plan: 70-year-old gentleman with schizoaffective disorder was admitted with change in mental status secondary to sepsis and pneumonia. He has been on IV antibiotics. 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 He has prolonged QTC which is likely due to takotsubo cardiomyopathy. He had ventricular tachycardia initially which was treated with amiodarone. Amnio was stopped because of prolonged QTC. Overnight he had some SVT which was treated with esmolol. I think if his blood pressure does not allow use of beta-blockers then amiodarone would be the only other choice to be used. We will have to monitor electrolytes and EKGs closely to make sure that the QTC does not worsen. In general amiodarone can prolong QTC but the risk of torsades is very low. We will follow along with you. Thank you for allowing me to participate in the care of your patient. Please f eel free to contact me if you have any questions. Fall Risk Details Current Medications: Current Medications Generic Name Dose Route Start Last Admin Trade Name Freq PRN Reason Stop Dose Admin Albuterol/Ipratropium 3 ml 07/25/20 20:00 08/01/20 07:33 Albuterol/Iprat 2.5/0.5mg 3 Ml Ampul.Neb INHALE 3 ml RQ6H WHILE AWAKE SERINA Administration Chlorhexidine Gluconate 15 ml 07/30/20 23:00 08/01/20 07:53 Chlorhexidine Gluc Oral Rinse 15 Ml Mouthwash BUCCAL 15 ml Q8H SERINA Administration Heparin Sodium (Porcine) 7,960 unit 07/30/20 11:59 07/30/20 12:54 Heparin Sodium,Porcine 5,000 Unit/Ml Vial 80 unit/kg (7960 unit) 7,960 unit IVPUSH Administration BOLUS PRN 80 unit/kg - Heparin Protocol Heparin Sodium (Porcine) 3,980 unit 07/30/20 11:59 08/01/20 07:35 Heparin Sodium,Porcine 5,000 Unit/Ml Vial 40 unit/kg (3980 unit) 3,972 unit IVPUSH Administration BOLUS PRN HEPARINPRO Heparin Sodium/Sodium Chloride 25,000 unit in 250 mls @ 0 mls/hr 07/30/20 12:00 08/01/20 07:40 IVCONT 15 units/kg/hr .Q0M SERINA 14.93 mls/hr Titration Protocol Per Protocol Propofol 1,000 mg in 100 mls @ 0 mls/hr 07/30/20 22:45 08/01/20 11:21 Diprivan IVCONT 50 mcg/kg/min .Q0M SERINA 29.85 mls/hr Administration Protocol Per Protocol Fentanyl 1,000 mcg in 100 mls @ 0 mls/hr 07/31/20 00:30 08/01/20 10:07 Sublimaze/Ns IVCONT 150 mcg/hr .Q0M SERINA 15 mls/hr Administration Protocol Per Protocol Norepinephrine Bitartrate 8 mg in 250 mls @ 0 mls/hr 07/31/20 16:45 08/01/20 03:49 Levophed IVCONT 0.14 mcg/kg/min .Q0M SERINA 23.73 mls/hr Administration Protocol Per Protocol Esmolol HCl 2,500 mg in 250 mls @ 0 mls/hr 07/31/20 16:45 08/01/20 02:26 Brevibloc/Nacl IVCONT 25 mcg/kg/min .Q0M SERINA 13.56 mls/hr Titration Protocol Per Protocol Potassium Chloride 20 meq in 100 mls @ 100 mls/hr 07/31/20 18:30 07/31/20 19:44 IV 08/02/20 19:29 Infused ONCE SERINA Infusion Levothyroxine Sodium 50 mcg 07/26/20 09:00 08/01/20 07:53 Levothyroxine Sodium 100 Mcg Vial IVPUSH 50 mcg DAILY SERINA Administration Lidocaine HCl 50 mg 07/30/20 19:37 Lidocaine Hcl/Pf 100 Mg/5 Ml Syringe IV Q15M PRN Heart Rate > 300 Naloxone HCl 0.2 mg 07/25/20 15:56 Naloxone Hcl 0.4 Mg/Ml Vial IVPUSH Q2M PRN Excessive sedation or RR < 8 Pharmacy Consult 1 each 07/25/20 14:13 Consult Rx Perform Med Rec MISCELLANE ONCE PRN Consult order Sodium Chloride 3 ml 07/25/20 16:00 08/01/20 07:38 0.9 % Sodium Chloride Flush 3 Ml Syringe IVFLUSH Not Given QSHIFT SERINA Time Spent With Patient Time: Total time spent is greater than 50% in coordination of care (as documente d) at patient's floor/unit and/or counseling patient: Time with patient: less than 15 minutes
--- NOTE | 2020-08-01 12:42 | PM.CCPN ---
Subjective Subjective Date of Service: 08/01/20 Interval History: 70-year-old gentleman with underlying history of non-Hodgkin's lymphoma, CLL, schizoaffective disorder admitted on 07/25/2020 with alteration of mental status requiring intubation for airway protection in the emergency room. Encephalitis workup negative including CSF studies. CT head with no acute findings. Extubated 07/28/2020. Hospital course further complicated by development of acute cardiomyopathy, ventricular tachycardia likely secondary to takotsubo stress cardiomyopathy, acute kidney injury, and acute hypoxic respiratory failure requiring re-intubation on 07/30/2020. No events overnight. Physical Exam Vital Signs: Vital Signs: Last Vital Signs Temp 99.1 F 08/01/20 12:00 Pulse 68 08/01/20 12:00 Resp 26 H 08/01/20 12:00 BP 110/65 08/01/20 12:00 Pulse Ox 95 08/01/20 12:00 Body Mass Index 28.8 Const: General: no acute distress and other ( Sedated on the vent) Eyes: Sclerae: sclerae normal Neck: Neck: Yes no lymphadenopathy, Yes trachea midline and Yes supple Resp: Auscultation: crackles ( right basilar) Cardio: Rate: regular rate Rhythm: regular rhythm Heart sounds: no gallops, no murmurs and no rubs GI: Palpation (GI): Soft to palpation and Other GI palpation findings present ( Nontender) Auscultation: normal bowel sounds : Other: scrotal edema Extrem: General: No clubbing, No cyanosis and Yes edema ( 1+ bilateral) Objective Data Labs CBC & Chem 7: 08/01/20 05:46 08/01/20 05:46 Labs: Laboratory Results - last 24 hr 07/31/20 07/31/20 08/01/20 17:31 17:31 05:46 WBC 29.0 H RBC 3.26 L Hgb 9.1 L Hct 29.1 L MCV 89.3 MCH 27.9 MCHC 31.3 RDW 18.1 H Plt Count 336 D MPV 10.4 Immature Gran % (Auto) Cancelled Neut % (Auto) Cancelled Lymph % (Auto) Cancelled [place] % (Auto) Cancelled Eos % (Auto) Cancelled Baso % (Auto) Cancelled Lymph # (Auto) Cancelled [place] # (Auto) Cancelled Eos # (Auto) Cancelled Baso # (Auto) Cancelled Abs Immat Gran (auto) Cancelled Absolute Neuts (auto) Cancelled Absolute Nucleated RBC 0.070 H Nucleated RBC % (auto) 0.2 Neutrophils % (Manual) 57 Band Neutrophils % 2 L Lymphocytes % (Manual) 14 L Monocytes % (Manual) 14 H Eosinophils % (Manual) 11 H Metamyelocytes % 2 Abs Neuts (Manual) 17.1 H Lymphocytes # (Manual) 4.1 Monocytes # (Manual) 4.1 H Eosinophils # (Manual) 3.2 H Metamyelocytes # 0.6 Nucleated RBCs 3 H Smudge Cells PRESENT Platelet Estimate NORMAL Plt Morphology Comment NORM RBC Morphology NOTED Basophilic Stippling 1+ Acanthocytes (Spur) 1+ PTT (Heparin Protocol) 54.2 VBG pH VBG pCO2 VBG pO2 VBG HCO3 VBG O2 Saturation VBG Base Excess Sodium 149 H Potassium 3.3 Chloride 119 H Carbon Dioxide 19 L Anion Gap 14 BUN 48 H Creatinine 1.32 Estim Creat Clear Calc 58.8 Estimated GFR 54 Random Glucose 117 H Calcium 8.5 D Phosphorus Magnesium 2.2 Total Bilirubin AST ALT Alkaline Phosphatase Total Protein Albumin 08/01/20 08/01/20 08/01/20 05:46 05:46 05:46 WBC RBC Hgb Hct MCV MCH MCHC RDW Plt Count MPV Immature Gran % (Auto) Neut % (Auto) Lymph % (Auto) [place] % (Auto) Eos % (Auto) Baso % (Auto) Lymph # (Auto) [place] # (Auto) Eos # (Auto) Baso # (Auto) Abs Immat Gran (auto) Absolute Neuts (auto) Absolute Nucleated RBC Nucleated RBC % (auto) Neutrophils % (Manual) Band Neutrophils % Lymphocytes % (Manual) Monocytes % (Manual) Eosinophils % (Manual) Metamyelocytes % Abs Neuts (Manual) Lymphocytes # (Manual) Monocytes # (Manual) Eosinophils # (Manual) Metamyelocytes # Nucleated RBCs Smudge Cells Platelet Estimate Plt Morphology Comment RBC Morphology Basophilic Stippling Acanthocytes (Spur) PTT (Heparin Protocol) 45.5 L VBG pH 7.29 L VBG pCO2 43 VBG pO2 34 VBG HCO3 20 VBG O2 Saturation 65.1 VBG Base Excess -6.0 Sodium 144 Potassium 4.1 D Chloride 113 H Carbon Dioxide 18 L Anion Gap 17 BUN 48 H Creatinine 1.33 Estim Creat Clear Calc 63.9 Estimated GFR 53 Random Glucose 121 H Calcium 8.6 Phosphorus 3.3 Magnesium 2.3 Total Bilirubin 0.7 AST 15 ALT 10 Alkaline Phosphatase 117 D Total Protein 5.7 L Albumin 3.6 Microbiology Microbiology Results: Microbiology 07/25/20 10:28 Blood - Venous Blood Culture - Final Coagulase-neg Staphyloccocus 07/25/20 10:59 Blood - Venous Blood Culture - Final No growth after 5 days. 07/25/20 15:07 Cerebrospinal Fluid Gram Stain - Final 07/25/20 15:07 Cerebrospinal Fluid CSF Examination - Final 07/25/20 15:07 Cerebrospinal Fluid Gross Specimen Examination - Final 07/25/20 15:07 Cerebrospinal Fluid CSF Culture - Final No growth after 3 days. 07/25/20 17:48 Urine Catheterized - Hill Catheter Urine Culture - Final No growth. 07/25/20 17:48 Sputum - Suctioned Gram Stain - Final 07/25/20 17:48 Sputum - Suctioned Sputum Culture - Final Progress Note: A&P Assessment and plan (1) Metabolic acidosis: Status: Acute Assessment and Plan: Assessment: 70-year-old gentleman with underlying history of remote non-Hodgkin's lymphoma and CLL, also schizoaffective disorder admitted with acute alteration of mental status of unclear etiology requiring intubation and ventilatory support, further complicated by acute cardiomyopathy, renal failure, and episodes of ventricular tachycardia. Plan: Neuro: Acute encephalopathy of unclear etiology. Now sedated on ventilatory support. Cardiac: Acute cardiomyopathy. Cardiology service care appreciated. Likely Takotsubo's stress cardiomyopathy With intermittent ventricular tachycardia. Continue to avoid amiodarone and use lidocaine as needed. May require later left heart catheterization. Continue heparin drip for next 24 hours. Pulmonary: Acute respiratory failure requiring ventilatory support. Extubated 07/28/2020. Worsened overnight in required re-intubation 07/29/2020. Continue to titrate off ventilatory support as tolerated. Renal: Acute renal failure, likely related to poor for flow with underlying acute cardiomyopathy. Non oliguric. Continue to monitor urine output and renal indices. Endo: No acute issues. GI: No acute issues. ID: No evidence of bacteremia, early coagulase negative Staph blood culture is a contaminant. Heme/Onc: No acute issues. Psych: No acute issues. Miscellaneous: No acute issues. Prophylaxis: Lovenox, Famotidine Diet: tube feeds Critical care time spent: 60 minutes (2) Cardiomyopathy: Status: Acute (3) Prolonged QT interval: Status: Acute (4) Acute respiratory failure: Status: Acute Time Spent With Patient Time: Total time spent is greater than 50% in coordination of care (as documented) at patient's floor/unit and/or counseling patient: Total time spent with greater than 50% in coordination of care (as documented) at patient's floor/unit and/or counseling patient:: 0 Critical Care Time Critical Care Time (minutes): 60
--- NOTE | 2020-08-01 14:01 | MHC.SLORD ---
Patient is on vent and not appropriate for PO trials. Bedside dysphagia evaluation is pending 24-48 hours post-extubation. Name: Can Baltazar Date of : 1950 Age: 70 Date of Registration: 07/25/20 Speech Language Pathology Order Status:
[2020-08-01 14:45] LABS: PTT Heparin Drip 91.7 SEC (53-77.9)
[2020-08-01] MEDS: Esmolol HCl/NaCl Iso 2,500 MG/250 ML IV.SOLN 10.85 MG IVCONT (17:43)
--- NOTE | 2020-08-01 18:34 | PC.NURSE ---
shift update; pt remains on ventilator on ac settings, sedate on propofol and fentanyl gtts; tf difficult to flush, attempt to advance og without success, removed and attempt to replace with difficulty- keofeed tube placed by dr andrade this shift- cxr confirmed- et tube slight migration- readvanced to 26 cm hever; pt tolerating ac settings well on sedation maintaining sats and volumes; heparin gtt running- following protocol per ptt-hd and q6h checks; sr on monitor 70s- per dr andrade try to wean esmolol gtt as hr tolerates; restraints remain in place for tube and airway safety; skin tear dsgs changed in AC and left hand; pressure injury noted on nose, documented; lle dsg changed; abundio in place; daughter jovita updated
[2020-08-01 21:43] LABS: PTT Heparin Drip 64.3 SEC (53-77.9)
[2020-08-02] VITALS (34 sets, daily range): BP systolic 104–136; BP diastolic 5–82; PULSE 72–86; RESP 28–35; TEMP 36.8–37.6; O2SAT 94–100; BMI 29.0
[2020-08-02] MEDS: propofoL 1,000 MG/100 ML VIAL 29.85 MG IVCONT ×6 (01:07→22:10)
[2020-08-02] MEDS: fentaNYL citrate/NS 1,000 MCG/100 ML PLAST..BAG 17.5 MCG IVCONT (04:13)
[2020-08-02 06:23] LABS: Hematocrit 30.3 % (42-52); Hemoglobin 9.3 g/dl (14.0-18.0); Mean Corpuscular HGB Conc 30.7 g/dl (31.0-36.0); Mean Corpuscular Volume 87.8 fL (80-98); Mean Platelet Volume 10.8 fL (9.4-12.4); NRBC Pct Auto 0.2 /100WBC (0.0-0.2); Platelet Count 380 X10*3/uL (160-400); Red Blood Count 3.45 X10*6/uL (4.60-5.80); Red Cell Distribution Width 18.3 % (11.0-16.0); White Blood Count 26.3 X10*3/uL (4.8-10.8)
[2020-08-02 06:33] LABS: PTT Heparin Drip 51.6 SEC (53-77.9)
[2020-08-02 06:54] LABS: HCO3 VBG 20 mmol/L; PCO2 VBG 38 mmhg; PO2 VBG 56 mmhg; pH VBG 7.35 (7.32-7.43)
[2020-08-02 06:55] LABS: Atypical Lymph Absolute Manual 1.1 x10*3/uL; Atypical Lymphs Percent Manual 4 % (0-6); Eosinophils Absolute Manual 1.1 X10*3/UL (0.0-0.8); Eosinophils Percent Manual 4 % (0-4); Lymphocytes Absolute Manual 3.2 X10*3/uL (0.6-4.8); Lymphocytes Percent Manual 12 % (20-40); Metamyelocytes Absolute 1.3 X10*3/uL; Metamyelocytes Percent 5 %; Monocytes Absolute Manual 2.6 X10*3/uL (0.0-1.2); Monocytes Percent Manual 10 % (2-11); Myelocytes Absolute 0.5 X10*/uL; Myelocytes Percent 2 %; Neutrophils Absolute Manual 16.6 X10*3/uL (2.2-7.9); Neutrophils Percent Manual 61 % (45-73)
[2020-08-02 06:57] LABS: Alanine Aminotransferase 11 U/L (0-40); Albumin Level 3.3 g/dL (3.5-5.0); Alkaline Phosphatase 143 U/L (39-117); Anion Gap 16 (12-20); Aspartate Amino Transferase 17 U/L (5-37); Bilirubin Total 0.7 mg/dL (0.0-1.0); Blood Urea Nitrogen 42 mg/dL (9-16); Calcium 8.2 mg/dL (8.4-10.2); Carbon Dioxide 18 mmol/L (22-29); Chloride 113 mmol/L (96-108); Creatinine Clr Calc Pharmacy 81.4; Estimated Glomerular Filt Rate > 60; Glucose Random 156 mg/dL (60-115); Magnesium 2.1 mg/dL (1.6-2.6); Phosphorus 3.1 mg/dL (2.7-4.5); Potassium 4.1 mmol/l (3.3-5.1); Sodium 143 mmol/L (135-145); Total Protein 5.4 g/dL (6.5-8.0)
[2020-08-02 06:59] LABS: Acanthocytes 2+; Basophilic Stippling 1+; Hypochromasia 1+; Microcytosis 1+; Platelet Estimate NORMAL (NORMAL); Platelet Morphology Comment NORMAL; Polychromasia 1+; RBC Morphology NOTED; Toxic Vacuolation PRESENT
[2020-08-02] MEDS: Albuterol/Iprat 2.5/0.5MG 3 ML AMPUL.NEB INHALE ×3 (07:44→20:30)
[2020-08-02] MEDS: 0.9 % Sodium Chloride Flush 3 ML SYRINGE IVFLUSH ×2 (08:25→16:19)
[2020-08-02] MEDS: Chlorhexidine Gluc Oral Rinse 15 ML MOUTHWASH BUCCAL ×3 (08:28→22:10)
[2020-08-02] MEDS: Levothyroxine Sodium 100 MCG VIAL 50 MCG IVPUSH (08:28)
[2020-08-02] MEDS: fentaNYL citrate/NS 1,000 MCG/100 ML PLAST..BAG 10 MCG IVCONT (09:49)
[2020-08-02] MEDS: propofoL 1,000 MG/100 ML VIAL 17.91 MG IVCONT (11:01)
--- NOTE | 2020-08-02 11:37 | P.PNCA_ITS ---
Subjective Subjective Date of Service: 08/02/20 Interval history: Sedated and intubated Review of Systems Review of Systems Yes Unobtainable due to mental status Physical Exam Vital Signs: Last Vital Signs Temp 98.6 F 08/02/20 10:57 Pulse 86 08/02/20 10:57 Resp 32 H 08/02/20 10:57 BP 124/77 08/02/20 10:57 Pulse Ox 98 08/02/20 10:57 Body Mass Index 29.0 GENERAL APPEARANCE: intubated and sedated. NECK/THYROID: no carotid bruit, no jugular venous distention. SKIN: warm and dry. HEART: no murmurs, regular rate and rhythm, S1, S2 normal. LUNGS: Crackles left lung. ABDOMEN: normal, bowel sounds present, soft, nondistended. EXTREMITIES: Edema left leg, PERIPHERAL PULSES: equal. NEUROLOGIC: Sedated. Results Labs and Meds Result diagrams: 08/02/20 05:28 08/02/20 05:28 Lab results: Laboratory Results - last 24 hr 08/01/20 08/01/20 08/02/20 13:43 21:16 05:28 WBC RBC Hgb Hct MCV MCH MCHC RDW Plt Count MPV Immature Gran % (Auto) Neut % (Auto) Lymph % (Auto) [place] % (Auto) Eos % (Auto) Baso % (Auto) Lymph # (Auto) [place] # (Auto) Eos # (Auto) Baso # (Auto) Abs Immat Gran (auto) Absolute Neuts (auto) Absolute Nucleated RBC Nucleated RBC % (auto) Neutrophils % (Manual) Lymphocytes % (Manual) Atypical Lymphs % (Man) Monocytes % (Manual) Eosinophils % (Manual) Metamyelocytes % Myelocytes % Abs Neuts (Manual) Lymphocytes # (Manual) Atyp Lymphs # (Manual) Monocytes # (Manual) Eosinophils # (Manual) Metamyelocytes # Myelocytes # Toxic Vacuolation Platelet Estimate Plt Morphology Comment RBC Morphology Polychromasia Hypochromasia Basophilic Stippling Microcytosis Acanthocytes (Spur) PTT (Heparin Protocol) 91.7 H D 64.3 D 51.6 L VBG pH VBG pCO2 VBG pO2 VBG HCO3 VBG O2 Saturation VBG Base Excess Sodium Potassium Chloride Carbon Dioxide Anion Gap BUN Creatinine Estim Creat Clear Calc Estimated GFR Random Glucose Calcium Phosphorus Magnesium Total Bilirubin AST ALT Alkaline Phosphatase Total Protein Albumin 08/02/20 08/02/20 08/02/20 05:28 05:28 05:28 WBC 26.3 H RBC 3.45 L Hgb 9.3 L Hct 30.3 L MCV 87.8 MCH 27.0 MCHC 30.7 L RDW 18.3 H Plt Count 380 MPV 10.8 Immature Gran % (Auto) Cancelled Neut % (Auto) Cancelled Lymph % (Auto) Cancelled [place] % (Auto) Cancelled Eos % (Auto) Cancelled Baso % (Auto) Cancelled Lymph # (Auto) Cancelled [place] # (Auto) Cancelled Eos # (Auto) Cancelled Baso # (Auto) Cancelled Abs Immat Gran (auto) Cancelled Absolute Neuts (auto) Cancelled Absolute Nucleated RBC 0.040 H Nucleated RBC % (auto) 0.2 Neutrophils % (Manual) 61 Lymphocytes % (Manual) 12 L Atypical Lymphs % (Man) 4 Monocytes % (Manual) 10 Eosinophils % (Manual) 4 Metamyelocytes % 5 Myelocytes % 2 Abs Neuts (Manual) 16.6 H Lymphocytes # (Manual) 3.2 Atyp Lymphs # (Manual) 1.1 Monocytes # (Manual) 2.6 H Eosinophils # (Manual) 1.1 H Metamyelocytes # 1.3 Myelocytes # 0.5 Toxic Vacuolation PRESENT Platelet Estimate NORMAL Plt Morphology Comment NORMAL RBC Morphology NOTED Polychromasia 1+ Hypochromasia 1+ Basophilic Stippling 1+ Microcytosis 1+ Acanthocytes (Spur) 2+ PTT (Heparin Protocol) VBG pH 7.35 VBG pCO2 38 VBG pO2 56 VBG HCO3 20 VBG O2 Saturation 90.0 VBG Base Excess -5.0 Sodium 143 Potassium 4.1 Chloride 113 H Carbon Dioxide 18 L Anion Gap 16 BUN 42 H Creatinine 1.05 Estim Creat Clear Calc 81.4 Estimated GFR > 60 Random Glucose 156 H Calcium 8.2 L Phosphorus 3.1 Magnesium 2.1 Total Bilirubin 0.7 AST 17 ALT 11 Alkaline Phosphatase 143 H D Total Protein 5.4 L Albumin 3.3 L Progress Note: A&P Assessment and plan (1) Cardiomyopathy: Status: Acute (2) Ventricular tachycardia: Status: Acute Assessment and Plan: 70-year-old gentleman with schizoaffective disorder was admitted with change in mental status secondary to sepsis and pneumonia. He has been on IV antibiotics. 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 He has prolonged QTC which is likely due to takotsubo cardiomyopathy. He had ventricular tachycardia initially which was treated with amiodarone. Amio was stopped because of prolonged QTC. He had some runs of SVT which were treated with esmolol. We will repeat limited echo on Tuesday to reassess the wall motion. Depending on his recovery from the mental status viewpoint, he will need ischemic evaluation. We will follow along with you. Thank you for allowing me to participate in the care of your patient. Please feel free to contact me if you have any questions. Fall Risk Details Current Medications: Current Medications Generic Name Dose Route Start Last Admin Trade Name Freq PRN Reason Stop Dose Admin Albuterol/Ipratropium 3 ml 08/02/20 08:00 08/02/20 07:44 Albuterol/Iprat 2.5/0.5mg 3 Ml Ampul.Neb INHALE 3 ml RQ6H WHILE AWAKE SERINA Administration Chlorhexidine Gluconate 15 ml 07/30/20 23:00 08/02/20 08:28 Chlorhexidine Gluc Oral Rinse 15 Ml Mouthwash BUCCAL 15 ml Q8H SERINA Administration Propofol 1,000 mg in 100 mls @ 0 mls/hr 07/30/20 22:45 08/02/20 11:01 Diprivan IVCONT 30 mcg/kg/min .Q0M SERINA 17.91 mls/hr Administration Protocol Per Protocol Fentanyl 1,000 mcg in 100 mls @ 0 mls/hr 07/31/20 00:30 08/02/20 09:49 Sublimaze/Ns IVCONT 100 mcg/hr .Q0M SERINA 10 mls/hr Administration Protocol Per Protocol Norepinephrine Bitartrate 8 mg in 250 mls @ 0 mls/hr 07/31/20 16:45 08/02/20 02:22 Levophed IVCONT 0.12 mcg/kg/min .Q0M SERINA 20.34 mls/hr Titration Protocol Per Protocol Esmolol HCl 2,500 mg in 250 mls @ 0 mls/hr 07/31/20 16:45 08/02/20 02:19 Brevibloc/Nacl IVCONT 0 mcg/kg/min .Q0M SERINA 0 mls/hr Titration Protocol Per Protocol Potassium Chloride 20 meq in 100 mls @ 100 mls/hr 07/31/20 18:30 07/31/20 19:44 IV 08/02/20 19:29 Infused ONCE SERINA Infusion Levothyroxine Sodium 50 mcg 07/26/20 09:00 08/02/20 08:28 Levothyroxine Sodium 100 Mcg Vial IVPUSH 50 mcg DAILY SERINA Administration Lidocaine HCl 50 mg 07/30/20 19:37 Lidocaine Hcl/Pf 100 Mg/5 Ml Syringe IV Q15M PRN Heart Rate > 300 Naloxone HCl 0.2 mg 07/25/20 15:56 Naloxone Hcl 0.4 Mg/Ml Vial IVPUSH Q2M PRN Excessive sedation or RR < 8 Pharmacy Consult 1 each 07/25/20 14:13 Consult Rx Perform Med Rec MISCELLANE ONCE PRN Consult order Sodium Chloride 3 ml 07/25/20 16:00 08/02/20 08:25 0.9 % Sodium Chloride Flush 3 Ml Syringe IVFLUSH 3 ml QSHIFT SERINA Administration Time Spent With Patient Time: Total time spent is greater than 50% in coordination of care (as document ed) at patient's floor/unit and/or counseling patient: Time with patient: less than 15 minutes
--- NOTE | 2020-08-02 12:23 | PM.CCPN ---
Subjective Subjective Date of Service: 08/02/20 Interval History: 70-year-old gentleman with underlying history of non-Hodgkin's lymphoma, CLL, schizoaffective disorder admitted on 07/25/2020 with alteration of mental status requiring intubation for airway protection in the emergency room. Encephalitis workup negative including CSF studies. CT head with no acute findings. Extubated 07/28/2020. Hospital course further complicated by development of acute cardiomyopathy, ventricular tachycardia likely secondary to takotsubo stress cardiomyopathy, acute kidney injury, and acute hypoxic respiratory failure requiring re-intubation on 07/30/2020. No events overnight. did not tolerate pressure support trial with development of flipped T-waves. Physical Exam Vital Signs: Vital Signs: Last Vital Signs Temp 98.8 F 08/02/20 12:00 Pulse 85 08/02/20 12:00 Resp 30 H 08/02/20 12:00 BP 135/82 08/02/20 12:00 Pulse Ox 100 08/02/20 12:00 Body Mass Index 29.0 Const: General: no acute distress and other ( Sedated on the vent) Eyes: Sclerae: sclerae normal Neck: Neck: Yes no lymphadenopathy, Yes trachea midline and Yes supple Resp: Auscultation: crackles ( bibasilar) Cardio: Rate: regular rate Rhythm: regular rhythm Heart sounds: no gallops, no murmurs and no rubs GI: Palpation (GI): Soft to palpation and Other GI palpation findings present ( Nontender) Auscultation: normal bowel sounds Extrem: General: Yes no pedal edema, No clubbing and No cyanosis Objective Data Labs CBC & Chem 7: 08/02/20 05:28 08/02/20 05:28 Labs: Laboratory Results - last 24 hr 08/01/20 08/01/20 08/02/20 13:43 21:16 05:28 WBC RBC Hgb Hct MCV MCH MCHC RDW Plt Count MPV Immature Gran % (Auto) Neut % (Auto) Lymph % (Auto) [place] % (Auto) Eos % (Auto) Baso % (Auto) Lymph # (Auto) [place] # (Auto) Eos # (Auto) Baso # (Auto) Abs Immat Gran (auto) Absolute Neuts (auto) Absolute Nucleated RBC Nucleated RBC % (auto) Neutrophils % (Manual) Lymphocytes % (Manual) Atypical Lymphs % (Man) Monocytes % (Manual) Eosinophils % (Manual) Metamyelocytes % Myelocytes % Abs Neuts (Manual) Lymphocytes # (Manual) Atyp Lymphs # (Manual) Monocytes # (Manual) Eosinophils # (Manual) Metamyelocytes # Myelocytes # Toxic Vacuolation Platelet Estimate Plt Morphology Comment RBC Morphology Polychromasia Hypochromasia Basophilic Stippling Microcytosis Acanthocytes (Spur) PTT (Heparin Protocol) 91.7 H D 64.3 D 51.6 L VBG pH VBG pCO2 VBG pO2 VBG HCO3 VBG O2 Saturation VBG Base Excess Sodium Potassium Chloride Carbon Dioxide Anion Gap BUN Creatinine Estim Creat Clear Calc Estimated GFR Random Glucose Calcium Phosphorus Magnesium Total Bilirubin AST ALT Alkaline Phosphatase Total Protein Albumin 08/02/20 08/02/20 08/02/20 05:28 05:28 05:28 WBC 26.3 H RBC 3.45 L Hgb 9.3 L Hct 30.3 L MCV 87.8 MCH 27.0 MCHC 30.7 L RDW 18.3 H Plt Count 380 MPV 10.8 Immature Gran % (Auto) Cancelled Neut % (Auto) Cancelled Lymph % (Auto) Cancelled [place] % (Auto) Cancelled Eos % (Auto) Cancelled Baso % (Auto) Cancelled Lymph # (Auto) Cancelled [place] # (Auto) Cancelled Eos # (Auto) Cancelled Baso # (Auto) Cancelled Abs Immat Gran (auto) Cancelled Absolute Neuts (auto) Cancelled Absolute Nucleated RBC 0.040 H Nucleated RBC % (auto) 0.2 Neutrophils % (Manual) 61 Lymphocytes % (Manual) 12 L Atypical Lymphs % (Man) 4 Monocytes % (Manual) 10 Eosinophils % (Manual) 4 Metamyelocytes % 5 Myelocytes % 2 Abs Neuts (Manual) 16.6 H Lymphocytes # (Manual) 3.2 Atyp Lymphs # (Manual) 1.1 Monocytes # (Manual) 2.6 H Eosinophils # (Manual) 1.1 H Metamyelocytes # 1.3 Myelocytes # 0.5 Toxic Vacuolation PRESENT Platelet Estimate NORMAL Plt Morphology Comment NORMAL RBC Morphology NOTED Polychromasia 1+ Hypochromasia 1+ Basophilic Stippling 1+ Microcytosis 1+ Acanthocytes (Spur) 2+ PTT (Heparin Protocol) VBG pH 7.35 VBG pCO2 38 VBG pO2 56 VBG HCO3 20 VBG O2 Saturation 90.0 VBG Base Excess -5.0 Sodium 143 Potassium 4.1 Chloride 113 H Carbon Dioxide 18 L Anion Gap 16 BUN 42 H Creatinine 1.05 Estim Creat Clear Calc 81.4 Estimated GFR > 60 Random Glucose 156 H Calcium 8.2 L Phosphorus 3.1 Magnesium 2.1 Total Bilirubin 0.7 AST 17 ALT 11 Alkaline Phosphatase 143 H D Total Protein 5.4 L Albumin 3.3 L Microbiology Microbiology Results: Microbiology 07/25/20 10:28 Blood - Venous Blood Culture - Final Coagulase-neg Staphyloccocus 07/25/20 10:59 Blood - Venous Blood Culture - Final No growth after 5 days. 07/25/20 15:07 Cerebrospinal Fluid Gram Stain - Final 07/25/20 15:07 Cerebrospinal Fluid CSF Examination - Final 07/25/20 15:07 Cerebrospinal Fluid Gross Specimen Examination - Final 07/25/20 15:07 Cerebrospinal Fluid CSF Culture - Final No growth after 3 days. 07/25/20 17:48 Urine Catheterized - Hill Catheter Urine Culture - Final No growth. 07/25/20 17:48 Sputum - Suctioned Gram Stain - Final 07/25/20 17:48 Sputum - Suctioned Sputum Culture - Final Progress Note: A&P Assessment and plan (1) Cardiomyopathy: Status: Acute Assessment and Plan: Assessment: 70-year-old gentleman with underlying history of remote non-Hodgkin's lymphoma and CLL, also schizoaffective disorder admitted with acute alteration of mental status of unclear etiology requiring intubation and ventilatory support, further complicated by acute cardiomyopathy, renal failure, and episodes of ventricular tachycardia. Plan: Neuro: Acute encephalopathy of unclear etiology. Now sedated on ventilatory support. Cardiac: Acute cardiomyopathy. Cardiology service care appreciated. Likely Takotsubo's stress cardiomyopathy With intermittent ventricular tachycardia. Continue to avoid amiodarone and use lidocaine as needed. May require later left heart catheterization. Continue heparin drip for next 24 hours. Pulmonary: Acute respiratory failure requiring ventilatory support. Extubated 07/28/2020. Worsened overnight in required re-intubation 07/29/2020. Continue to titrate off ventilatory support as tolerated. Did not tolerate pressure support trial today with development of flipped T-waves. Renal: Acute renal failure, likely related to poor for flow with underlying acute cardiomyopathy, improved. Non oliguric. Continue to monitor urine output and renal indices. Now with significant edema, will attempt gentle diuresis. Endo: No acute issues. GI: No acute issues. ID: No evidence of bacteremia, early coagulase negative Staph blood culture is a contaminant. Heme/Onc: No acute issues. Psych: No acute issues. Miscellaneous: No acute issues. Prophylaxis: Lovenox, Famotidine Diet: tube feeds Critical care time spent: 60 minutes (2) Acute respiratory failure: Status: Acute (3) Acute metabolic encephalopathy: Status: Acute Time Spent With Patient Time: Total time spent is greater than 50% in coordination of care (as documented) at patient's floor/unit and/or counseling patient: Total time spent with greater than 50% in coordination of care (as documented) at patient's floor/unit and/or counseling patient:: 0 Critical Care Time Critical Care Time (minutes): 60
--- NOTE | 2020-08-02 12:57 | PC.NURSE ---
Per Dr Breen sedation vacation attempted at 1235 Propofol, fentanyl, and Norepi held. Pt RR increased and immed had multiple PVCs. Dr Breen alerted and sedation restarted see flow sheet for dosing
[2020-08-02] MEDS: Furosemide 20 MG/2 ML VIAL IVPUSH (14:06)
[2020-08-02] MEDS: Albumin Human 25 % 100 ML IV ×2 (14:10→20:14)
--- NOTE | 2020-08-02 15:38 | PC.NURSE ---
pt had episode of de-saturation to 88% pt was suctioned and repositioned O2 reading back to 99% Dr Breen aware
[2020-08-02] MEDS: Enoxaparin Sodium 40 MG/0.4 ML SYRINGE SUBCUT (17:50)
--- NOTE | 2020-08-02 18:14 | PC.NURSE ---
Pt resting comfortably at this writing, Pt is sedated, pt is not bucking vent. Pt had one episode of O2 de-sat due to mucus plug. Pt was suctioned with good effect. Vent setting AC control Rate 22 pt over breathing vent at 34. FiO2 30 and peep 5.0. Pt cardiacve status stable at this time NS with only occasional PVC. During sedation vacation attempt, pt cardiac rhythm became irritable with multifocal PVCs Dr Breen notified and attempt lighten patient aborted.Pt wounds dressed today. Pt [facility] Plan is to have repeat echo on Tuesday. Pt diuresed with lasix with good effect 800 ml out. Lung sounds improved
[2020-08-02] MEDS: fentaNYL citrate/NS 1,000 MCG/100 ML PLAST..BAG 15 MCG IVCONT (19:22)
[2020-08-03] VITALS (35 sets, daily range): BP systolic 101–148; BP diastolic 54–79; PULSE 71–98; RESP 29–36; TEMP 36.6–37.4; O2SAT 96–100; BMI 26.7
[2020-08-03] MEDS: fentaNYL citrate/NS 1,000 MCG/100 ML PLAST..BAG 15 MCG IVCONT ×4 (00:06→20:04)
[2020-08-03] MEDS: propofoL 1,000 MG/100 ML VIAL 29.85 MG IVCONT ×7 (00:26→21:26)
[2020-08-03] MEDS: 0.9 % Sodium Chloride Flush 3 ML SYRINGE IVFLUSH ×3 (00:28→16:07)
[2020-08-03] MEDS: Furosemide 20 MG/2 ML VIAL IVPUSH ×2 (02:29→13:47)
[2020-08-03] MEDS: Albumin Human 25 % 100 ML IV ×2 (02:29→07:47)
--- NOTE | 2020-08-03 02:59 | XR_ITS ---
EXAMINATION: XR CHEST CLINICAL INFORMATION: Endotracheal tube placement COMPARISON: 08/01/2020 TECHNIQUE: Frontal view of the chest was obtained. FINDINGS: Endotracheal tube terminates 4.5 cm above the jael. Dobbhoff tube extends beyond the [id number] of this study. Right internal jugular central venous catheter in place terminating over the region of the right atrium. Lung volumes are low. Patchy bilateral airspace opacities are again noted. Mild increased from the previous study, particularly in the retrocardiac region. The cardiomediastinal silhouette is unchanged. No pneumothorax. XR/XR chest 1V IMPRESSION: Endotracheal tube terminating 4.5 cm above the jael. Mild increase in bilateral airspace opacities.
--- NOTE | 2020-08-03 03:39 | PC.NURSE ---
PT ON AC VENT SETTINGS. AC 22. PT BREATHING OVER THE VENT WITH RESP RATE 30-34. FENTANYL DRIP INCREASED FROM 150 MCG/HR TO 200 MCG/HR WITH NO EFFECT ON RESP RATE SO BACK DOWN TO 150 MCG. PROPOFOL AT MAX DOSE OF 50 MCG/KG/MIN. SANDING SUPERVISOR MARV AWARE OF HIGH RESP RATE AND AT BEDSIDE TO ASSESS RESP STATUS. NO INTERVENTION AT THIS TIME. DURING REPOSITIONING OF PT, ETT BECAME DISLODGED AND PULLED OUT TO 19 CM LIP CECILIO (WAS AT 26). DMITRY FAIR USED GLIDESCOPE TO REINSERT TO CORRECT POSITION AND PCXR DONE TO CONFIRM PLACEMENT. CXR READ BY SANDING SUPERVISOR. RESP THERAPIST AT BEDSIDE TO ASSIST. NO COMPICATION WITH PROCEDURE. VITAL SIGNS STABLE. BP STABLE TO LEVOPHED. U/O GRADUALLY DECREASED UNTIL PT RECEIVED LASIX AND ALBUMIN AROUND 0200 AND THEN U/O PICKED UP. MONITOR SHOWS NSR, HR 70'S, RARE PVC NOTED.
[2020-08-03 05:44] LABS: Hematocrit 25.8 % (42-52); Hemoglobin 8.2 g/dl (14.0-18.0); Mean Corpuscular HGB Conc 31.8 g/dl (31.0-36.0); Mean Corpuscular Hemoglobin 27.9 pg (27.0-33.0); Mean Corpuscular Volume 87.8 fL (80-98); Mean Platelet Volume 10.9 fL (9.4-12.4); NRBC Pct Auto 0.1 /100WBC (0.0-0.2); Platelet Count 375 X10*3/uL (160-400); Red Blood Count 2.94 X10*6/uL (4.60-5.80); Red Cell Distribution Width 18.6 % (11.0-16.0); White Blood Count 21.5 X10*3/uL (4.8-10.8)
[2020-08-03 06:03] LABS: Atypical Lymph Absolute Manual 0.2 x10*3/uL; Atypical Lymphs Percent Manual 1 % (0-6); Band Neutrophils Percent 4 % (3-5); Basophils Abs Manual 0.2 X10*3/uL (0.0-0.3); Basophils Percent Manual 1 % (0-1); Eosinophils Absolute Manual 1.1 X10*3/UL (0.0-0.8); Eosinophils Percent Manual 5 % (0-4); Lymphocytes Absolute Manual 1.9 X10*3/uL (0.6-4.8); Lymphocytes Percent Manual 9 % (20-40); Metamyelocytes Absolute 0.6 X10*3/uL; Metamyelocytes Percent 3 %; Monocytes Absolute Manual 1.7 X10*3/uL (0.0-1.2); Monocytes Percent Manual 8 % (2-11); Myelocytes Absolute 0.2 X10*/uL; Myelocytes Percent 1 %; Neutrophils Absolute Manual 15.5 X10*3/uL (2.2-7.9); Neutrophils Percent Manual 68 % (45-73)
[2020-08-03 06:08] LABS: Large Platelet PRESENT; Microcytosis 1+; Platelet Estimate NORMAL (NORMAL); RBC Morphology NOTED; Toxic Vacuolation PRESENT
[2020-08-03 06:09] LABS: Acanthocytes 1+; Base Excess VBG -3.7 mmol/L; HCO3 VBG 21 mmol/L; Hypochromasia 1+; Oxygen Saturation VBG 80.7 %; PCO2 VBG 38 mmhg; PO2 VBG 43 mmhg; Polychromasia 1+; Spherocytes 1+; pH VBG 7.37 (7.32-7.43)
[2020-08-03 06:13] LABS: Albumin Level 3.7 g/dL (3.5-5.0); Anion Gap 14 (12-20); Blood Urea Nitrogen 40 mg/dL (9-16); Calcium 8.4 mg/dL (8.4-10.2); Carbon Dioxide 20 mmol/L (22-29); Chloride 112 mmol/L (96-108); Estimated Glomerular Filt Rate > 60; Glucose Random 172 mg/dL (60-115); Magnesium 2.1 mg/dL (1.6-2.6); Potassium 3.5 mmol/l (3.3-5.1); Sodium 142 mmol/L (135-145)
[2020-08-03] MEDS: Chlorhexidine Gluc Oral Rinse 15 ML MOUTHWASH BUCCAL ×3 (06:18→20:05)
[2020-08-03] MEDS: Albuterol/Iprat 2.5/0.5MG 3 ML AMPUL.NEB INHALE ×3 (07:36→19:46)
[2020-08-03] MEDS: Levothyroxine Sodium 100 MCG VIAL 50 MCG IVPUSH (09:00)
[2020-08-03] MEDS: Potassium Chloride/H20 20 MEQ/100 ML PIGGYBACK 100 MEQ IV (09:40)
--- NOTE | 2020-08-03 11:07 | PC.NURSE ---
Addendum entered by Kallie Tovar 08/03/20 17:43: Correction size 8 ET tube NOT 7.5 Original Note: [address] Breen p[t was titrated down on sedation until Zero. Pt placed on PSV 10 by resp 1023 ET tube replaced ( 7.5 25 @ lip bite block in place) by Dr Breen with resp therapy at bedside pt tolerated well. minimal ectopy or distress noted. Pt remains with increased resp Rate 35. Pt tolerated sedation vacation until 1050 when he began with increased RR, WOB, increase of BP. Sedation restarted. Pt suctioned for mod amount of thick blood tinged sputum. pt placed back on AC vent setting of Rate 22 TV 450 Fio2 30 peep 5 at 1051 coarse LS noted anteriorly
[2020-08-03] MEDS: Metoprolol Tartrate 5 MG in 0.9 % Sodium Chloride 50 ML 200 MG IV ×2 (11:40→17:57)
[2020-08-03 12:14] LABS: Troponin-I High Sensitivity 76.4 ng/L (<3.5-35.0)
--- NOTE | 2020-08-03 13:48 | P.PNCC_ITS ---
Subjective Subjective Date of Service: 08/03/20 Interval History: 70-year-old gentleman with underlying history of non-Hodgkin's lymphoma, CLL, schizoaffective disorder admitted on 07/25/2020 with alteration of mental status requiring intubation for airway protection in the emergency room. Encephalitis workup negative including CSF studies. CT head with no acute findings. Extubated 07/28/2020. Hospital course further complicated by development of acute cardiomyopathy, ventricular tachycardia likely secondary to takotsubo stress cardiomyopathy, acute kidney injury, and acute hypoxic respiratory failure requiring re-intubation on 07/30/2020. No events overnight. Did not tolerate pressure support trial today. Physical Exam 2 Vital Signs: Vital Signs: Last Vital Signs Temp 98.8 F 08/03/20 13:00 Pulse 80 08/03/20 13:00 Resp 30 H 08/03/20 13:00 BP 111/62 08/03/20 13:00 Pulse Ox 100 08/03/20 13:00 Body Mass Index 26.7 Const: General: no acute distress and other ( Sedated on the vent) Eyes: Sclerae: sclerae normal Neck: Neck: Yes no lymphadenopathy, Yes trachea midline and Yes supple Resp: Auscultation: clear to auscultation bilaterally Cardio: Rate: regular rate Rhythm: regular rhythm Heart sounds: no gallops, no murmurs and no rubs GI: Palpation (GI): Soft to palpation and Other GI palpation findings present ( Nontender) Auscultation: normal bowel sounds : General: Yes other ( scrotal edema) Extrem: General: No clubbing, No cyanosis and Yes edema ( 1+ bilateral) Objective Data Labs CBC & Chem 7: 08/03/20 05:11 08/03/20 05:11 Labs: Laboratory Results - last 24 hr 08/03/20 08/03/20 08/03/20 05:11 05:11 05:11 WBC 21.5 H RBC 2.94 L Hgb 8.2 L Hct 25.8 L MCV 87.8 MCH 27.9 MCHC 31.8 RDW 18.6 H Plt Count 375 MPV 10.9 Immature Gran % (Auto) Cancelled Neut % (Auto) Cancelled Lymph % (Auto) Cancelled [place] % (Auto) Cancelled Eos % (Auto) Cancelled Baso % (Auto) Cancelled Lymph # (Auto) Cancelled [place] # (Auto) Cancelled Eos # (Auto) Cancelled Baso # (Auto) Cancelled Abs Immat Gran (auto) Cancelled Absolute Neuts (auto) Cancelled Absolute Nucleated RBC 0.020 H Nucleated RBC % (auto) 0.1 Neutrophils % (Manual) 68 Band Neutrophils % 4 Lymphocytes % (Manual) 9 L Atypical Lymphs % (Man) 1 Monocytes % (Manual) 8 Eosinophils % (Manual) 5 H Basophils % (Manual) 1 Metamyelocytes % 3 Myelocytes % 1 Abs Neuts (Manual) 15.5 H Lymphocytes # (Manual) 1.9 Atyp Lymphs # (Manual) 0.2 Monocytes # (Manual) 1.7 H Eosinophils # (Manual) 1.1 H Basophils # (Manual) 0.2 Metamyelocytes # 0.6 Myelocytes # 0.2 Toxic Vacuolation PRESENT Platelet Estimate NORMAL Large Platelets PRESENT Plt Morphology Comment AGRA RBC Morphology NOTED Polychromasia 1+ Hypochromasia 1+ Microcytosis 1+ Spherocytes 1+ Acanthocytes (Spur) 1+ VBG pH 7.37 VBG pCO2 38 VBG pO2 43 VBG HCO3 21 VBG O2 Saturation 80.7 VBG Base Excess -3.7 Sodium 142 Potassium 3.5 Chloride 112 H Carbon Dioxide 20 L Anion Gap 14 BUN 40 H Creatinine 0.96 Estim Creat Clear Calc 89.0 Estimated GFR > 60 Random Glucose 172 H Calcium 8.4 Phosphorus 3.0 Magnesium 2.1 Troponin I High Sens Albumin 3.7 08/03/20 11:26 WBC RBC Hgb Hct MCV MCH MCHC RDW Plt Count MPV Immature Gran % (Auto) Neut % (Auto) Lymph % (Auto) [place] % (Auto) Eos % (Auto) Baso % (Auto) Lymph # (Auto) [place] # (Auto) Eos # (Auto) Baso # (Auto) Abs Immat Gran (auto) Absolute Neuts (auto) Absolute Nucleated RBC Nucleated RBC % (auto) Neutrophils % (Manual) Band Neutrophils % Lymphocytes % (Manual) Atypical Lymphs % (Man) Monocytes % (Manual) Eosinophils % (Manual) Basophils % (Manual) Metamyelocytes % Myelocytes % Abs Neuts (Manual) Lymphocytes # (Manual) Atyp Lymphs # (Manual) Monocytes # (Manual) Eosinophils # (Manual) Basophils # (Manual) Metamyelocytes # Myelocytes # Toxic Vacuolation Platelet Estimate Large Platelets Plt Morphology Comment RBC Morphology Polychromasia Hypochromasia Microcytosis Spherocytes Acanthocytes (Spur) VBG pH VBG pCO2 VBG pO2 VBG HCO3 VBG O2 Saturation VBG Base Excess Sodium Potassium Chloride Carbon Dioxide Anion Gap BUN Creatinine Estim Creat Clear Calc Estimated GFR Random Glucose Calcium Phosphorus Magnesium Troponin I High Sens 76.4 H D Albumin Microbiology Microbiology Results: Microbiology 07/25/20 10:28 Blood - Venous Blood Culture - Final Coagulase-neg Staphyloccocus 07/25/20 10:59 Blood - Venous Blood Culture - Final No growth after 5 days. 07/25/20 15:07 Cerebrospinal Fluid Gram Stain - Final 07/25/20 15:07 Cerebrospinal Fluid CSF Examination - Final 07/25/20 15:07 Cerebrospinal Fluid Gross Specimen Examination - Final 07/25/20 15:07 Cerebrospinal Fluid CSF Culture - Final No growth after 3 days. 07/25/20 17:48 Urine Catheterized - Hill Catheter Urine Culture - Final No growth. 07/25/20 17:48 Sputum - Suctioned Gram Stain - Final 07/25/20 17:48 Sputum - Suctioned Sputum Culture - Final Progress Note: A&P Assessment and plan (1) Cardiomyopathy: Status: Acute Assessment and Plan: Assessment: 70-year-old gentleman with underlying history of remote non- Hodgkin's lymphoma and CLL, also schizoaffective disorder admitted with acute alteration of mental status of unclear etiology requiring intubation and ventilatory support, further complicated by acute cardiomyopathy, renal failure, and episodes of ventricular tachycardia. Plan: Neuro: Acute encephalopathy of unclear etiology. Now sedated on ventilatory support. Cardiac: Acute cardiomyopathy. Cardiology service care appreciated. Likely Takotsubo's stress cardiomyopathy With intermittent ventricular tachycardia. Continue to avoid amiodarone and use lidocaine as needed. May require later left heart catheterization. Status post heparin drip for 48 hours. Repeat echo in a.m. ordered. Pulmonary: Acute respiratory failure requiring ventilatory support. Extubated 07/28/2020. Worsened overnight in required re-intubation 07/29/2020. Continue to titrate off ventilatory support as tolerated. Did not tolerate pressure support trial today. Renal: Acute renal failure, likely related to poor for flow with underlying acute cardiomyopathy, improved. Non oliguric. Continue to monitor urine output and renal indices. Now with significant edema, improving with gentle diuresis. Endo: No acute issues. GI: No acute issues. ID: No evidence of bacteremia, early coagulase negative Staph blood culture is a contaminant. Heme/Onc: No acute issues. Psych: No acute issues. Miscellaneous: No acute issues. Prophylaxis: Lovenox, Famotidine Diet: tube feeds Critical care time spent: 60 minutes (2) Acute respiratory failure: Status: Acute (3) Acute metabolic encephalopathy: Status: Acute Time Spent With Patient Total time spent with greater than 50% in coordination of care (as documented) at patient's floor/unit and/or counseling patient:: 0 Critical Care Time Critical Care Time (minutes): 60
[2020-08-03] MEDS: Enoxaparin Sodium 40 MG/0.4 ML SYRINGE SUBCUT (17:55)
--- NOTE | 2020-08-03 18:35 | PC.NURSE ---
Addendum entered by Kallie Tovar 08/03/20 18:54: PT suctioned for thick blood tinged mucus at 1820 Original Note: pt remains tachypniec 33-37 pt diuresed 600ml urine this afternoon after lasix. Pt LS improved today. Pt cardiac irritability continues multifocal PVCs, PAC, Couplets and inverted T waves. Norepi turned off at 1700 in hopes that irritability improved Dr andrade aware. HR and BP decreased after lopressor 1800. Plan is repeat ECHO tomorrow. Pt Micki called for update referred us to speak with Daughter Mary [phone].
[2020-08-04] VITALS (39 sets, daily range): BP systolic 75–197; BP diastolic 52–74; PULSE 71–94; RESP 15–34; TEMP 36.7–37.5; O2SAT 91–100; BMI 27.9
--- NOTE | 2020-08-04 | ECG_ITS ---
Test Reason : r/o ischemia Blood Pressure : / mmHG Vent. Rate : 073 BPM Atrial Rate : 073 BPM P-R Int : 138 ms QRS Dur : 074 ms QT Int : 454 ms P-R-T Axes : 025 -23 095 degrees QTc Int : 500 ms Sinus rhythm with Premature supraventricular complexes Inferior infarct (cited on or before 30-JUL-2020) ST & T wave abnormality, consider anterior ischemia Abnormal ECG When compared with ECG of 31-JUL-2020 10:11, Premature supraventricular complexes are now Present Referred By: Duke Kirby Electronically Signed By:IBAN BAUER MD
[2020-08-04] MEDS: Metoprolol Tartrate 5 MG in 0.9 % Sodium Chloride 50 ML 200 MG IV ×4 (00:15→18:24)
[2020-08-04] MEDS: propofoL 1,000 MG/100 ML VIAL 29.85 MG IVCONT ×4 (00:15→10:20)
[2020-08-04] MEDS: fentaNYL citrate/NS 1,000 MCG/100 ML PLAST..BAG 20 MCG IVCONT ×5 (01:35→20:28)
[2020-08-04] MEDS: Furosemide 20 MG/2 ML VIAL IVPUSH ×2 (01:35→13:29)
[2020-08-04 06:07] LABS: Hematocrit 27.7 % (42-52); Hemoglobin 8.8 g/dl (14.0-18.0); Mean Corpuscular HGB Conc 31.8 g/dl (31.0-36.0); Mean Corpuscular Hemoglobin 27.8 pg (27.0-33.0); Mean Corpuscular Volume 87.4 fL (80-98); Platelet Count 446 X10*3/uL (160-400); Red Blood Count 3.17 X10*6/uL (4.60-5.80); Red Cell Distribution Width 18.6 % (11.0-16.0)
[2020-08-04 06:28] LABS: Base Excess VBG -4.6 mmol/L; HCO3 VBG 20 mmol/L; Oxygen Saturation VBG 74.8 %; PCO2 VBG 33 mmhg; PO2 VBG 38 mmhg; pH VBG 7.39 (7.32-7.43)
[2020-08-04 06:32] LABS: Alanine Aminotransferase 9 U/L (0-40); Albumin Level 3.4 g/dL (3.5-5.0); Alkaline Phosphatase 142 U/L (39-117); Anion Gap 15 (12-20); Aspartate Amino Transferase 16 U/L (5-37); Bilirubin Total 0.6 mg/dL (0.0-1.0); Blood Urea Nitrogen 38 mg/dL (9-16); Calcium 8.3 mg/dL (8.4-10.2); Carbon Dioxide 21 mmol/L (22-29); Chloride 110 mmol/L (96-108); Creatinine Clr Calc Pharmacy 95.3; Estimated Glomerular Filt Rate > 60; Glucose Random 134 mg/dL (60-115); Phosphorus 2.6 mg/dL (2.7-4.5); Potassium 3.6 mmol/l (3.3-5.1); Sodium 142 mmol/L (135-145); Total Protein 5.4 g/dL (6.5-8.0)
[2020-08-04] MEDS: 0.9 % Sodium Chloride Flush 3 ML SYRINGE IVFLUSH ×2 (07:34→17:36)
[2020-08-04] MEDS: Chlorhexidine Gluc Oral Rinse 15 ML MOUTHWASH BUCCAL ×3 (07:34→20:27)
[2020-08-04 07:49] LABS: Basophils Abs Manual 0.2 X10*3/uL (0.0-0.3); Basophils Percent Manual 1 % (0-1); Eosinophils Absolute Manual 1.5 X10*3/UL (0.0-0.8); Eosinophils Percent Manual 7 % (0-4); Lymphocytes Absolute Manual 3.3 X10*3/uL (0.6-4.8); Lymphocytes Percent Manual 15 % (20-40); Metamyelocytes Absolute 0.4 X10*3/uL; Metamyelocytes Percent 2 %; Monocytes Absolute Manual 2.4 X10*3/uL (0.0-1.2); Monocytes Percent Manual 11 % (2-11); Neutrophils Percent Manual 64 % (45-73)
[2020-08-04 07:51] LABS: Hypochromasia 1+; RBC Morphology NOTED
[2020-08-04 07:55] LABS: Acanthocytes 1+; Polychromasia 1+; Toxic Vacuolation PRESENT
[2020-08-04 07:56] LABS: Platelet Estimate SLIGHTLY INCREASED (NORMAL)
[2020-08-04 07:57] LABS: Platelet Morphology Comment NORMAL
[2020-08-04 08:09] LABS: Band Neutrophils Percent 0 % (3-5); Neutrophils Absolute Manual 14.1 X10*3/uL (2.2-7.9)
[2020-08-04] MEDS: Albuterol/Iprat 2.5/0.5MG 3 ML AMPUL.NEB INHALE ×3 (08:48→20:32)
[2020-08-04] MEDS: Levothyroxine Sodium 100 MCG VIAL 50 MCG IVPUSH (09:05)
--- NOTE | 2020-08-04 10:33 | MHC.CM.PN ---
at this time pt is in ICU; intubated, vented and sedated. dc planning is deferred to a future time. cm cont. to follow.
--- NOTE | 2020-08-04 10:48 | MHC.CLN ---
F/U RECOMMEND INCREASING TF JEVITY AT MAX GOAL RATE 65CC/HR WITH 240CC FREE WATER FLUSHES Q 6 TO PROVIDE 1653KCALS (2441KCALS WITH SEDATION; 25KCALS/KG), 69G PROTEIN (.7G/KG), 2262CC TOTAL WATER FROM FORMULA AND FLUSHES (23CC/KG) MONITOR TOLERANCE, RESIDUALS AND LYTES
--- NOTE | 2020-08-04 11:09 | PM.PNCARD ---
Subjective Subjective Date of Service: 08/04/20 Principal diagnosis: Respiratory failure, cardiomyopathy, VT Interval history: no overnight ventricular tachycardia noted. Isolated PVCs noted. Patient remains intubated. Not being able to be extubated with increased work of breathing noted. Review of Systems Review of Systems Yes unobtainable due to endotracheal tube, Unobtainable due to mental condition and Unobtainable due to mental status Reports confusion Psychiatric: Reports confusion Physical Exam Vital Signs: Last Vital Signs Temp 98.1 F 08/04/20 11:00 Pulse 76 08/04/20 11:00 Resp 31 H 08/04/20 11:00 BP 104/61 08/04/20 11:00 Pulse Ox 93 08/04/20 11:00 Body Mass Index 27.9 Const General: confusion Orientation/consciousness: confusion HENMT Head: Yes normocephalic and Yes atraumatic Neck Neck: Yes no JVD and Yes other ( Endotracheal tube in place) Chest Other: increased work of breathing Resp Effort & Inspection: paradoxical thoraco-abdominal movements Auscultation: no rales, diminished lung sounds and other ( coarse transmitted breath sounds) Cardio Palpation: normal PMI Rate: regular rate Rhythm: regular rhythm and abnormal rhythm with ectopic beats Heart sounds: S1 normal heart sound present and S2 normal heart sound present GI Inspection: Yes distended Auscultation: normal bowel sounds Neuro Other: cannot be tested due to current medical status General: confusion Extrem General: Yes no clubbing, cyanosis or edema Results Labs and Meds Result diagrams: 08/04/20 05:29 08/04/20 05:29 Lab results: Laboratory Results - last 24 hr 08/03/20 08/04/20 08/04/20 11:26 05:29 05:29 WBC Cancelled 22.0 H RBC Cancelled 3.17 L Hgb Cancelled 8.8 L Hct Cancelled 27.7 L MCV Cancelled 87.4 MCH Cancelled 27.8 MCHC Cancelled 31.8 RDW Cancelled 18.6 H Plt Count Cancelled 446 H MPV Cancelled 11.0 Immature Gran % (Auto) Cancelled Neut % (Auto) Cancelled Lymph % (Auto) Cancelled [place] % (Auto) Cancelled Eos % (Auto) Cancelled Baso % (Auto) Cancelled Lymph # (Auto) Cancelled [place] # (Auto) Cancelled Eos # (Auto) Cancelled Baso # (Auto) Cancelled Abs Immat Gran (auto) Cancelled Absolute Neuts (auto) Cancelled Absolute Nucleated RBC Cancelled 0.000 Nucleated RBC % (auto) Cancelled 0.0 Neutrophils % (Manual) 64 Band Neutrophils % 0 L Lymphocytes % (Manual) 15 L Monocytes % (Manual) 11 Eosinophils % (Manual) 7 H Basophils % (Manual) 1 Metamyelocytes % 2 Abs Neuts (Manual) 14.1 H Lymphocytes # (Manual) 3.3 Monocytes # (Manual) 2.4 H Eosinophils # (Manual) 1.5 H Basophils # (Manual) 0.2 Metamyelocytes # 0.4 Toxic Vacuolation PRESENT Platelet Estimate SLIGHTLY INCREASED Plt Morphology Comment NORMAL RBC Morphology NOTED Polychromasia 1+ Hypochromasia 1+ Acanthocytes (Spur) 1+ VBG pH VBG pCO2 VBG pO2 VBG HCO3 VBG O2 Saturation VBG Base Excess Sodium Potassium Chloride Carbon Dioxide Anion Gap BUN Creatinine Estim Creat Clear Calc Estimated GFR Random Glucose Calcium Phosphorus Magnesium Total Bilirubin AST ALT Alkaline Phosphatase Troponin I High Sens 76.4 H D Total Protein Albumin 08/04/20 08/04/20 05:29 05:29 WBC RBC Hgb Hct MCV MCH MCHC RDW Plt Count MPV Immature Gran % (Auto) Neut % (Auto) Lymph % (Auto) [place] % (Auto) Eos % (Auto) Baso % (Auto) Lymph # (Auto) [place] # (Auto) Eos # (Auto) Baso # (Auto) Abs Immat Gran (auto) Absolute Neuts (auto) Absolute Nucleated RBC Nucleated RBC % (auto) Neutrophils % (Manual) Band Neutrophils % Lymphocytes % (Manual) Monocytes % (Manual) Eosinophils % (Manual) Basophils % (Manual) Metamyelocytes % Abs Neuts (Manual) Lymphocytes # (Manual) Monocytes # (Manual) Eosinophils # (Manual) Basophils # (Manual) Metamyelocytes # Toxic Vacuolation Platelet Estimate Plt Morphology Comment RBC Morphology Polychromasia Hypochromasia Acanthocytes (Spur) VBG pH 7.39 VBG pCO2 33 VBG pO2 38 VBG HCO3 20 VBG O2 Saturation 74.8 VBG Base Excess -4.6 Sodium 142 Potassium 3.6 Chloride 110 H Carbon Dioxide 21 L Anion Gap 15 BUN 38 H Creatinine 0.88 Estim Creat Clear Calc 95.3 Estimated GFR > 60 Random Glucose 134 H Calcium 8.3 L Phosphorus 2.6 L Magnesium 2.0 Total Bilirubin 0.6 AST 16 ALT 9 Alkaline Phosphatase 142 H Troponin I High Sens Total Protein 5.4 L Albumin 3.4 L Progress Note: A&P Assessment and plan (1) Cardiomyopathy: Status: Acute Assessment and Plan: appears like acute cardiomyopathy, most consistent with stress-induced cardiomyopathy with mid ventricular variant of takotsubo cardiomyopathy. There is acute reduction in overall LV systolic function. However there is no prior echocardiogram that was done of fistulae and documented if there was a sudden change in his LV systolic function. Troponin elevation consistent takotsubo cardiomyopathy. EKG changes consistent with that as well. Repeat echocardiogram to see if the LV systolic dysfunction is persistent. Continue metoprolol therapy for neurohormonal modulation. if persists with significant LV systolic dysfunction there is failure to wean him of the respirator due to increased cardiac work and/or heart failure related to it, afterload reduction with a cm if tolerated or need for inotropics support can be considered at that point in time. Stressed induced cardiomyopathy usually reverse quickly. Will follow-up after echocardiogram. Clinically today does not appear to be in overt heart failure with his oxygen requirement near normal. (2) Ventricular tachycardia: Status: Acute Assessment and Plan: Remained suppressed. No clear increased activity at this time. He does have PVCs. Continue metoprolol therapy to suppress the same. (3) Acute respiratory failure: Status: Acute Assessment and Plan: Not currently sure of current etiology. Does not appear to be in florid heart failure. Question ARDS related to sepsis versus aspiration. Being followed by the intensive care unit team. Continue ventilatory support as needed. Fall Risk Details Current Medications: Current Medications Generic Name Dose Route Start Last Admin Trade Name Freq PRN Reason Stop Dose Admin Albuterol/Ipratropium 3 ml 08/02/20 08:00 08/04/20 08:48 Albuterol/Iprat 2.5/0.5mg 3 Ml Ampul.Neb INHALE 3 ml RQ6H WHILE AWAKE SERINA Administration Chlorhexidine Gluconate 15 ml 07/30/20 23:00 08/04/20 07:34 Chlorhexidine Gluc Oral Rinse 15 Ml Mouthwash BUCCAL 15 ml Q8H SERINA Administration Enoxaparin Sodium 40 mg 08/02/20 18:00 08/03/20 17:55 Enoxaparin Sodium 40 Mg/0.4 Ml Syringe SUBCUT 40 mg Q24H SERINA Administration Furosemide 20 mg 08/02/20 13:30 08/04/20 01:35 Furosemide 20 Mg/2 Ml Vial IVPUSH 20 mg Q12H SERINA Administration Protocol Propofol 1,000 mg in 100 mls @ 0 mls/hr 07/30/20 22:45 08/04/20 10:20 Diprivan IVCONT 50 mcg/kg/min .Q0M SERINA 29.85 mls/hr Administration Protocol Per Protocol Fentanyl 1,000 mcg in 100 mls @ 0 mls/hr 07/31/20 00:30 08/04/20 10:26 Sublimaze/Ns IVCONT 200 mcg/hr .Q0M SERINA 20 mls/hr Administration Protocol Per Protocol Norepinephrine Bitartrate 8 mg in 250 mls @ 0 mls/hr 07/31/20 16:45 08/03/20 17:03 Levophed IVCONT 0 mcg/kg/min .Q0M SERINA 0 mls/hr Titration Protocol Per Protocol Esmolol HCl 2,500 mg in 250 mls @ 0 mls/hr 07/31/20 16:45 08/02/20 02:19 Brevibloc/Nacl IVCONT 0 mcg/kg/min .Q0M SERINA 0 mls/hr Titration Protocol Per Protocol Metoprolol Tartrate 5 mg/ 55 mls @ 200 mls/hr 08/03/20 12:00 08/04/20 06:16 Sodium Chloride IV Infused Q6H SERINA Infusion Levothyroxine Sodium 50 mcg 07/26/20 09:00 08/04/20 09:05 Levothyroxine Sodium 100 Mcg Vial IVPUSH 50 mcg DAILY SERINA Administration Lidocaine HCl 50 mg 07/30/20 19:37 Lidocaine Hcl/Pf 100 Mg/5 Ml Syringe IV Q15M PRN Heart Rate > 300 Naloxone HCl 0.2 mg 07/25/20 15:56 Naloxone Hcl 0.4 Mg/Ml Vial IVPUSH Q2M PRN Excessive sedation or RR < 8 Pharmacy Consult 1 each 07/25/20 14:13 Consult Rx Perform Med Rec MISCELLANE ONCE PRN Consult order Sodium Chloride 3 ml 07/25/20 16:00 08/04/20 07:34 0.9 % Sodium Chloride Flush 3 Ml Syringe IVFLUSH 3 ml QSHIFT SERINA Administration Time Spent With Patient Time: Total time spent is greater than 50% in coordination of care (as documented) at patient's floor/unit and/or counseling patient: Time with patient: 15 - 24 minutes
--- NOTE | 2020-08-04 11:19 | MHC.SLORD ---
Patient is on vent. Bedside dysphagia evaluation pending 24-48 hours after extubation. Name: Can Baltazar Date of : 1950 Age: 70 Date of Registration: 07/25/20 Speech Language Pathology Order Status:
[2020-08-04 11:26] LABS: HCO3 VBG 22 mmol/L; Oxygen Saturation VBG 74.9 %; PCO2 VBG 38 mmhg; PO2 VBG 37 mmhg; pH VBG 7.38 (7.32-7.43)
[2020-08-04 11:28] LABS: Blood Gas Serial # 5414
--- NOTE | 2020-08-04 12:33 | P.PNCC_ITS ---
Subjective Subjective Date of Service: 08/05/20 Interval History: Mr. Baltazar was admitted to ICU on July 25 with acute respiratory failure. 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 Was recently hospitalized at [facility] for cellulitis, and discharged from there for STR at [facility]. 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 The patient was sent to the ED on Jul 25 bec of confusion and change in mental status. Last seen by nurse practitioner on 07/21, and at that time reportedly the patient was healthy appearing, well nourished and well developed, without any significant change in mental status. In the ED was altered and became markedly delirious and agitated, requiring urgent intubation for airway protection. Underwent CT and diagnostic LP, both negative. Altered mental status thought possibly secondary to unintentional opioid overdose. Was initially empirically treated with vancomycin, Zosyn, and acyclovir, and admitted to ICU. Antibiotics subsequently changed to doxycycline for Gram-positive cocci in sputum and a left lower lobe infiltrate. Was extubated on July 28. At that time was reportedly confused but redirectable. On the night of July 29, the patient had multiple episodes of ventricular tachycardia. The following morning, an echo showed marked cardiomyopathy, w normal LV cavity size, moderately increased wall thickness, and severely decreased systolic function, EF 20-25%, with notable RWMAs. Overall suggestive of Takotsubo cardiomyopathy. Right atrial pressure was elevated with moderate pulmonary hypertension. Troponin bumped to 1500. The patient was given beta augustina, aspirin, and heparin drip x 48 hrs. Later that day, the patient developed respiratory distress refractory to noninvasive ventilation and required emergent intubation for hypoxemia and worsening mental status. Never had severe hypoxemia. Developed nonoliguric PATY presumed 2? poor forward flow. The last two days, attempts at weaning with PSV were assoc with flipped T waves, but no new enzyme bumps. Today, sedated on propofol at 50ug and fentanyl at 150ug. Not responsive to commands even when propofol was cut in half. See Vital Signs below. The patient is afebrile. HR 75, BP 90/54, RR 29, ETCO2 28, Sat 100% on vent settings AC 22/450/30%/+5, with PIP 16, Sat 100%. Central venous blood gas this morning showed 7.38/38/-3. Pupils are equal round and miotic. No JVD at 30?. Chest is clear to auscultation with low-pitched breath sounds. Regular rate and rhythm, with normal-sounding S1 and S2, with no murmur or gallops. The abdomen is benign. He has 1-2 +central edema. Chronic lymphedema of the left lower leg. The lower leg is dressed and I did not take the dressing down. LABORATORY DATA: As below. Notably, white count has been elevated and pretty much stable in the 17-22 range since admission. BUN and creatinine down to 38/0.88, the lowest they have been. Phosphorus down to 2.6. Albumin is 3.4. IMAGING: Last chest x-ray from yesterday shows patchy bilateral airspace opacities, particularly in the left retrocardiac region. The left hemidiaphragmatic contour is obscured. MICRO: Last cultures are from July 25. Most particularly, sputum Gram stain showed a mixed respiratory geoff with no unique culture result. CURRENT MEDICATIONS INCLUDE: Lovenox 40 mg daily Lasix 20 mg IV bid. Thyroid daily Metoprolol 5 mg IV Q6 (No Abx) VENTILATOR MANAGEMENT: When we cut the patient's ventilator rate down to 14, his respiratory rate went up to 30-33 and his work of breathing dramatically increased -- despite being on high dose fentanyl infusion. ECHOCARDIOGRAM repeated today. I viewed it with the tech at the bedside. Both ventricular volumes look normal. Left ventricular ejection fraction to me looks about 30-40%. No mitral regurgitation or significant tricuspid regurgitation today. IVC is normal size today but with less than 50% inspiratory collapse. IMPRESSION: 1. Altered mental status. Etiology still undetermined. We?ll have to do a complete sedative holiday and see what happens. Might also need a repeat CT. 2. Bilat pulmon infiltrates. ? 2? to aspiration. His near normal AA gradient suggests that these infiltrates are not pneumonia. We will resend sputum cultures. 3. Acute resp failure. Compliance and A-a gradient are near normal, suggesting no real need for mech ventilation. And his high Ve seems centrally driven, given his very low pCO2. 4. CMOP. LV function is improved on today's echo. No further episodes of ventricular tachycardia. The cause of his cardiomyopathy remains unclear. Likely needs a left heart cath. 5. Acute kidney injury. Unclear what his baseline renal indices are. Regardless, his current numbers are improving with diuresis. Continue with the Lasix, as above. 6. ID: No evidence of bacteremia (early coagulase negative Staph blood culture is a contaminant), or other infection. Cause of leukocytosis is probably the CLL (WBC was 17 on Jul 10, 2020). 7. H/o non-Hodgkin's lymphoma and CLL. Not sure what?s the status of those. Critical care time (including multiple visits to the bedside, extended chart re view, extended hospital course summary, and mult d/w Dr. Breen and Dr. Redd): 110 min. Physical Exam Vital Signs: Vital Signs: Last Vital Signs Temp 98.2 F 08/04/20 12:00 Pulse 76 08/04/20 12:00 Resp 33 H 08/04/20 12:00 BP 95/52 L 08/04/20 12:00 Pulse Ox 94 08/04/20 12:00 Body Mass Index 27.9 Objective Data Labs CBC & Chem 7: 08/05/20 05:29 08/05/20 05:29 Labs: Laboratory Results - last 24 hr 08/04/20 08/04/20 08/04/20 05:29 05:29 05:29 WBC Cancelled 22.0 H RBC Cancelled 3.17 L Hgb Cancelled 8.8 L Hct Cancelled 27.7 L MCV Cancelled 87.4 MCH Cancelled 27.8 MCHC Cancelled 31.8 RDW Cancelled 18.6 H Plt Count Cancelled 446 H MPV Cancelled 11.0 Immature Gran % (Auto) Cancelled Neut % (Auto) Cancelled Lymph % (Auto) Cancelled [place] % (Auto) Cancelled Eos % (Auto) Cancelled Baso % (Auto) Cancelled Lymph # (Auto) Cancelled [place] # (Auto) Cancelled Eos # (Auto) Cancelled Baso # (Auto) Cancelled Abs Immat Gran (auto) Cancelled Absolute Neuts (auto) Cancelled Absolute Nucleated RBC Cancelled 0.000 Nucleated RBC % (auto) Cancelled 0.0 Neutrophils % (Manual) 64 Band Neutrophils % 0 L Lymphocytes % (Manual) 15 L Monocytes % (Manual) 11 Eosinophils % (Manual) 7 H Basophils % (Manual) 1 Metamyelocytes % 2 Abs Neuts (Manual) 14.1 H Lymphocytes # (Manual) 3.3 Monocytes # (Manual) 2.4 H Eosinophils # (Manual) 1.5 H Basophils # (Manual) 0.2 Metamyelocytes # 0.4 Toxic Vacuolation PRESENT Platelet Estimate SLIGHTLY INCREASED Plt Morphology Comment NORMAL RBC Morphology NOTED Polychromasia 1+ Hypochromasia 1+ Acanthocytes (Spur) 1+ VBG pH VBG pCO2 VBG pO2 VBG HCO3 VBG O2 Saturation VBG Base Excess Sodium 142 Potassium 3.6 Chloride 110 H Carbon Dioxide 21 L Anion Gap 15 BUN 38 H Creatinine 0.88 Estim Creat Clear Calc 95.3 Estimated GFR > 60 Random Glucose 134 H Calcium 8.3 L Phosphorus 2.6 L Magnesium 2.0 Total Bilirubin 0.6 AST 16 ALT 9 Alkaline Phosphatase 142 H Total Protein 5.4 L Albumin 3.4 L 08/04/20 08/04/20 05:29 11:15 WBC RBC Hgb Hct MCV MCH MCHC RDW Plt Count MPV Immature Gran % (Auto) Neut % (Auto) Lymph % (Auto) [place] % (Auto) Eos % (Auto) Baso % (Auto) Lymph # (Auto) [place] # (Auto) Eos # (Auto) Baso # (Auto) Abs Immat Gran (auto) Absolute Neuts (auto) Absolute Nucleated RBC Nucleated RBC % (auto) Neutrophils % (Manual) Band Neutrophils % Lymphocytes % (Manual) Monocytes % (Manual) Eosinophils % (Manual) Basophils % (Manual) Metamyelocytes % Abs Neuts (Manual) Lymphocytes # (Manual) Monocytes # (Manual) Eosinophils # (Manual) Basophils # (Manual) Metamyelocytes # Toxic Vacuolation Platelet Estimate Plt Morphology Comment RBC Morphology Polychromasia Hypochromasia Acanthocytes (Spur) VBG pH 7.39 7.38 VBG pCO2 33 38 VBG pO2 38 37 VBG HCO3 20 22 VBG O2 Saturation 74.8 74.9 VBG Base Excess -4.6 -3.0 Sodium Potassium Chloride Carbon Dioxide Anion Gap BUN Creatinine Estim Creat Clear Calc Estimated GFR Random Glucose Calcium Phosphorus Magnesium Total Bilirubin AST ALT Alkaline Phosphatase Total Protein Albumin Microbiology Microbiology Results: Microbiology 07/25/20 10:28 Blood - Venous Blood Culture - Final Coagulase-neg Staphyloccocus 07/25/20 10:59 Blood - Venous Blood Culture - Final No growth after 5 days. 07/25/20 15:07 Cerebrospinal Fluid Gram Stain - Final 07/25/20 15:07 Cerebrospinal Fluid CSF Examination - Final 07/25/20 15:07 Cerebrospinal Fluid Gross Specimen Examination - Final 07/25/20 15:07 Cerebrospinal Fluid CSF Culture - Final No growth after 3 days. 07/25/20 17:48 Urine Catheterized - Hill Catheter Urine Culture - Final No growth. 07/25/20 17:48 Sputum - Suctioned Gram Stain - Final 07/25/20 17:48 Sputum - Suctioned Sputum Culture - Final Progress Note: A&P Time Spent With Patient Time: Total time spent is greater than 50% in coordination of care (as documented) at patient's floor/unit and/or counseling patient: Total time spent with greater than 50% in coordination of care (as documented) at patient's floor/unit and/or counseling patient:: 0 Critical Care Time Critical Care Time (minutes): 120
--- NOTE | 2020-08-04 12:36 | PC.NURSE ---
bed side echo completed at noon, Dr Kirby at bedside to review findings. prior to Echo pt BP decreased to 90's MD notified. Pt BP dropped to 75/54 O2 Sat also decreased. Pt suctioned for thick blood tinged sputum Sat increased to 95% FiO2 21 Dr Kirby asked propofol to be decreased to 25 dt BP and hold on lopressor drip. pt urine output has been 15ml hour for the last 2 hours BP 111/63 HR 81 RR 33 at 1244.
--- NOTE | 2020-08-04 13:00 | CA_ITS ---
Transthoracic Echocardiogram Patient (Last, First, Middle): Can Baltazar, Gender: Male Date of : 1950 Age: 70 Procedure Date: 08/04/2020 Procedure Type: Transthoracic Echocardiogram Location: ICU Height: 185.42 cm Weight: 95.71 kg BSA: 2.20 m2 Heart Rate: bpm BP: 97 / 55 mmHg Offset Press Operator Apprentice: Referring MD: Blayne Campbell MD [employer] Coordinator: Giuseppe Redd MD Symptoms: Cardiomyopathy, reassess regional wall motion Study Quality: Fair ECG Rhythm: Sinus with extra beats Conclusions: - Mildly reduced LV systolic function with regional wall motion abnormality in LAD territory with impaired relaxation filling pattern Findings Left Ventricle Normal left ventricular cavity size. The left ventricular systolic function is mildly decreased. The visually estimated ejection fraction is between 45 50%. Spectral Doppler is indicative of an impaired relaxation filling pattern. E/E prime ratio is between 8 and 15 consistent with indeterminate filling pressures. Wall Motion Rest Echo Findings The apical anterior, mid anterior, apical septum, and mid anteroseptal segments are hypokinetic. The basal inferior segment is akinetic. The anterolateral wall and basal anterior segment are not visualized. All other scored wall segments showed normal motion. Pericardium/Pleural There is no evidence of pericardial effusion. Prior Study Comparison Significant changes compared to prior study dated: 07/30/2020. LV systolic function is improved. There is persistent wall motion abnormality in the LAD territory Measurements 2D Systolic Function EF 4C: 42.10 >55% EF 2C: 50.80 >55% EF BiP: 46.20 >55% Updated in Other Vendor System with Status of Final Giuseppe Redd MD electronically signed on 08/04/2020 4:16:50 PM with status of Final
[2020-08-04] MEDS: propofoL 1,000 MG/100 ML VIAL 14.93 MG IVCONT ×2 (14:33→22:04)
[2020-08-04] MEDS: HYDROmorphone HCl 2 MG/ML VIAL IVPUSH ×2 (14:45→20:27)
--- NOTE | 2020-08-04 17:58 | PC.NURSE ---
1440 pt had 2 spontaneous episodes of increased in WOB, RR to 50, HR 105 Dr Kirby at bedside ordered 2 mg Dilaudid IV as PRN for increased WOB. Pt had good effect with med, RR returned to HIS baseline of mid 30s. Pt vent setting have been changed to FiO2 of 21% from 30% peep and tidal remain at 5/450. Bed side echo completed at 1200. Dr Kirby to hold Lovenox tonight. Pt had 3 hours of Urine output 15ml this AM, pt diuresing well after Lasix. Pt testicals remain grossly edematous occasionally weeping. smearing of stool this shift less blood noted this PM
[2020-08-05] VITALS (34 sets, daily range): BP systolic 100–143; BP diastolic 51–81; PULSE 84–126; RESP 30–46; TEMP 37.4–38.2; O2SAT 89–95; BMI 27.9
--- NOTE | 2020-08-05 | XR_ITS ---
EXAMINATION: XR CHEST CLINICAL INFORMATION: Feeding tube COMPARISON: 08/03/2020 TECHNIQUE: Frontal view of the chest was obtained. FINDINGS: Endotracheal tube tip lies approximately 4.2 cm above the jael. Dobbhoff tube courses into the stomach, with tip not included on the image. Right IJ central line tip overlies the deep right atrium, similar to prior. Lungs are hypoinflated. Redemonstrated dense retrocardiac left basilar opacity and possible small left pleural effusion. Right perihilar aeration appears improved compared to prior. No pneumothorax is seen. The cardiomediastinal silhouette is stable. Degenerative changes are noted in the spine. XR/XR chest 1V IMPRESSION: 1. Dobbhoff tube courses into the stomach, with tip not included on the image. 2. Right IJ central line tip overlies the deep right atrium, approximately 6 cm below the cavoatrial junction. 3. Redemonstrated dense retrocardiac left basilar opacity and possible small left pleural effusion. 4. Improved right perihilar aeration.
[2020-08-05] MEDS: fentaNYL citrate/NS 1,000 MCG/100 ML PLAST..BAG 20 MCG IVCONT ×2 (02:01→06:06)
[2020-08-05] MEDS: Furosemide 20 MG/2 ML VIAL IVPUSH ×2 (02:01→13:05)
[2020-08-05] MEDS: HYDROmorphone HCl 2 MG/ML VIAL IVPUSH ×4 (03:08→21:39)
[2020-08-05] MEDS: propofoL 1,000 MG/100 ML VIAL 17.91 MG IVCONT (03:53)
[2020-08-05 06:02] LABS: Basophils Absolute Auto 0.1 X10*3/uL (0.0-0.2); Basophils Percent Auto 0.3 % (0-2); Eosinophils Absolute Auto 1.8 X10*3/uL (0.0-0.4); Eosinophils Percent Auto 6.7 % (0-4); Hematocrit 28.8 % (42-52); Hemoglobin 9.1 g/dl (14.0-18.0); Imm Gran Abs Auto 1.07 X10*3/uL (0.00-0.03); Lymphocytes Percent Auto 11.2 % (20-40); MANUAL DIFF FLAG SCAN; Mean Corpuscular HGB Conc 31.6 g/dl (31.0-36.0); Mean Corpuscular Hemoglobin 27.6 pg (27.0-33.0); Mean Corpuscular Volume 87.3 fL (80-98); Mean Platelet Volume 10.7 fL (9.4-12.4); Monocytes Absolute Auto 2.7 X10*3/uL (0.1-1.2); Monocytes Percent Auto 9.9 % (2-11); Neutrophils Absolute Auto 18.2 X10*3/uL (2.0-8.3); Neutrophils Percent Auto 67.9 % (45-73); Platelet Count 497 X10*3/uL (160-400); Red Cell Distribution Width 18.9 % (11.0-16.0); SCAN SMEAR FLAG 1; White Blood Count 26.8 X10*3/uL (4.8-10.8)
[2020-08-05 06:23] LABS: Base Excess VBG -3.6 mmol/L; HCO3 VBG 20 mmol/L; PCO2 VBG 32 mmhg; PO2 VBG 36 mmhg; pH VBG 7.42 (7.32-7.43)
[2020-08-05 06:24] LABS: Oxygen Saturation VBG 72.9 %
[2020-08-05 06:29] LABS: Anion Gap 14 (12-20); Blood Urea Nitrogen 40 mg/dL (9-16); Calcium 8.5 mg/dL (8.4-10.2); Carbon Dioxide 22 mmol/L (22-29); Chloride 109 mmol/L (96-108); Creatinine Clr Calc Pharmacy 98.8; Estimated Glomerular Filt Rate > 60; Glucose Random 144 mg/dL (60-115); Phosphorus 2.8 mg/dL (2.7-4.5); Potassium 3.7 mmol/l (3.3-5.1); Sodium 141 mmol/L (135-145)
[2020-08-05 06:37] LABS: Troponin-I High Sensitivity 58.6 ng/L (<3.5-35.0)
[2020-08-05 06:49] LABS: SLIDE REVIEW VERIFIED
[2020-08-05] MEDS: 0.9 % Sodium Chloride Flush 3 ML SYRINGE IVFLUSH ×3 (07:25→23:29)
[2020-08-05] MEDS: Chlorhexidine Gluc Oral Rinse 15 ML MOUTHWASH BUCCAL ×3 (07:26→23:29)
[2020-08-05] MEDS: Albuterol/Iprat 2.5/0.5MG 3 ML AMPUL.NEB INHALE ×3 (07:51→19:28)
--- NOTE | 2020-08-05 08:57 | MHC.SLORD ---
[address] [address] Speech & Hearing [phone] Name: Can Baltazar Date of : 1950 Age: 70 Date of Registration: 07/25/20 Pt still on vent support. Bedside swallow evaluation pending 24-48 hours post extubation. Speech Language Pathology Order Status:
[2020-08-05] MEDS: Metoprolol Tartrate 12.5 MG HALFTAB PO ×2 (09:45→21:39)
[2020-08-05] MEDS: Levothyroxine Sodium 100 MCG VIAL 50 MCG IVPUSH (09:45)
[2020-08-05] MEDS: Lactulose 20 GM/30 ML SOLUTION G-TUBE (10:17)
--- NOTE | 2020-08-05 11:16 | PM.PNCARD ---
Subjective Subjective Date of Service: 08/05/20 <ANEUDY Campa - Last Filed: 08/05/20 11:41> 08/05/20 <Giuseppe Redd MD - Last Filed: 08/05/20 15:55> Principal diagnosis: Respiratory failure, cardiomyopathy, VT <ANEUDY Campa - Last Filed: 08/05/20 11:41> Interval history: Cardiology follow up for Takotsubo CMP, NSVT. Remains intubated, sedated. Unable to obtain ROS. Tele shows SR, PVCs, brief VT runs, longest 6 beats in last 24 hr. CXR today does not show pulm edema. EF improved on echo yesterday. Prior EF 20-25%, now 45-50%, still with WMA. <ANEUDY Campa - Last Filed: 08/05/20 11:41> Physical Exam Vital Signs: Last Vital Signs Temp 100.6 F H 08/05/20 10:56 Pulse 86 08/05/20 10:56 Resp 34 H 08/05/20 10:56 BP 129/77 08/05/20 10:56 Pulse Ox 90 L 08/05/20 10:56 Body Mass Index 27.9 <ANEUDY Campa - Last Filed: 08/05/20 11:41> Const Other: Intubated, sedated, No acute distress noted. <ANEUDY Campa - Last Filed: 08/05/20 11:41> HENMT Other: No noted JVD, no carotid bruit <ANEUDY Campa - Last Filed: 08/05/20 11:41> Neck Neck: Yes normal visual inspection and Yes no JVD <ANEUDY Campa - Last Filed: 08/05/20 11:41> Resp Other: Breathing with ventilator, resp rate in 30s. Lung sounds clear anteriorly, diminished lower lobes posterior. <ANEUDY Campa - Last Filed: 08/05/20 11:41> Cardio Rate: regular rate (No obvious murmur noted) <ANEUDY Campa - Last Filed: 08/05/20 11:41> Rhythm: regular rhythm <ANEUDY Campa Last Filed: 08/05/20 11:41> Heart sounds: S1 normal heart sound present and S2 normal heart sound present <Mary SantosANEUDY - Last Filed: 08/05/20 11:41> Peripheral pulses: Peripheral pulses 2+ throughout <Mary SantosANEUDY - Last Filed: 08/05/20 11:41> GI Inspection: Yes normal to inspection <Mary SantosANEUDY - Last Filed: 08/05/20 11:41> Extrem Other: generalized anasarca <Mary SantosANEUDY - Last Filed: 08/05/20 11:41> Results Labs and Meds Result diagrams: : 08/05/20 05:29 08/05/20 05:29 <Mary SantosANEUDY - Last Filed: 08/05/20 11:41> Lab results: Laboratory Results - last 24 hr 08/01/20 08/04/20 08/05/20 05:46 11:15 05:29 WBC RBC Hgb Hct MCV MCH MCHC RDW Plt Count MPV Immature Gran % (Auto) Neut % (Auto) Lymph % (Auto) [place] % (Auto) Eos % (Auto) Baso % (Auto) Lymph # (Auto) [place] # (Auto) Eos # (Auto) Baso # (Auto) Abs Immat Gran (auto) Absolute Neuts (auto) Absolute Nucleated RBC Nucleated RBC % (auto) Smear Tech's Comments Smear Path Review SEE NOTE VBG pH 7.38 VBG pCO2 38 VBG pO2 37 VBG HCO3 22 VBG O2 Saturation 74.9 VBG Base Excess -3.0 Sodium Potassium Chloride Carbon Dioxide Anion Gap BUN Creatinine Estim Creat Clear Calc Estimated GFR Random Glucose Calcium Phosphorus Troponin I High Sens 58.6 H 08/05/20 08/05/20 08/05/20 05:29 05:29 05:29 WBC 26.8 H RBC 3.30 L Hgb 9.1 L Hct 28.8 L MCV 87.3 MCH 27.6 MCHC 31.6 RDW 18.9 H Plt Count 497 H MPV 10.7 Immature Gran % (Auto) 4.0 H Neut % (Auto) 67.9 Lymph % (Auto) 11.2 L [place] % (Auto) 9.9 Eos % (Auto) 6.7 H Baso % (Auto) 0.3 Lymph # (Auto) 3.0 [place] # (Auto) 2.7 H Eos # (Auto) 1.8 H Baso # (Auto) 0.1 Abs Immat Gran (auto) 1.07 H Absolute Neuts (auto) 18.2 H Absolute Nucleated RBC 0.000 Nucleated RBC % (auto) 0.0 Smear Tech's Comments VERIFIED Smear Path Review VBG pH 7.42 VBG pCO2 32 VBG pO2 36 VBG HCO3 20 VBG O2 Saturation 72.9 VBG Base Excess -3.6 Sodium 141 Potassium 3.7 Chloride 109 H Carbon Dioxide 22 Anion Gap 14 BUN 40 H Creatinine 0.85 Estim Creat Clear Calc 98.8 Estimated GFR > 60 Random Glucose 144 H Calcium 8.5 Phosphorus 2.8 Troponin I High Sens <DOMINGO CampaC - Last Filed: 08/05/20 11:41> Progress Note: A&P Assessment and plan (1) Cardiomyopathy: Status: Acute <ANEUDY Campa - Last Filed: 08/05/20 11:41> Assessment and Plan: Remains in ICU intubated, sedated with resp failure. Echo initially with EF 20-25%, WMA and Trop elevation consistent with Takotsubo CMP. Has been difficult to wean off vent. Repeat echo yesterday with EF 45-50%, still has WMA. CXR this am with opacity left base, smalll left effusion. No findings of pulm edema. On exam he has generalized anasarca. Fluid balance this admit documentated as +12liters. He is on low dose lasix. Previously we started low dose Metoprolol for neurohormonal modulation and to help with ventricular arrythmia. His EF has improved in last few days. He may still have CAD with recent ACS. He was treated accordingly with Heparin. At present No clear cardiac findings that are preventing him from ventilator weaning/ extubation. Will continue with Metoprolol. Recommend increasing dose as tolerated, from 12.5mg bid up to q 6hr due to ongoing PVCs, brief NSVT. Recommend low dose Dany/Arb to help with neurohormonal modulation. Cr 0.85. Lasix use per direction of [facility]. Eventual ischemic eval. We will follow <ANEUDY Campa - Last Filed: 08/05/20 11:41> (2) Ventricular tachycardia: Status: Acute <ANEUDY Campa - Last Filed: 08/05/20 11:41> Assessment and Plan: VT run few days ago. EF was down to 20-25% at that time. Initially put on Amiodarone and had prolonged QTc. Now on Metoprolol. Tele shows SR, PAC,s PVCs, brief NSVT, this am had 6 beat run. EF improving. Recommend increase Metoprolol as above <ANEUDY Campa - Last Filed: 08/05/20 11:41> ventricular tachycardia, sustained few days ago in the setting of what appears to be acute myocardial ischemia with severe LV systolic dysfunction. This has mostly subsided now. LV systolic function is improved but there is a persistent underlying regional wall motion abnormality in LAD territory. He does have increased burden of ventricular arrhythmias and some nonsustained 6 beat run. Increase metoprolol to 12.5 mg q.6 hours and maximize as tolerated. Add low-dose Dany inhibitors eventually it for afterload reduction. No overt signs of congestive heart failure at this time. Continue to manage ventilator as per the [facility] team. Case discussed with Dr. Kirby. patient seen and examined. Case discussed with Mary Santos. <Giuseppe Redd MD - Last Filed: 08/05/20 15:55> (3) Acute respiratory failure: Status: Acute <ANEUDY Campa - Last Filed: 08/05/20 11:41> Fall Risk Details Current Medications: Current Medications Generic Name Dose Route Start Last Admin Trade Name Freq PRN Reason Stop Dose Admin Albuterol/Ipratropium 3 ml 08/02/20 08:00 08/05/20 07:51 Albuterol/Iprat 2.5/0.5mg 3 Ml Ampul.Neb INHALE 3 ml RQ6H WHILE AWAKE SERINA Administration Chlorhexidine Gluconate 15 ml 07/30/20 23:00 08/05/20 07:26 Chlorhexidine Gluc Oral Rinse 15 Ml Mouthwash BUCCAL 15 ml Q8H SERINA Administration Enoxaparin Sodium 40 mg 08/02/20 18:00 08/04/20 18:23 Enoxaparin Sodium 40 Mg/0.4 Ml Syringe SUBCUT Not Given Q24H SERINA Furosemide 20 mg 08/02/20 13:30 08/05/20 02:01 Furosemide 20 Mg/2 Ml Vial IVPUSH 20 mg Q12H SERINA Administration Protocol Hydromorphone HCl 2 mg 08/04/20 14:33 08/05/20 10:30 Hydromorphone Hcl 2 Mg/Ml Vial IVPUSH 2 mg Q2H PRN Administration WOB Propofol 1,000 mg in 100 mls @ 0 mls/hr 07/30/20 22:45 08/05/20 10:53 Diprivan IVCONT Infused .Q0M SERINA Titration Protocol Per Protocol Fentanyl 1,000 mcg in 100 mls @ 0 mls/hr 08/05/20 02:00 08/05/20 09:01 Sublimaze/Ns IVCONT 150 mcg/hr .Q0M SERINA 15 mls/hr Titration Protocol Per Protocol Lactulose 20 gm 08/05/20 10:01 08/05/20 10:17 Lactulose 20 Gm/30 Ml Solution G-TUBE 20 gm BID PRN Administration Constipation Levothyroxine Sodium 50 mcg 07/26/20 09:00 08/05/20 09:45 Levothyroxine Sodium 100 Mcg Vial IVPUSH 50 mcg DAILY SERINA Administration Lidocaine HCl 50 mg 07/30/20 19:37 Lidocaine Hcl/Pf 100 Mg/5 Ml Syringe IV Q15M PRN Heart Rate > 300 Metoprolol Tartrate 12.5 mg 08/05/20 09:00 08/05/20 09:45 Metoprolol Tartrate 12.5 Mg Halftab PO 12.5 mg BID SERINA Administration Protocol Naloxone HCl 0.2 mg 08/05/20 01:46 Naloxone Hcl 0.4 Mg/Ml Vial IVPUSH Q2M PRN Excessive sedation or RR < 8 Sodium Chloride 3 ml 07/25/20 16:00 08/05/20 07:25 0.9 % Sodium Chloride Flush 3 Ml Syringe IVFLUSH 3 ml QSHIFT SERINA Administration <ANEUDY Campa - Last Filed: 08/05/20 11:41> Time Spent With Patient Time: Total time spent is greater than 50% in coordination of care (as documented) at patient's floor/unit and/or counseling patient: <ANEUDY Campa - Last Filed: 08/05/20 11:41> Time with patient: 15 - 24 minutes <ANEUDY Campa - Last Filed: 08/05/20 11:41>
[2020-08-05] MEDS: fentaNYL citrate/NS 1,000 MCG/100 ML PLAST..BAG 15 MCG IVCONT ×2 (11:53→18:17)
[2020-08-05 15:47] LABS: HCO3 VBG 23 mmol/L; Oxygen Saturation VBG 78.9 %; PCO2 VBG 37 mmhg; PO2 VBG 41 mmhg; pH VBG 7.41 (7.32-7.43)
[2020-08-05] MEDS: LORazepam 2 MG/ML VIAL 1 MG IVPUSH (16:14)
[2020-08-05] MEDS: Enoxaparin Sodium 40 MG/0.4 ML SYRINGE SUBCUT (16:50)
--- NOTE | 2020-08-05 18:11 | P.PNCC_ITS ---
Subjective Subjective Date of Service: 08/05/20 Interval History: Mr. Baltazar was admitted to ICU on July 25 with acute respiratory failure. The patient is a 70 yo male with h/o non-Hodgkin's lymphoma and CLL, being treated by Dr. Land at [facility] with imbruvica for a couple of years. 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 Was recently hospitalized at [facility] for cellulitis, Jun 27-Jul 09, and discharged from there for STR to [facility]. 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 The patient was sent to the ED on Jul 25 bec of confusion and change in mental status. Last seen by nurse practitioner on 07/21, and at that time reportedly the patient was healthy appearing, well nourished and well developed, without any significant change in mental status. In the ED was altered and became markedly delirious and agitated, requiring urgent intubation for airway protection. Underwent CT and diagnostic LP, both negative. Altered mental status thought possibly secondary to unintentional opioid overdose. Was initially empirically treated with vancomycin, Zosyn, and acyclovir, and admitted to ICU. Antibiotics subsequently changed to doxycycline for Gram-positive cocci in sputum and a left lower lobe infiltrate. Was extubated on July 28. At that time was reportedly confused but redirectable, and able to carry out limited conversation. During the period following extubation, was tachypneic with central venous pCO2?s in the 20?s. That night, the patient had multiple episodes of ventricular tachycardia. The following morning, an echo showed marked cardiomyopathy, w normal LV cavity size, moderately increased wall thickness, and severely decreased systolic function, EF 20-25%, with notable RWMAs. Overall suggestive of Takotsubo cardiomyopathy. Right atrial pressure was elevated with moderate pulmonary hypertension. Troponin bumped to 1500. The patient was given beta augustina, aspirin, and heparin drip x 48 hrs. Later that day, the patient developed respiratory distress refractory to noninvasive ventilation and required emergent intubation for hypoxemia and worsening mental status. Developed nonoliguric PATY presumed 2? poor forward goldy w. On Aug 02 & , attempts at weaning with PSV were assoc with flipped T waves, but no new enzyme bumps. Yesterday was unresponsive, even with sedation cut in half. RR low 30?s all day, with central venous pCO2 in the 30s. This morning, we turned his propofol off, and his fentanyl down to 150ug. He?s remained completely unresponsive all day today, with no spontaneous movement at all, other than his spont respirations. No response to painful stimuli. No posturing. We gave him Ativan 1 mg IV push in case this was a catatonic reaction; there was no change in his status. See Vital Signs below. Had been afebrile since admission, started having low grade temps today. HR 107, BP 133/76, RR 40, ETCO2 28, Sat 92% on vent settings AC 18/450/21%/+5, with Ve 18-20 L, PIP 19. Central venous blood gas this afternoon, with RR up to 44, showed 7.41/37/-1. Pupils yesterday were miotic, today about 6mm. No JVD at 30?. Chest is clear to auscultation with low-pitched breath sounds. Regular rate and rhythm, with normal-sounding S1 and S2, with no murmur or gallops. The abdomen is benign. He has 1+central edema. Chronic lymphedema of the left lower leg. We took the bandage off. There is lymphedema but no cellulitis. There?s no erythema, the lower leg is just warm. LABORATORY DATA: As below. Notably, white count has been elevated and pretty much stable in the 17-26 range since admission, presumably 2? his CLL (the [facility] discharge summary commented on the same thing). BUN and creatinine steady. Trop continues to decline. MICRO: Sputum GS from yest shows 4+ polys, 4+ GPC pairs & chains, 2+ GNR. CURRENT MEDICATIONS INCLUDE: Lovenox 40 mg daily Lasix 20 mg IV bid. Thyroid daily Metoprolol 12.5 mg bid (No Abx) ECHOCARDIOGRAM report from yesterday: LV systolic function is significantly improved from the prior study, with EF estimated by Dr. Redd to be 45-50%. (I thought it was more on the order of 35% when I view this study.) LV size is normal. Dr. Redd noted regional wall motion abnormalities in the LAD territory. IMPRESSION: 1. Altered mental status. Etiology still undetermined. I have scheduled him for an MRI tomorrow morning. 2. Bilat pulmon infiltrates. ? 2? to aspiration. His near normal AA gradient suggests that these infiltrates are not pneumonia. Sputum Gram stain shows a mixed geoff. No antibiotics indicated at this time. 3. Acute resp failure. Compliance and A-a gradient are near normal, suggesting no real need for mech ventilation. And his high Ve seems centrally driven, given his very low pCO2. It is my feeling that if his mental status were normal, his ventilatory and respiratory status would be normal. 4. CMOP. LV function is improved on yesterday's echo. No further episodes of ventricular tachycardia. The cause of his cardiomyopathy remains unclear. Likely needs a left heart cath. We?ll increase his metoprolol to 12.5 mg q6hr. 5. Acute kidney injury. Unclear what his baseline renal indices are. Regardless, his current numbers are improving with diuresis. Continue with the Lasix, as above. 6. ID: No evidence of bacteremia (early coagulase negative Staph blood culture is a contaminant), or other infection. Cause of leukocytosis is probably the CLL. 7. H/o non-Hodgkin's lymphoma and CLL. I will try to call Dr. Land tomorrow. Spoke with his by phone today and discussed his condition and management plan. Critical care time (including multiple visits to the bedside, further d/w Dr. Breen and Dr. Redd, exam at the bedside with Dr. Breen): 70 min. Physical Exam Vital Signs: Vital Signs: Last Vital Signs Temp 100.4 F 08/05/20 18:00 Pulse 118 H 08/05/20 18:00 Resp 44 H 08/05/20 18:00 BP 133/76 08/05/20 18:00 Pulse Ox 92 08/05/20 18:00 Body Mass Index 27.9 Objective Data Labs CBC & Chem 7: 08/05/20 05:29 08/05/20 05:29 Labs: Laboratory Results - last 24 hr 08/05/20 08/05/20 08/05/20 05:29 05:29 05:29 WBC 26.8 H RBC 3.30 L Hgb 9.1 L Hct 28.8 L MCV 87.3 MCH 27.6 MCHC 31.6 RDW 18.9 H Plt Count 497 H MPV 10.7 Immature Gran % (Auto) 4.0 H Neut % (Auto) 67.9 Lymph % (Auto) 11.2 L [place] % (Auto) 9.9 Eos % (Auto) 6.7 H Baso % (Auto) 0.3 Lymph # (Auto) 3.0 [place] # (Auto) 2.7 H Eos # (Auto) 1.8 H Baso # (Auto) 0.1 Abs Immat Gran (auto) 1.07 H Absolute Neuts (auto) 18.2 H Absolute Nucleated RBC 0.000 Nucleated RBC % (auto) 0.0 Smear Tech's Comments VERIFIED VBG pH VBG pCO2 VBG pO2 VBG HCO3 VBG O2 Saturation VBG Base Excess Sodium 141 Potassium 3.7 Chloride 109 H Carbon Dioxide 22 Anion Gap 14 BUN 40 H Creatinine 0.85 Estim Creat Clear Calc 98.8 Estimated GFR > 60 Random Glucose 144 H Calcium 8.5 Phosphorus 2.8 Troponin I High Sens 58.6 H 08/05/20 08/05/20 05:29 15:30 WBC RBC Hgb Hct MCV MCH MCHC RDW Plt Count MPV Immature Gran % (Auto) Neut % (Auto) Lymph % (Auto) [place] % (Auto) Eos % (Auto) Baso % (Auto) Lymph # (Auto) [place] # (Auto) Eos # (Auto) Baso # (Auto) Abs Immat Gran (auto) Absolute Neuts (auto) Absolute Nucleated RBC Nucleated RBC % (auto) Smear Tech's Comments VBG pH 7.42 7.41 VBG pCO2 32 37 VBG pO2 36 41 VBG HCO3 20 23 VBG O2 Saturation 72.9 78.9 VBG Base Excess -3.6 -1.0 Sodium Potassium Chloride Carbon Dioxide Anion Gap BUN Creatinine Estim Creat Clear Calc Estimated GFR Random Glucose Calcium Phosphorus Troponin I High Sens Microbiology Microbiology Results: Microbiology 08/04/20 22:54 Sputum - Suctioned Gram Stain - Final 07/25/20 10:28 Blood - Venous Blood Culture - Final Coagulase-neg Staphyloccocus 07/25/20 10:59 Blood - Venous Blood Culture - Final No growth after 5 days. 07/25/20 15:07 Cerebrospinal Fluid Gram Stain - Final 07/25/20 15:07 Cerebrospinal Fluid CSF Examination - Final 07/25/20 15:07 Cerebrospinal Fluid Gross Specimen Examination - Final 07/25/20 15:07 Cerebrospinal Fluid CSF Culture - Final No growth after 3 days. 07/25/20 17:48 Urine Catheterized - Hill Catheter Urine Culture - Final No growth. 07/25/20 17:48 Sputum - Suctioned Gram Stain - Final 07/25/20 17:48 Sputum - Suctioned Sputum Culture - Final Progress Note: A&P Time Spent With Patient Time: Total time spent is greater than 50% in coordination of care (as d ocumented) at patient's floor/unit and/or counseling patient: Total time spent with greater than 50% in coordination of care (as documented) at patient's floor/unit and/or counseling patient:: 0 Critical Care Time Critical Care Time (minutes): 60
--- NOTE | 2020-08-05 18:40 | PC.NURSE ---
PROPOFOL SEDATION TURNED OFF AT 0900. PT REMAINED UNRESPONSIVE THROUGHOUT SHIFT. MD AWARE. MRI ORDERED FOR TOMORROW, THIS RN CALLED PTS TO DO INTAKE AND SCREENING FORM. FORM THEN FAXED TO MRI BY THIS RN. TMAX 100.8. ST W/ PVCS ON TELE. SBP WNL. VENT SETTINGS AC 18 TV 450 PEEP 5 FI02 21%. RR OCCASIONALLY INCREASES TO 40S, PRN DILAUDID ADMINISTERED X 2 FOR WOB PER MD. LS DIMINISHED IN BASES. MILD JVD NOTED, MD NOTIFIED. EDEMA R>L HAND, L>R LEG. SCROTAL EDEMA NOTED. MCQUEEN OUTPUT WNL. PRN LACTULOSE ADMINISTERED WITH MINIMAL EFFECT. Q2H REPO, BATHED, TLC DRESSING CHANGED. PER MD PINK FOAM TO LEFT INNER CALF ONLY, LEG OPEN TO AIR. NO WRAP NEEDED. PTS UPDATED BY THIS RN AND MD.
[2020-08-06] VITALS (38 sets, daily range): BP systolic 102–146; BP diastolic 57–86; PULSE 80–160; RESP 26–42; TEMP 36.8–37.9; O2SAT 89–100; BMI 27.6
[2020-08-06] MEDS: Furosemide 20 MG/2 ML VIAL IVPUSH ×2 (00:45→13:29)
[2020-08-06] MEDS: fentaNYL citrate/NS 1,000 MCG/100 ML PLAST..BAG 15 MCG IVCONT ×2 (00:47→06:22)
[2020-08-06] MEDS: HYDROmorphone HCl 2 MG/ML VIAL IVPUSH ×4 (01:37→23:36)
[2020-08-06] MEDS: Metoprolol Tartrate 5 MG/5 ML VIAL IVPUSH (04:09)
[2020-08-06 05:47] LABS: Basophils Absolute Auto 0.1 X10*3/uL (0.0-0.2); Basophils Percent Auto 0.3 % (0-2); Eosinophils Percent Auto 3.1 % (0-4); Hematocrit 30.4 % (42-52); Hemoglobin 9.6 g/dl (14.0-18.0); Imm Gran Abs Auto 0.63 X10*3/uL (0.00-0.03); Imm Gran Pct Auto 1.9 % (0.0-0.4); Lymphocytes Absolute Auto 2.4 X10*3/uL (1.2-4.9); Lymphocytes Percent Auto 7.3 % (20-40); MANUAL DIFF FLAG SCAN; Mean Corpuscular HGB Conc 31.6 g/dl (31.0-36.0); Mean Corpuscular Hemoglobin 27.4 pg (27.0-33.0); Mean Corpuscular Volume 86.9 fL (80-98); Mean Platelet Volume 10.1 fL (9.4-12.4); Monocytes Absolute Auto 3.2 X10*3/uL (0.1-1.2); Monocytes Percent Auto 9.5 % (2-11); Neutrophils Absolute Auto 25.8 X10*3/uL (2.0-8.3); Neutrophils Percent Auto 77.9 % (45-73); Platelet Count 547 X10*3/uL (160-400); Red Cell Distribution Width 18.4 % (11.0-16.0); SCAN SMEAR FLAG 1
[2020-08-06 05:52] LABS: Base Excess VBG -2.5 mmol/L; HCO3 VBG 22 mmol/L; Oxygen Saturation VBG 68.9 %; PCO2 VBG 36 mmhg; PO2 VBG 34 mmhg
[2020-08-06 06:07] LABS: Anion Gap 14 (12-20); Blood Urea Nitrogen 40 mg/dL (9-16); Calcium 8.3 mg/dL (8.4-10.2); Carbon Dioxide 22 mmol/L (22-29); Chloride 107 mmol/L (96-108); Creatinine Clr Calc Pharmacy 99.5; Estimated Glomerular Filt Rate > 60; Glucose Random 156 mg/dL (60-115); Potassium 3.9 mmol/l (3.3-5.1); Sodium 139 mmol/L (135-145)
[2020-08-06] MEDS: Chlorhexidine Gluc Oral Rinse 15 ML MOUTHWASH BUCCAL ×2 (06:24→13:29)
[2020-08-06 06:47] LABS: White Blood Count 33.1 X10*3/uL (4.8-10.8)
[2020-08-06] MEDS: 0.9 % Sodium Chloride Flush 3 ML SYRINGE IVFLUSH ×2 (07:45→15:27)
[2020-08-06 08:13] LABS: SLIDE REVIEW VERIFIED
--- NOTE | 2020-08-06 08:28 | PC.NURSE ---
Addendum entered by Doretha Obrien RN 08/06/20 18:17: Brain MRI ordered - 60mg Rocuronium IVP and Propofol gtt ordered and administered prior to imaging - Propofol gtt titrated off post MRI Patient has no purposeful movement, no pain response, absent gag, weak cough, pupils equal & sluggish, flaccid - MD aware RR 30-40's - Dilaudid 2mg IVP administered with no effect - Fentanyl gtt titrated WBC up to 33.1 - MD aware - no new orders TLC in since 07/25 - MD notified during rounds Family updated by MD regarding MRI results- plan for terminal extubation tomorrow 08/07 per family Original Note: HR 160-170'S on monitor, BP 119/71 - MD notified and at bedside - Adenosine 6mg IVP VO Stemp administered at 0823 - Paatient SR HR 90'S frequent PVCs - MD aware Propofol gtt restarted at 0823 at 20mcg/kg/min - BP 128/68
[2020-08-06] MEDS: Adenosine 6 MG/2 ML VIAL IVPUSH (08:30)
[2020-08-06] MEDS: propofoL 1,000 MG/100 ML VIAL 11.94 MG IVCONT (08:32)
[2020-08-06] MEDS: Albuterol/Iprat 2.5/0.5MG 3 ML AMPUL.NEB INHALE ×2 (08:47→13:34)
--- NOTE | 2020-08-06 09:03 | MHC.SLORD ---
[address] [address] Speech & Hearing [phone] Name: Can Baltazar Date of : 1950 Age: 70 Date of Registration: 07/25/20 Pt continues to require ventilatory support. Bedside dysphagia evaluation not appropriate until 24-48 hours post extubation to reduce the risk of silent aspiration. Speech Language Pathology Order Status:
[2020-08-06] MEDS: Metoprolol Tartrate 12.5 MG HALFTAB PO ×2 (09:18→20:49)
[2020-08-06] MEDS: Levothyroxine Sodium 100 MCG VIAL 50 MCG IVPUSH (09:18)
[2020-08-06] MEDS: fentaNYL citrate/NS 1,000 MCG/100 ML PLAST..BAG 30 MCG IVCONT ×5 (09:59→23:37)
[2020-08-06] MEDS: Rocuronium Bromide 50 MG/5 ML VIAL 60 MG IVPUSH (10:30)
--- NOTE | 2020-08-06 10:44 | MR_ITS ---
EXAMINATION: MR BRAIN WITHOUT AND WITH CONTRAST CLINICAL INFORMATION: Rule out stroke. COMPARISON: CT head 07/25/2020. TECHNIQUE: Multiplanar, multisequence MRI of the brain was obtained before and after the intravenous administration of 6 mL Gadavist. FINDINGS: There is a new large intraparenchymal hemorrhage within the left temporal lobe measuring up to 7 cm AP by 4 cm TV by 4.1 cm CC in size surrounded by edema. Accounting for subacute methemoglobin within the hematoma, no definite discrete enhancing nodules mass lesion is identified though follow-up is warranted to exclude any underlying pathologic lesion. There is restricted diffusion along the periphery of the infarct suggesting hemorrhagic conversion of a left MCA territory infarct. Additional smaller acute infarcts within the left ventral thalamus, left basal ganglia, splenium of the corpus callosum, and remaining periphery of the infarct. The intraparenchymal hemorrhage exhibiting intraventricular hemorrhagic extension layering dependently within the lateral ventricles. There is significant mass effect including 1 cm rightward midline shift/subfalcine herniation as well as left-sided uncal herniation with mass effect on the left cerebral peduncle. There is lack of FLAIR CSF suppression throughout multiple left cerebral sulci which may reflect a component of subarachnoid hemorrhage. There is a subacute left hemispheric subdural hematoma. MR/MR head/brain wo/w con IMPRESSION: - There is a new large up to 7 cm intraparenchymal hemorrhage within the left temporal lobe surrounded by edema, suspected to reflect hemorrhagic transformation of a left MCA territory infarct given the presence of restricted diffusion along the periphery of the hematoma. Additional smaller acute infarcts involving the left ventral thalamus, left basal ganglia, splenium of the corpus callosum, and along the remaining periphery of the intraparenchymal hemorrhage. Accounting for subacute methemoglobin within the hematoma, no definite discrete enhancing nodules mass lesion is identified though follow-up is warranted to exclude any underlying pathologic lesion. - There is significant mass effect including 1 cm rightward midline shift/subfalcine herniation as well as left-sided uncal herniation with mass effect on the left cerebral peduncle. - There is intraventricular hemorrhagic extension without hydrocephalus. There is a subacute left hemispheric subdural hematoma. There is lack of FLAIR CSF suppression throughout multiple left cerebral sulci which may reflect a component of subarachnoid hemorrhage. Critical findings were discussed with Dr. Kirby at 11:40 AM on 08/06/2020.
--- NOTE | 2020-08-06 11:02 | MHC.CM.PN ---
Patient remains intubated/vented in ICU. Patient scheduled for Brain MRI at 10am. Patient was at [facility] for STR prior to coming to hospital. Continue to monitor for d/c needs.
--- NOTE | 2020-08-06 11:25 | MHC.CLN ---
F/U RECOMMEND INCREASING TF JEVITY AT MAX GOAL RATE 85CC/HR WITH 240CC FREE WATER FLUSHES Q SHIFT TO PROVIDE 2162KCALS (2477KCALS WITH SEDATION; 25KCALS/KG), 90G PROTEIN (.9G/KG), 2423CC TOTAL WATER FROM FORMULA AND FLUSHES (25CC/KG) MONITOR TOLERANCE, RESIDUALS AND LYTES
--- NOTE | 2020-08-06 11:39 | PC.RT ---
pt. tansported to and from MRI without incident. Tolerated the portable MRI vent well on rr 20 vt 500 and fi02 505 5 PEEP. Pt. was sedated during procedure and no resp distress noted . pt remained hemodynamically stable throughout the MRI.
[2020-08-06] MEDS: Potassium Chloride Packet 20 MEQ PACKET 40 MEQ PO ×2 (12:04→15:27)
--- NOTE | 2020-08-06 13:45 | P.PNCC_ITS ---
Subjective Subjective Date of Service: 08/06/20 Interval History: Mr. Baltazar was admitted to ICU on July 25 with acute respiratory failure. The patient is a 70 yo male with h/o non-Hodgkin's lymphoma and CLL, being treated by Dr. Land at [facility] with imbruvica for a couple of years. 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 Was recently hospitalized at [facility] for cellulitis, Jun 27-Jul 09, and discharged from there for STR to [facility]. 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 The patient was sent to the ED on Jul 25 bec of confusion and change in mental status. Last seen by nurse practitioner on 07/21, and at that time reportedly the patient was healthy appearing, well nourished and well developed, without any significant change in mental status. In the ED was altered and became markedly delirious and agitated, requiring urgent intubation for airway protection. Underwent CT and diagnostic LP, both negative. Altered mental status thought possibly secondary to unintentional opioid overdose. Was initially empirically treated with vancomycin, Zosyn, and acyclovir, and admitted to ICU. Antibiotics subsequently changed to doxycycline for Gram-positive cocci in sputum and a left lower lobe infiltrate. Was extubated on July 28. At that time was reportedly confused but redirectable, and able to carry out limited conversation. During the period following extubation, was tachypneic with central venous pCO2?s in the 20?s. That night, the patient had multiple episodes of ventricular tachycardia. The following morning, an echo showed marked cardiomyopathy, w normal LV cavity size, moderately increased wall thickness, and severely decreased systolic function, EF 20-25%, with notable RWMAs. Overall suggestive of Takotsubo cardiomyopathy. Right atrial pressure was elevated with moderate pulmonary hypertension. Troponin bumped to 1500. The patient was given beta augustina, aspirin, and heparin drip x 48 hrs. Later that day, the patient developed respiratory distress refractory to noninvasive ventilation and required emergent intubation for hypoxemia and worsening mental status. Developed nonoliguric PATY presumed 2? poor forward goldy w. On Aug 02 & , attempts at weaning with PSV were assoc with flipped T waves, but no new enzyme bumps. Has been unresponsive since I took over his care on Aug 04. We completely stopped all his propofol yesterday morning, and he remained completely unresponsive all day. This morning, he?s breathing spont but no response to painful stimulation, no corneals. Positive dolls? eyes, and has a cough to deep sxn. PERRL, sluggish, about 4mm. See Vital Signs below. Low grade temps yest and overnite. HR 100, BP 110/63. RR 38 despite fentanyl gtt, with Ve 19L. Sat low 90?s on 21%+5. CVBG this morn showed 7.40/36/-2. No JVD. Chest CTA. Regular rate and rhythm, with normal-sounding S1 and S2, with no murmur or gallops. The abdomen is benign. He has 1+central edema. Chronic lymphedema of the left lower leg. No cellulitis. LABORATORY DATA: As below. Notably, WBC up to 33. BUN and creatinine steady. MICRO: Sputum GS from 08/04 shows 4+ polys, 4+ GPC pairs & chains, 2+ GNR. Cx negative so far. CURRENT MEDICATIONS INCLUDE: Lovenox 40 mg daily Lasix 20 mg IV bid. Thyroid daily Metoprolol 12.5 mg bid (No Abx) ECHOCARDIOGRAM report from 08/04: LV systolic function is significantly improved from the prior study, with EF estimated by Dr. Redd to be 45-50%. (I thought it was more on the order of 35% when I view this study.) LV size is normal. Dr. Redd noted regional wall motion abnormalities in the LAD territory. IMPRESSION: 1. Altered mental status. Etiology still undetermined. Scheduled for MRI this morning. 2. Bilat pulmon infiltrates. ? 2? to aspiration. His near normal AA gradient suggests that these infiltrates are not currently pneumonia. Sputum Gram stain shows a mixed geoff. No antibiotics indicated at this time. 3. Acute resp failure. Compliance and A-a gradient are near normal, suggesting no real need for mech ventilation. And his high Ve seems centrally driven, given his very low pCO2. It is my feeling that if his mental status were normal, his ventilatory and respiratory status would be normal. 4. CMOP. LV function is improved on Aug 04 echo. No further episodes of ventricular tachycardia. The cause of his cardiomyopathy remains unclear. Likely needs a left heart cath. Metoprolol is at 12.5 mg q6hr. 5. Acute kidney injury. Unclear what his baseline renal indices are. Regardless, his current numbers are improving with diuresis. Continue with the Lasix, as above. 6. ID: No evidence of bacteremia (early coagulase negative Staph blood culture is a contaminant), or other infection. Cause of leukocytosis in the 20?s is probably the CLL, but the bump today is more concerning. CVL looks OK, no change in A-a gradient. Hold for now. 7. H/o non-Hodgkin's lymphoma and CLL. I will try to call Dr. Land today. 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 There is significant mass effect including 1 cm rightward midline shift/subfalcine herniation as well as left- sided uncal herniation with mass effect on the left cerebral peduncle. I discussed at length w Dr. Nava in the Dept of Radiology. Subsequently d/w Dr. Em of neurosurgery at [facility]. I sent him the pictures. He said that there?s nothing that can be done to reverse the patient?s situation. D/w Dr. Breen. Hemorrhage could have happened from the heparin he got last week. Or could simply be hemorrhagic transformation of an infarct (and maybe the latter was the original cause of his altered mental status). Spoke to his and daughter. They came in and I spoke with them in my office and at the bedside. I indicated that unfortunately this is fatal and there?s nothing to do to fix the problem. Indicated that extubation to comfort measures was the only real choice. They thought about it for a while then left. Will decide tomorrow. In the meantime, I will write DNR orders. Critical care time: 2+ hrs. Physical Exam Vital Signs: Vital Signs: Last Vital Signs Temp 98.2 F 08/06/20 13:00 Pulse 97 08/06/20 13:36 Resp 38 H 08/06/20 13:00 BP 114/63 08/06/20 13:00 Pulse Ox 93 08/06/20 13:00 Body Mass Index 27.6 Objective Data Labs CBC & Chem 7: 08/06/20 05:29 08/06/20 05:29 Labs: Laboratory Results - last 24 hr 08/05/20 08/06/20 08/06/20 15:30 05:29 05:29 WBC 33.1 H* RBC 3.50 L Hgb 9.6 L Hct 30.4 L MCV 86.9 MCH 27.4 MCHC 31.6 RDW 18.4 H Plt Count 547 H MPV 10.1 Immature Gran % (Auto) 1.9 H Neut % (Auto) 77.9 H Lymph % (Auto) 7.3 L [place] % (Auto) 9.5 Eos % (Auto) 3.1 Baso % (Auto) 0.3 Lymph # (Auto) 2.4 [place] # (Auto) 3.2 H Eos # (Auto) 1.0 H Baso # (Auto) 0.1 Abs Immat Gran (auto) 0.63 H Absolute Neuts (auto) 25.8 H Absolute Nucleated RBC 0.000 Nucleated RBC % (auto) 0.0 Smear Tech's Comments VERIFIED VBG pH 7.41 VBG pCO2 37 VBG pO2 41 VBG HCO3 23 VBG O2 Saturation 78.9 VBG Base Excess -1.0 Sodium 139 Potassium 3.9 Chloride 107 Carbon Dioxide 22 Anion Gap 14 BUN 40 H Creatinine 0.78 Estim Creat Clear Calc 99.5 Estimated GFR > 60 Random Glucose 156 H Calcium 8.3 L 08/06/20 05:29 WBC RBC Hgb Hct MCV MCH MCHC RDW Plt Count MPV Immature Gran % (Auto) Neut % (Auto) Lymph % (Auto) [place] % (Auto) Eos % (Auto) Baso % (Auto) Lymph # (Auto) [place] # (Auto) Eos # (Auto) Baso # (Auto) Abs Immat Gran (auto) Absolute Neuts (auto) Absolute Nucleated RBC Nucleated RBC % (auto) Smear Tech's Comments VBG pH 7.40 VBG pCO2 36 VBG pO2 34 VBG HCO3 22 VBG O2 Saturation 68.9 VBG Base Excess -2.5 Sodium Potassium Chloride Carbon Dioxide Anion Gap BUN Creatinine Estim Creat Clear Calc Estimated GFR Random Glucose Calcium Microbiology Microbiology Results: Microbiology 08/04/20 22:54 Sputum - Suctioned Gram Stain - Final 08/04/20 22:54 Sputum - Suctioned Sputum Culture - Preliminary Normal so far. 07/25/20 10:28 Blood - Venous Blood Culture - Final Coagulase-neg Staphyloccocus 07/25/20 10:59 Blood - Venous Blood Culture - Final No growth after 5 days. 07/25/20 15:07 Cerebrospinal Fluid Gram Stain - Final 07/25/20 15:07 Cerebrospinal Fluid CSF Examination - Final 07/25/20 15:07 Cerebrospinal Fluid Gross Specimen Examination - Final 07/25/20 15:07 Cerebrospinal Fluid CSF Culture - Final No growth after 3 days. 07/25/20 17:48 Urine Catheterized - Hill Catheter Urine Culture - Final No growth. 07/25/20 17:48 Sputum - Suctioned Gram Stain - Final 07/25/20 17:48 Sputum - Suctioned Sputum Culture - Final Progress Note: A&P Time Spent With Patient Time: Total time spent is greater than 50% in coordination of care (as documented) at patient's floor/unit and/or counseling patient: Total time spent with greater than 50% in coordination of care (as documented) at patient's floor/unit and/or counseling patient:: 0 Critical Care Time Critical Care Time (minutes): 120
[2020-08-06] MEDS: Enoxaparin Sodium 40 MG/0.4 ML SYRINGE SUBCUT (16:44)
[2020-08-07] VITALS (21 sets, daily range): BP systolic 97–131; BP diastolic 46–75; PULSE 80–107; RESP 16–38; TEMP 37.1–37.3; O2SAT 89–100
--- NOTE | 2020-08-07 02:35 | PC.NURSE ---
p. ineffective breathing pattern- i. assessement-unresponsive/repositioning evokes partial opening of right eye. no tracking or focusing. extremities flaccid. cough and gag reflexes absent. pt experiencing obvious increased work of breathing. sao2 have decreased into the mid 80s. breath sounds diminished with scattered rhonchi. gastric residual>200 i. fio2 increased to 50% i. dilaudid 2 mg ivp X2 for increased wob i. tube feedings on hold i. reposition side to side q 2hr- i. lovenox d/c e. unresponsive/essentially areflexic. deep tissue wounds to right buttock. with increase in fio2 to 50% sao2 has risen into the low 90s. abdominal retractions have resolved . breath sounds diminished with scattered rhonchi. ecg displays sr-st with ocassional pvcs. abdomen distended/firm. u/0 50-100 ml/hr
[2020-08-07] MEDS: 0.9 % Sodium Chloride Flush 3 ML SYRINGE IVFLUSH ×3 (03:20→15:49)
[2020-08-07] MEDS: HYDROmorphone HCl 2 MG/ML VIAL IVPUSH ×8 (04:50→22:25)
[2020-08-07] MEDS: fentaNYL citrate/NS 1,000 MCG/100 ML PLAST..BAG 30 MCG IVCONT (06:37)
[2020-08-07 06:39] LABS: HCO3 VBG 24 mmol/L; Oxygen Saturation VBG 69.8 %; PCO2 VBG 45 mmhg; PO2 VBG 37 mmhg; pH VBG 7.34 (7.32-7.43)
[2020-08-07 06:49] LABS: Anion Gap 13 (12-20); Blood Urea Nitrogen 44 mg/dL (9-16); Calcium 8.2 mg/dL (8.4-10.2); Carbon Dioxide 24 mmol/L (22-29); Chloride 108 mmol/L (96-108); Creatinine Clr Calc Pharmacy 103.5; Estimated Glomerular Filt Rate > 60; Glucose Random 115 mg/dL (60-115); Potassium 4.5 mmol/l (3.3-5.1); Sodium 140 mmol/L (135-145)
[2020-08-07 06:51] LABS: Basophils Absolute Auto 0.1 X10*3/uL (0.0-0.2); Basophils Percent Auto 0.3 % (0-2); Eosinophils Absolute Auto 0.7 X10*3/uL (0.0-0.4); Eosinophils Percent Auto 2.4 % (0-4); Hemoglobin 8.8 g/dl (14.0-18.0); Imm Gran Abs Auto 0.42 X10*3/uL (0.00-0.03); Imm Gran Pct Auto 1.5 % (0.0-0.4); Lymphocytes Absolute Auto 2.1 X10*3/uL (1.2-4.9); Lymphocytes Percent Auto 7.4 % (20-40); MANUAL DIFF FLAG SCAN; Mean Corpuscular HGB Conc 31.4 g/dl (31.0-36.0); Mean Corpuscular Hemoglobin 27.7 pg (27.0-33.0); Mean Corpuscular Volume 88.1 fL (80-98); Monocytes Absolute Auto 3.1 X10*3/uL (0.1-1.2); Monocytes Percent Auto 11.2 % (2-11); Neutrophils Absolute Auto 21.4 X10*3/uL (2.0-8.3); Neutrophils Percent Auto 77.2 % (45-73); Platelet Count 545 X10*3/uL (160-400); Red Blood Count 3.18 X10*6/uL (4.60-5.80); Red Cell Distribution Width 18.2 % (11.0-16.0); SCAN SMEAR FLAG 1; White Blood Count 27.8 X10*3/uL (4.8-10.8)
--- NOTE | 2020-08-07 09:23 | PC.NURSE ---
Addendum entered by Alice Thomas RN 08/08/20 02:09: This RN at bedside. Patient HR and RR noted to be suddenly dropping. PA to bedside. Patient passed at 0135 this am. , Micki, called and notified. States [facility] requested. Organ bank called and declined patient. Geology Technician Leslye Murphy. Ref # - [id number]. Gas Attendant called per Nursing Senior Buyer, states case in not reportable, declined as well. Post Mortem care preformed. Addendum entered by Doretha Obrien RN 08/07/20 13:06: VO Dr Kirby - Atropine 0.3mg IVP for increased secreation burden Addendum entered by Doretha Obrien RN 08/07/20 12:56: VO Dr Kirby for terminal extubation and TRIPPER now - Dilaudid 2mg IVP and Ativan 2mg IVP VO for extubation. Patient extubated with RT at bedside at 1255- Family at bedside. Will continue to monitor. Original Note: Historiographer at bedside for last rights per family request. Organ Bank referral called; ref # [id number] - patient denied for organ donation. Approved by management for Micki and daughter Mary to be present at bedside for terminal extubation. Family notified and awaiting arrival. aware. Will continue to monitor.
[2020-08-07] MEDS: Metoprolol Tartrate 12.5 MG HALFTAB PO (09:57)
[2020-08-07] MEDS: fentaNYL citrate/NS 1,000 MCG/100 ML PLAST..BAG 40 MCG IVCONT ×4 (09:57→17:04)
[2020-08-07] MEDS: LORazepam 2 MG/ML VIAL IVPUSH (12:55)
--- NOTE | 2020-08-07 13:23 | P.PNCC_ITS ---
Subjective Subjective Date of Service: 08/07/20 Interval History: Mr. Baltazar was admitted to ICU on July 25 with acute respiratory failure. The patient is a 70 yo male with h/o non-Hodgkin's lymphoma and CLL, being treated by Dr. Land at [facility] with imbruvica for a couple of years. 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 Was recently hospitalized at [facility] for cellulitis, Jun 27-Jul 09, and discharged from there for STR to [facility]. 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 The patient was sent to the ED on Jul 25 bec of confusion and change in mental status. Last seen by nurse practitioner on 07/21, and at that time reportedly the patient was healthy appearing, well nourished and well developed, without any significant change in mental status. In the ED was altered and became markedly delirious and agitated, requiring urgent intubation for airway protection. Underwent CT and diagnostic LP, both negative. Altered mental status thought possibly secondary to unintentional opioid overdose. Was initially empirically treated with vancomycin, Zosyn, and acyclovir, and admitted to ICU. Antibiotics subsequently changed to doxycycline for Gram-positive cocci in sputum and a left lower lobe infiltrate. Was extubated on July 28. At that time was reportedly confused but redirectable, and able to carry out limited conversation. During the period following extubation, was tachypneic with central venous pCO2?s in the 20?s. That night, the patient had multiple episodes of ventricular tachycardia. The following morning, an echo showed marked cardiomyopathy, w normal LV cavity size, moderately increased wall thickness, and severely decreased systolic function, EF 20-25%, with notable RWMAs. Overall suggestive of Takotsubo cardiomyopathy. Right atrial pressure was elevated with moderate pulmonary hypertension. Troponin bumped to 1500. The patient was given beta augustina, aspirin, and heparin drip x 48 hrs. Later that day, the patient developed respiratory distress refractory to noninvasive ventilation and required emergent intubation for hypoxemia and worsening mental status. Developed nonoliguric PATY presumed 2? poor forward goldy w. On Aug 02 & , attempts at weaning with PSV were assoc with flipped T waves, but no new enzyme bumps. Was unresponsive since I took over his care on Aug 04. We completely stopped all his propofol on 08/05, and he remained completely unresponsive all that day. 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 There was significant mass effect including 1 cm rightward midline shift/subfalcine herniation as well as left-sided uncal herniation with mass effect on the left cerebral peduncle. Images were rev by Dr. Em of neurosurgery at [facility]. It was his opinion that there were no therapeutic measures that would lead to recovery. I spoke to his and daughter. They came in and we spoke further. They decided on establishing comfort measures status today. This morning, he?s breathing spont but still no response to painful stimulation, no corneals, still positive dolls? eyes but more sluggish, and has a cough to deep sxn. PERRL, sluggish, about 4mm. See Vital Signs below. CVBG this morn showed 7.34/45/-2. No JVD. 1-2+ central edema. Chronic lymphedema of the left lower leg. No cellulitis. LABORATORY DATA: As below. BUN and creatinine steady. IMPRESSION: 1. Altered mental status 2? ICH on top of subacute infarct. MLS with incipient herniation. 2. Acute resp failure 2? aspiration and altered MS. 3. CMOP. LV function improved on Aug 04 echo. The cause of his cardiomyo edith remains unclear. 4. Acute kidney injury. 5. ID: Leukocytosis 2? CLL. No evidence of infection, no abx indicated. 6. H/o non-Hodgkin's lymphoma and CLL. ADDENDUM: Family came in this afternoon. I wrote MERCHANDISE COORDINATOR orders and we extubated at 1255. The patient continued breathing with the same rate. Has a moderate snore, which the tells me he always had. Has head and neck anatomy c/w EDY. I assured the family that he is comfortable and indicated that he could be like this for days. Critical care time: 1 hr. Physical Exam Vital Signs: Vital Signs: Last Vital Signs Temp 98.8 F 08/07/20 12:00 Pulse 86 08/07/20 12:00 Resp 32 H 08/07/20 12:00 BP 109/64 08/07/20 12:00 Pulse Ox 93 08/07/20 12:00 Body Mass Index 27.6 Objective Data Labs CBC & Chem 7: 08/07/20 05:52 08/07/20 05:52 Labs: Laboratory Results - last 24 hr 08/07/20 08/07/20 08/07/20 05:52 05:52 05:52 WBC 27.8 H RBC 3.18 L Hgb 8.8 L Hct 28.0 L MCV 88.1 MCH 27.7 MCHC 31.4 RDW 18.2 H Plt Count 545 H MPV 11.0 Immature Gran % (Auto) 1.5 H Neut % (Auto) 77.2 H Lymph % (Auto) 7.4 L [place] % (Auto) 11.2 H Eos % (Auto) 2.4 Baso % (Auto) 0.3 Lymph # (Auto) 2.1 [place] # (Auto) 3.1 H Eos # (Auto) 0.7 H Baso # (Auto) 0.1 Abs Immat Gran (auto) 0.42 H Absolute Neuts (auto) 21.4 H Absolute Nucleated RBC 0.000 Nucleated RBC % (auto) 0.0 VBG pH 7.34 VBG pCO2 45 VBG pO2 37 VBG HCO3 24 VBG O2 Saturation 69.8 VBG Base Excess -2.0 Sodium 140 Potassium 4.5 Chloride 108 Carbon Dioxide 24 Anion Gap 13 BUN 44 H Creatinine 0.75 Estim Creat Clear Calc 103.5 Estimated GFR > 60 Random Glucose 115 Calcium 8.2 L Microbiology Microbiology Results: Microbiology 08/04/20 22:54 Sputum - Suctioned Gram Stain - Final 08/04/20 22:54 Sputum - Suctioned Sputum Culture - Final 07/25/20 10:28 Blood - Venous Blood Culture - Final Coagulase-neg Staphyloccocus 07/25/20 10:59 Blood - Venous Blood Culture - Final No growth after 5 days. 07/25/20 15:07 Cerebrospinal Fluid Gram Stain - Final 07/25/20 15:07 Cerebrospinal Fluid CSF Examination - Final 07/25/20 15:07 Cerebrospinal Fluid Gross Specimen Examination - Final 07/25/20 15:07 Cerebrospinal Fluid CSF Culture - Final No growth after 3 days. 07/25/20 17:48 Urine Catheterized - Hill Catheter Urine Culture - Final No growth. 07/25/20 17:48 Sputum - Suctioned Gram Stain - Final 07/25/20 17:48 Sputum - Suctioned Sputum Culture - Final Progress Note: A&P Time Spent With Patient Time: Total time spent is greater than 50% in coordination of care (as documented) at patient's floor/unit and/or counseling patient: Total time spent with greater than 50% in coordination of care (as documented) at patient's floor/unit and/or counseling patient:: 0 Critical Care Time Critical Care Time (minutes): 60
[2020-08-07] MEDS: Scopolamine 1.5 MG PATCH.TD.3 EAR-BEHIND (14:01)
[2020-08-07 14:20] LABS: SLIDE REVIEW VERIFIED
[2020-08-07] MEDS: HYDROmorphone HCl/NS 10 MG/50 ML PIGGYBACK IV (22:53)
[2020-08-08 00:02] VITALS: RESP 38
[2020-08-08] MEDS: HYDROmorphone HCl 2 MG/ML VIAL IVPUSH (00:02)
[2020-08-08] MEDS: LORazepam 2 MG/ML VIAL IVPUSH (00:35)
--- NOTE | 2020-08-08 01:40 | P.PNCC_ITS ---
Critical Care Event Note Summary Code activated: No Narrative: Reason of : Cardiac Arrest, ICH / Brain herniation and Multiorgan Failure Please review history and physical, progress notes, consult and laboratories for details. The patient was suffering from the following conditions 1. Altered mental status 2? ICH on top of subacute infarct. MLS with incipient herniation. 2. Acute resp failure 2? aspiration and altered MS. 3. CMOP. LV function improved on Aug 04 echo. The cause of his cardiomyopathy remains unclear. 4. Acute kidney injury. 5. ID: Leukocytosis 2? CLL. No evidence of infection, no abx indicated. 6. H/o non-Hodgkin's lymphoma and CLL. Overall patient was admitted With mental status changes and the following conditions that were being treated in the hospital. The patient was extubated yesterday afternoon by Dr. 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 The patient was placed on a Dilaudid drip and comfortably passed a better life at 1:30 a.m., which I was notified by nursing personnel. I personally examined the patient At this time, the patient has no heartbeat, no palpable pulses, pupils are fixed at 5 mm bilaterally, overall that anterior chamber and cornea of the eyes appear glossy, no spontaneous breathing. There is no corneal reflexes bilaterally, capillary refill of the fingers and toes is significantly delayed and there is cyanosis with cool extremities. Patient was pronounced at 1:35 am . Certificate to be Completed. Organ Center Called by RN; patient's was also notified by the patient's nurse. Discussed in detail with Dr. Kirby. He is aware of all the above. Critical Care Time (minutes): 0
--- NOTE | 2020-10-27 13:25 | P.DN_ITS ---
Discharge Sum: Prov Provider Primary care physician: Naresh Reed MD Consults: 07/26/20 13:54 Consult to Infectious Diseases Routine Consulting Provider: Marialuisa Garcia Reason for consultation: Voriconazole Has provider been notified: Yes 07/30/20 13:32 Consult to Cardiology Routine Consulting Provider: Blayne Campbell Reason for consultation: rhythm change, low ef Has provider been notified: Yes Discharge Sum: Diag Contributing Factors (1) Ventricular tachycardia: Discharge Sum: Summary Date and Time Date of admission: 07/25/20 15:51 Date of : 08/08/20 Time of : 01:30 Summary Details: NOTE DISCHARGE DIAGNOSES: 1. Altered mental status on admission 2? toxic encephalopathy. 2. Acute resp failure 2? aspiration and altered MS. 3. CMOP. 4. Acute kidney injury. 5. Leukocytosis 2? CLL. 6. Non-Hodgkin's lymphoma and CLL. 7. Large left intraparenchymal hemorrhage, 2? 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 8. Smaller acute infarcts involving the left ventral thalamus, left basal ganglia, splenium of the corpus callosum. 9. Mass effect w subfalcine herniation as well as left-sided uncal herniation. Mr. Baltazar was a 70 yo male with h/o non-Hodgkin's lymphoma and CLL, being treated by Dr. Land at [facility] with imbruvica for some years. 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 He had been recently hospitalized at [facility] for cellulitis, Jun 27-Jul 09, and discharged from there for STR to [facility]. 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 The patient was sent to the ED on Jul 25 bec of confusion and change in mental status. Last seen by nurse practitioner on 07/21, and at that time reportedly the patient was healthy appearing, well nourished and well developed, without any significant change in mental status. In the ED, he was altered and became markedly delirious and agitated, requiring urgent intubation for airway protection. Underwent CT and diagnostic LP, both negative. Altered mental status was thought possibly secondary to unintentional opioid overdose. Was initially empirically treated with vancomycin, Zosyn, and acyclovir, and admitted to ICU. Antibiotics were subsequently changed to doxycycline for Gram-positive cocci in sputum and a left lower lobe infiltrate. He was extubated on July 28. At that time he was confused but redirectable, and able to carry out limited conversation. During the period following extubation, he was tachypneic with central venous pCO2?s in the 20?s. That night, the patient had multiple episodes of ventricular tachycardia. The following morning, an echo showed marked cardiomyopathy, w normal LV cavity size, moderately increased wall thickness, and severely decreased systolic function, EF 20-25%, with notable RWMAs, overall suggestive of Takotsubo cardiomyopathy. Right atrial pressure was elevated with moderate pulmonary hypertension. Troponin bumped to 1500. The patient was given beta augustina, aspirin, and heparin drip x 48 hrs. Later that day, the patient developed respiratory distress refractory to noninvasive ventilation and required emergent intubation for hypoxemia and worsening mental status. He developed nonoliguric PATY presumed 2? poor forward flow. On Aug 02 & , attempts at weaning with PSV were assoc with flipped T waves, but no new enzyme bumps. Subsequent to that, he remained unresponsive. We completely stopped all his propofol on Aug 05, and he remained completely unresponsive. 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 There was significant mass effect including 1 cm rightward midline shift/subfalcine herniation as well as left-sided uncal herniation with mass effect on the left cerebral peduncle. Images were rev by Dr. Em of neurosurgery at [facility]. It was his opinion that there were no therapeutic measures that would lead to recovery. We discussed that with the pt?s and daughter. Comfort measures were instituted . He comfortably passed at 1:30 am on Aug 08, 2020. Additional Data Attending physician: Duke Kirby
== END 2020-08-08 01:35 | disposition expired | DRG 208 ==
LOC: HO.ED 10:37 → HO.ICU 16:11
PROVIDERS: Internal Medicine; Internal Medicine Pulmonary Disease; Physician Assistant; Physician Assistant Medical; Registered Nurse Community Health; Admitting Provider Internal Medicine Cardiovascular Disease; Emergency Provider Internal Medicine; PCP Family Medicine; Visit Provider Anesthesiology
DX: J12.89 Other viral pneumonia (principal); G93.41 Metabolic encephalopathy; J96.01 Acute respiratory failure with hypoxia; I63.512 Cerebral infarction due to unspecified occlusion or stenosis of left middle cerebral artery; I61.6 Nontraumatic intracerebral hemorrhage, multiple localized; C91.10 Chronic lymphocytic leukemia of B-cell type not having achieved remission; E87.2 Acidosis; L51.2 Toxic epidermal necrolysis [Lyell]; L03.116 Cellulitis of left lower limb; I47.2 Ventricular tachycardia; I51.81 Takotsubo syndrome; N17.9 Acute kidney failure, unspecified; I12.9 Hypertensive chronic kidney disease with stage 1 through stage 4 chronic kidney disease, or unspecified chronic kidney disease; R94.31 Abnormal electrocardiogram [ECG] [EKG]; N18.9 Chronic kidney disease, unspecified; F31.9 Bipolar disorder, unspecified; R68.0 Hypothermia, not associated with low environmental temperature; Z20.828 Contact with and (suspected) exposure to other viral communicable diseases; Z79.891 Long term (current) use of opiate analgesic; Z79.890 Hormone replacement therapy; Z79.899 Other long term (current) drug therapy; Z66 Do not resuscitate
CPT/HCPCS: 0241U; 36415; 70450; 70460; 70553; 71045; 71260; 73590; 80048; 80053; 80076; 80202; 80307; 81003; 82040; 82140; 82607; 82746; 82803; 82945; 83605; 83735; 83880; 84100; 84157; 84439; 84443; 84481; 84484; 85007; 85025; 85027; 85060; 85610; 85730; 87015; 87040; 87070; 87086; 87147; 87205; 87389; 87449; 87476; 87640; 87641; 89051; 93005; 93306; 93308; 94002; 94003; 94640; 94660; 94799; 96361; 96365; 96366; 96367; 96375; 99285; 99291; A9585; C1758; J0153; J0282; J1170; J1650; J1940; J2060; J2543; J2997; J3010; J3370; J3411; P9047; Q9967